=== PATIENT | female | born 1930 | race Caucasian/White ===

== ENCOUNTER 2016-09-06 10:03 | Emergency (ER) | payer OTHER ==
[~2016-09-06] VITALS: Ht 154.9 cm; Wt 74.5 kg
[~2016-09-06 10:03] MED LIST: CLC100 PO; CLR10 PO; CMD6 PO; CRG25 PO; DVN80 PO; FRRG PO; MULT-506 PO; OXYSR10 PO; SYN100 PO; ZNTT/150 PO
[2016-09-06 10:11] VITALS: TEMP 37.1; O2SAT 98; Ht 154.9 cm; Wt 74.5 kg
--- NOTE | 2016-09-06 10:27 | EMERGENCY ROOM VISIT NOTE ---
History Report prepared by Tong: Alessio Garcia Under the Supervision of: Dr. Sebas Lagos M.D. First contact with patient: 10:05 Chief Complaint: DIZZY Stated Complaint: DIZZY Nursing Triage Summary: Patient arrives via ALS from [facility] with complaints of dizziness, light headed. Peter has history of HTN, DM, she checked her BSG when she woke up and it was WNL, checked her BP and it was reading 200's/100's. She called her PCP and they told her to come to ED. History of Present Illness The patient is a 86 year old female who presents to the Emergency Room with complaints of constant dizziness starting around 0500 this morning. She states that she feels fuzzy. She additionally states that this morning her blood pressure was very high around 208/98, and her heart was racing. The patient states that she took her blood pressure medication this morning, and she states that she has not missed any dosages. She denies any abdominal pain. She states that she has not hit her head recently, and she has not had a lot of salt recently other than lightly salted cashews. Source of History: patient Onset: 0500 Position: other (global) Quality: other (dizziness) Timing: constant Associated Symptoms: No abdominal pain Note: Associated symptoms: High blood pressure and fast heart rate Review of Systems See HPI for pertinent positives & negatives. A total of 10 systems reviewed and were otherwise negative. Past Medical & Surgical Surgical Problems: (1) H/O: hysterectomy (2) History of appendectomy Hypertension Social History Smoking Status: Never Smoker Marital Status: single Occupation Status: retired Current/Historical Medications Scheduled Amlodipine (Norvasc), 5 MG PO DAILY Calcium Carbonate-Vitamin D (Calcium 600 + D), 1 TAB PO DAILY Carvedilol (Coreg), 1 TAB PO BID Ibandronate Sodium (Boniva), 1 TAB PO MONTHLY Levothyroxine Sodium (Levothyroxine Sodium), 1 TAB PO DAILY Metformin Hcl (Glucophage), 500 MG PO BID Multiple Vitamins W/ Minerals (Centrum Silver 50+Women), 1 TAB PO DAILY Valsartan (Diovan), 320 MG PO DAILY Allergies Coded Allergies: Acetaminophen (Verified Adverse Reaction, Mild, NAUSEA; HEART RACES, ELEVATED TEMP, 09/06/16) Sulfa Drugs (Verified Adverse Reaction, Mild, NAUSEA, 09/06/16) Uncoded Allergies: UNCLAS THER/AG (Allergy, Unknown, ALLERGY TO CLOROX & COSMETIC PRODUCTS, 04/01/09) Physical Exam Vital Signs Date Time Temp Pulse Resp B/P (MAP) Pulse Ox O2 Delivery O2 Flow Rate FiO2 09/06/16 12:16 60 18 167/82 94 09/06/16 11:41 56 171/80 95 Room Air 09/06/16 11:00 09/06/16 10:55 63 178/84 97 191/94 74 193/88 09/06/16 10:30 68 18 192/151 96 Room Air 09/06/16 10:17 72 09/06/16 10:11 98 Room Air 09/06/16 10:11 37.1 69 18 224/83 99 Room Air Physical Exam GENERAL: Patient is a healthy-appearing well-nourished female HEAD: Normocephalic atraumatic EYES: Ocular movements intact pupils equal and react to light OROPHARYNX mucous membranes are moist no exudates present no erythema or edema present NECK: Supple no nuchal rigidity CHEST: Good equal expansion LUNGS: Clear and equal to auscultation CARDIAC: Normal S1 and S2 ABDOMEN: Soft nontender no guarding BACK: No CVA tenderness EXTREMITIES: No pain upon palpation normal muscle strength in all groups no clubbing cyanosis or edema NEURO: Patient is following commands and answering questions appropriately. Alert and oriented x3 Cranial Nerves 2-12 grossly intact Medical Decision & Procedures ER Provider Diagnostic Interpretation: Radiology results as stated below per my review and radiologist interpretation: CT HEAD WITHOUT CONTRAST (CT) CLINICAL HISTORY: Dizziness, left-sided facial numbness COMPARISON STUDY: No previous studies for comparison. TECHNIQUE: Axial CT of the brain is performed from the vertex to the skull base. IV contrast was not administered for this examination. CT DOSE: 638.56 mGycm FINDINGS: No intra or extra-axial mass lesions are visualized. There is no CT evidence of acute cortical infarction. There is no evidence of midline shift. There is no acute hemorrhage. No calvarial fractures are visualized. There are subtle white matter hypodensities likely on a small vessel basis. There is no evidence of pathologic ventricular dilatation. There is no evidence of acute sinusitis IMPRESSION: No acute intracranial findings Electronically signed by: Tang Ayala M.D. 09/06/2016 10:53 AM Dictated Date/Time: 09/06/2016 10:50 AM CHEST ONE VIEW PORTABLE CLINICAL HISTORY: Pt c/o SOB dyspnea COMPARISON STUDY: 09/29/2006 FINDINGS: Mild stable cardiomegaly. Slight interstitial prominence stable. Fixed hiatal hernia. Diaphragms smooth. No infiltrate IMPRESSION: Mild stable cardiomegaly. Mild chronic interstitial change. Fixed hiatal hernia. Electronically signed by: Rikki Saucedo M.D. 09/06/2016 10:48 AM Dictated Date/Time: 09/06/2016 10:47 AM Laboratory Results 09/06/16 10:27 Red Blood Count 4.79, Mean Corpuscular Volume 85.6, Mean Corpuscular Hemoglobin 29.9, Mean Corpuscular Hemoglobin Concent 34.9, Mean Platelet Volume 8.9, Neutrophils (%) (Auto) 66.9, Lymphocytes (%) (Auto) 23.2, Monocytes (%) (Auto) 7.2, Eosinophils (%) (Auto) 2.1, Basophils (%) (Auto) 0.4, Neutrophils # (Auto) 3.14, Lymphocytes # (Auto) 1.09, Monocytes # (Auto) 0.34, Eosinophils # (Auto) 0.10, Basophils # (Auto) 0.02 09/06/16 10:27 Test 09/06/16 10:21 09/06/16 10:27 09/06/16 10:54 Bedside Glucose 134 mg/dl (70-90) White Blood Count 4.70 K/uL (4.8-10.8) Red Blood Count 4.79 M/uL (4.2-5.4) Hemoglobin 14.3 g/dL (12.0-16.0) Hematocrit 41.0 % (37-47) Mean Corpuscular Volume 85.6 fL (80-100) Mean Corpuscular Hemoglobin 29.9 pg (25-34) Mean Corpuscular Hemoglobin Concent 34.9 g/dl (32-36) Platelet Count 225 K/uL (130-400) Mean Platelet Volume 8.9 fL (7.4-10.4) Neutrophils (%) (Auto) 66.9 % Lymphocytes (%) (Auto) 23.2 % Monocytes (%) (Auto) 7.2 % Eosinophils (%) (Auto) 2.1 % Basophils (%) (Auto) 0.4 % Neutrophils # (Auto) 3.14 K/uL (1.4-6.5) Lymphocytes # (Auto) 1.09 K/uL (1.2-3.4) Monocytes # (Auto) 0.34 K/uL (0.11-0.59) Eosinophils # (Auto) 0.10 K/uL (0-0.5) Basophils # (Auto) 0.02 K/uL (0-0.2) RDW Standard Deviation 43.0 fL (36.4-46.3) RDW Coefficient of Variation 13.8 % (11.5-14.5) Immature Granulocyte % (Auto) 0.2 % Immature Granulocyte # (Auto) 0.01 K/uL (0.00-0.02) Anion Gap 6.0 mmol/L (3-11) Est Creatinine Clear Calc Drug Dose 42.8 ml/min Estimated GFR () 69.9 Estimated GFR (Non- 60.3 BUN/Creatinine Ratio 19.5 (10-20) Calcium Level 9.6 mg/dl (8.5-10.1) Total Bilirubin 0.3 mg/dl (0.2-1) Direct Bilirubin < 0.1 mg/dl (0-0.2) Aspartate Amino Transf (AST/SGOT) 13 U/L (15-37) Alanine Aminotransferase (ALT/SGPT) 17 U/L (12-78) Alkaline Phosphatase 60 U/L (45-117) Total Creatine Kinase 70 U/L (26-192) Creatine Kinase MB 2.9 ng/ml (0.5-3.6) Creatine Kinase MB Ratio 4.1 (0-3.0) Troponin I < 0.015 ng/ml (0-0.045) Total Protein 7.8 gm/dl (6.4-8.2) Albumin 3.7 gm/dl (3.4-5.0) Thyroid Stimulating Hormone (TSH) 2.720 uIu/ml (0.300-4.500) Urine Color YELLOW Urine Appearance CLEAR (CLEAR) Urine pH 7.5 (4.5-7.5) Urine Specific [place] 1.010 (1.000-1.030) Urine Protein NEG (NEG) Urine Glucose (UA) NEG (NEG) Urine Ketones NEG (NEG) Urine Occult Blood NEG (NEG) Urine Nitrite NEG (NEG) Urine Bilirubin NEG (NEG) Urine Urobilinogen NEG (NEG) Urine Leukocyte Esterase NEG (NEG) Labs reviewed by ED physician. ECG Indication: other (dizziness) Rate (beats per minute): 69 Rhythm: sinus rhythm Findings: 1st degree AV block, no acute ischemic change, no ectopy, other (Old septal infarct) ED Course 1005: Past medical records reviewed. The patient was evaluated in room C4. A complete history and physical examination was performed. 1157: Upon reexamination the patient is feeling better. I discussed results and treatment plan with the patient. She verbalizes agreement and understanding. The patient is ready for discharge. Medical Decision Differential diagnosis: Etiologies such as benign hypertension, hypertensive emergency, cardiovascular pathology, pheochromocytoma, electrolyte abnormality, renal disease, endorgan damage, as well as others were entertained. Medication Reconciliation: I attest that I have personally reviewed the patient' s current medication list Blood Pressure Screening: Patient was found to have an elevated blood pressure and was referred to their primary care doctor for recheck and further treatment This is an 86-year-old female who presents emergency department complaining of hypertension. The patient really does not have any other complaints besides this. She did take her hypertensive blood medications this morning. She does admit to eating extra salty food yesterday. I advised the patient hold off on salts but advised follow-up with patient's primary care physician. The patient has a normal CT of the head as well as normal laboratory work. In addition the patient's blood pressure fell in the emergency department without me doing anything. Based on these findings I felt that the patient can be safely discharged home for follow-up with her primary care physician. Patient and family were in agreement with the treatment plan. Impression Primary Impression: Hypertension Scribe Attestation The scribe's documentation has been prepared under my direction and personally reviewed by me in its entirety. I confirm that the note above accurately reflects all work, treatment, procedures, and medical decision making performed by me. Departure Information Dispostion Home / Self-Care Referrals No Doctor, Assigned (PCP) Forms HOME CARE DOCUMENTATION FORM, IMPORTANT VISIT INFORMATION Patient Instructions Hypertension Jomar, My [facility] Additional Instructions You were found to have an elevated blood pressure today (>120 sytolic or >90 diastolic). Per medicare guidelines, you need to follow up with this blood pressure screening with your Primary Care Physician (PCP). For a new PCP call [phone]. You have been examined and treated today on an emergency basis only. This is not a substitute for, or an effort to provide, complete comprehensive medical care. It is impossible to recognize and treat all injuries or illnesses in a single emergency department visit. It is therefore important that you follow up closely with Dr Tracy. Call as soon as possible for an appointment. Thank you for your time and consideration. I look forward to speaking with you again soon. Please don't hesitate to call us if you have any questions. Problem Qualifiers Primary Impression: Hypertension Hypertension type: unspecified Qualified Codes: I10 - Essential (primary) hypertension
--- NOTE | 2016-09-06 10:49 | DIAGNOSTIC IMAGING REPORT ---
CHEST ONE VIEW PORTABLE CLINICAL HISTORY: Pt c/o SOB dyspnea COMPARISON STUDY: 09/29/2006 FINDINGS: Mild stable cardiomegaly. Slight interstitial prominence stable. Fixed hiatal hernia. Diaphragms smooth. No infiltrate IMPRESSION: Mild stable cardiomegaly. Mild chronic interstitial change. Fixed hiatal hernia. Electronically signed by: Rikki Saucedo M.D. 09/06/2016 10:48 AM Dictated Date/Time: 09/06/2016 10:47 AM
[2016-09-06 10:55] LABS: BASO % 0.4 %; BASO ABS # 0.02 K/uL (0-0.2); COMPLETE YES; EOS % 2.1 %; IG% 0.2 %; LYMPH % 23.2 %; LYMPH ABS # 1.09 K/uL (1.2-3.4); MEAN CELL VOLUME 85.6 fL (80-100); MEAN CORPUSCULAR HEMOGLOBIN 29.9 pg (25-34); MEAN CORPUSCULAR HGB CONC 34.9 g/dl (32-36); MEAN PLATELET VOLUME 8.9 fL (7.4-10.4); MONO % 7.2 %; NEUT % 66.9 %; PLATELET COUNT 225 K/uL (130-400); RED BLOOD COUNT 4.79 M/uL (4.2-5.4)
--- NOTE | 2016-09-06 10:55 | DIAGNOSTIC IMAGING REPORT ---
CT HEAD WITHOUT CONTRAST (CT) CLINICAL HISTORY: Dizziness, left-sided facial numbness COMPARISON STUDY: No previous studies for comparison. TECHNIQUE: Axial CT of the brain is performed from the vertex to the skull base. IV contrast was not administered for this examination. CT DOSE: 638.56 mGycm FINDINGS: No intra or extra-axial mass lesions are visualized. There is no CT evidence of acute cortical infarction. There is no evidence of midline shift. There is no acute hemorrhage. No calvarial fractures are visualized. There are subtle white matter hypodensities likely on a small vessel basis. There is no evidence of pathologic ventricular dilatation. There is no evidence of acute sinusitis IMPRESSION: No acute intracranial findings Electronically signed by: Tang Ayala M.D. 09/06/2016 10:53 AM Dictated Date/Time: 09/06/2016 10:50 AM
[2016-09-06 11:03] LABS: ALT/SGPT 17 U/L (12-78); BLOOD UREA NITROGEN 17 mg/dl (7-18); BUN/CREATININE RATIO 19.5 (10-20); CALCIUM 9.6 mg/dl (8.5-10.1); CARBON DIOXIDE 29 mmol/L (21-32); CHLORIDE 104 mmol/L (98-107); CREATININE 0.87 mg/dl (0.60-1.20); GLUCOSE 134 mg/dl (70-99); POTASSIUM 4.6 mmol/L (3.5-5.1); SODIUM 139 mmol/L (136-145)
[2016-09-06 11:13] LABS: ALKALINE PHOSPHATASE 60 U/L (45-117); AST/SGOT 13 U/L (15-37); CKMB/CK RATIO 4.1 (0-3.0)
[2016-09-06 11:14] LABS: URINE APPEARANCE CLEAR (CLEAR); URINE BILIRUBIN NEG (NEG); URINE COLOR YELLOW; URINE NITRITE NEG (NEG); URINE PH 7.5 (4.5-7.5); UROBILINOGEN NEG (NEG)
[2016-09-06 11:16] LABS: MANUAL MICROSCOPIC REQUIRED? NO; REVIEW REQ? NO
[2016-09-06] MEDS ORDERED: GLC/500 PO (11:25)
[2016-09-06] MEDS ORDERED: MULT-1092 PO (11:25)
[2016-09-06] MEDS ORDERED: VALS320T PO (11:25)
[2016-09-06] MEDS ORDERED: AMLO-110 PO (11:25)
[2016-09-06] MEDS ORDERED: IBAN150T PO (11:25)
[2016-09-06] MEDS ORDERED: CARV12.52 PO (11:25)
[2016-09-06] MEDS ORDERED: LEVO112T4 PO (11:25)
[2016-09-06] MEDS ORDERED: CALC-20 PO (11:25)
[2016-09-06 12:16] VITALS: BP 167/82; PULSE 60; O2SAT 94
[2016-11-09] MEDS ORDERED: LCTX PO (17:18)
[2016-11-09] MEDS ORDERED: AMOX500T PO (17:18)
[2016-12-05] MEDS ORDERED: DOXY-300 PO (15:12)
== END 2016-09-06 12:18 | disposition home or self-care (01) ==
LOC: EDBD 10:03 → C.EDC 10:04
DX: I10 Essential (primary) hypertension (principal); I44.0 Atrioventricular block, first degree; Z90.710 Acquired absence of both cervix and uterus; Z98.890 Other specified postprocedural states; Z79.84 Long term (current) use of oral hypoglycemic drugs; Z79.899 Other long term (current) drug therapy; Z88.2 Allergy status to sulfonamides; Z88.6 Allergy status to analgesic agent

== ENCOUNTER 2016-11-02 21:01 | Inpatient (IN) | payer OTHER ==
[~2016-11-02] VITALS: Ht 154.9 cm; Wt 68.5 kg
[~2016-11-02 21:01] MED LIST changes: +AMLO-110 PO; +CALC-20 PO; +CARV12.52 PO; -CLC100 PO; -CLR10 PO; -CMD6 PO; -CRG25 PO; -DVN80 PO; -FRRG PO; +GLC/500 PO; +IBAN150T PO; +LEVO112T4 PO; +MULT-1092 PO; -MULT-506 PO; -OXYSR10 PO; -SYN100 PO; +VALS320T PO; -ZNTT/150 PO
[2016-11-02] MEDS ORDERED: SODIUM CHLORIDE 0.9% 1000ML 1,000 ML IV STA (21:43)
--- NOTE | 2016-11-02 21:52 | EMERGENCY ROOM VISIT NOTE ---
History Report prepared by Tong: Mikey Lyn Under the Supervision of: Guanakito JimenezO. First contact with patient: 21:42 Chief Complaint: DIARRHEA Stated Complaint: DIARRHEA,NAUSEA,DRY HEAVES Nursing Triage Summary: Diarrhea since yesterday History of Present Illness The patient is a 86 year old female who presents to the Emergency Room with complaints of diarrhea that began yesterday. She notes that she has not felt well over the past week. She denies any sick contacts. She has had multiple episodes yesterday and about 15 today as well. She is also experiencing nausea, dry heaving, generalized weakness, and gas build up. She denies any vomiting or hematochezia. She denies any recent travel or antibiotic use. Source of History: patient Onset: yesterday Position: other (GI) Symptom Intensity: Multiple episodes Quality: other (Diarrhea) Timing: intermittent Associated Symptoms: + nausea, + weakness, No vomiting, No hematochezia Note: She is dry heaving as well. Review of Systems See HPI for pertinent positives and negatives. A total of ten systems were reviewed and were otherwise negative. Past Medical & Surgical Surgical Problems: (1) H/O: hysterectomy (2) History of appendectomy Family History Omitted secondary to the patient's age. Social History Smoking Status: Never Smoker Smokeless Tobacco Use: No Drug Use: none Marital Status: single Occupation Status: retired Current/Historical Medications Scheduled Amlodipine (Norvasc), 5 MG PO DAILY Calcium Carbonate-Vitamin D (Calcium 600 + D), 1 TAB PO DAILY Carvedilol (Coreg), 1 TAB PO BID Ibandronate Sodium (Boniva), 1 TAB PO MONTHLY Levothyroxine Sodium (Levothyroxine Sodium), 1 TAB PO DAILY Metformin Hcl (Glucophage), 500 MG PO BID Multiple Vitamins W/ Minerals (Centrum Silver 50+Women), 1 TAB PO DAILY Valsartan (Diovan), 320 MG PO DAILY Allergies Coded Allergies: Acetaminophen (Verified Adverse Reaction, Mild, NAUSEA; HEART RACES, ELEVATED TEMP, 09/06/16) Sulfa Drugs (Verified Adverse Reaction, Mild, NAUSEA, 09/06/16) Uncoded Allergies: UNCLAS THER/AG (Allergy, Unknown, ALLERGY TO CLOROX & COSMETIC PRODUCTS, 04/01/09) Physical Exam Vital Signs Date Time Temp Pulse Resp B/P (MAP) Pulse Ox O2 Delivery O2 Flow Rate FiO2 11/02/16 22:37 62 15 105/59 96 Room Air 11/02/16 22:15 64 11/02/16 21:23 37.0 67 19 145/75 95 Room Air Physical Exam GENERAL: Awake, alert, well-appearing, in no distress HENT: Normocephalic, atraumatic. Oropharynx unremarkable. EYES: Normal conjunctiva. Sclera non-icteric. NECK: Supple. No nuchal rigidity. FROM. No JVD. RESPIRATORY: Clear to auscultation. CARDIAC: Regular rate, normal rhythm. Extremities warm and well perfused. Pulses equal. ABDOMEN: Soft, non-distended. No tenderness to palpation. No rebound or guarding. No masses. RECTAL: Deferred. MUSCULOSKELETAL: Chest examination reveals no tenderness. The back is symmetrical on inspection without obvious abnormality. There is no CVA tenderness to palpation. No joint edema. LOWER EXTREMITIES: Calves are equal size bilaterally and non-tender. No edema. No discoloration. NEURO: Normal sensorium. No sensory or motor deficits noted. SKIN: No rash or jaundice noted. Medical Decision & Procedures Laboratory Results 11/02/16 21:53 Red Blood Count 4.37, Mean Corpuscular Volume 85.4, Mean Corpuscular Hemoglobin 29.5, Mean Corpuscular Hemoglobin Concent 34.6, Mean Platelet Volume 9.2, Neutrophils (%) (Auto) 78.1, Lymphocytes (%) (Auto) 14.3, Monocytes (%) (Auto) 4.4, Eosinophils (%) (Auto) 2.7, Basophils (%) (Auto) 0.2, Neutrophils # (Auto) 6.73, Lymphocytes # (Auto) 1.23, Monocytes # (Auto) 0.38, Eosinophils # (Auto) 0.23, Basophils # (Auto) 0.02 11/02/16 21:53 Test 11/02/16 21:43 11/02/16 21:53 White Blood Count 8.62 K/uL (4.8-10.8) Red Blood Count 4.37 M/uL (4.2-5.4) Hemoglobin 12.9 g/dL (12.0-16.0) Hematocrit 37.3 % (37-47) Mean Corpuscular Volume 85.4 fL (80-100) Mean Corpuscular Hemoglobin 29.5 pg (25-34) Mean Corpuscular Hemoglobin Concent 34.6 g/dl (32-36) Platelet Count 240 K/uL (130-400) Mean Platelet Volume 9.2 fL (7.4-10.4) Neutrophils (%) (Auto) 78.1 % Lymphocytes (%) (Auto) 14.3 % Monocytes (%) (Auto) 4.4 % Eosinophils (%) (Auto) 2.7 % Basophils (%) (Auto) 0.2 % Neutrophils # (Auto) 6.73 K/uL (1.4-6.5) Lymphocytes # (Auto) 1.23 K/uL (1.2-3.4) Monocytes # (Auto) 0.38 K/uL (0.11-0.59) Eosinophils # (Auto) 0.23 K/uL (0-0.5) Basophils # (Auto) 0.02 K/uL (0-0.2) RDW Standard Deviation 43.5 fL (36.4-46.3) RDW Coefficient of Variation 13.9 % (11.5-14.5) Immature Granulocyte % (Auto) 0.3 % Immature Granulocyte # (Auto) 0.03 K/uL (0.00-0.02) Anion Gap 9.0 mmol/L (3-11) Est Creatinine Clear Calc Drug Dose 23.8 ml/min Estimated GFR () 36.2 Estimated GFR (Non- 31.2 BUN/Creatinine Ratio 20.9 (10-20) Calcium Level 7.6 mg/dl (8.5-10.1) Total Bilirubin 0.5 mg/dl (0.2-1) Direct Bilirubin 0.2 mg/dl (0-0.2) Aspartate Amino Transf (AST/SGOT) 34 U/L (15-37) Alanine Aminotransferase (ALT/SGPT) 63 U/L (12-78) Alkaline Phosphatase 145 U/L (45-117) Total Protein 7.1 gm/dl (6.4-8.2) Albumin 3.3 gm/dl (3.4-5.0) Lipase 472 U/L (73-393) Laboratory results reviewed by me Medications Administered Medications (Trade) Dose Ordered Sig/Radha Route Start Time Stop Time Status Last Admin Dose Admin Sodium Chloride 1,000 ml @ 150 mls/hr [id number] STAT IV 11/02/16 21:43 11/03/16 04:22 11/02/16 21:43 150 MLS/HR ED Course 2141: The patient was evaluated in room C12B. A complete history and physical exam was performed. 2142: Ordered Sodium Chloride 1000 ml @ 150 mls/hr IV 2245: Upon reexamination, the patient was resting. I discussed the test results and treatment plan with her. I discussed the patient's case with Dr. Jody Wiley Hospitalist. The patient will be evaluated for further management. Medical Decision Differential diagnoses include dehydration, gastritis, gastroenteritis, and viral syndrome. Patient started on IV fluids, IV Zofran. Patient found to have an elevated BUN/ creatinine as well as a mildly elevated lipase. Do not suspect significant pancreatitis she has mild dehydration continues to complain of weakness. [facility] Medication Reconcilliation Current Medication List: was personally reviewed by me Blood Pressure Screening Patient's blood pressure: Elevated blood pressure Blood pressure disposition: Elevated BP felt to be situational Consults Time Called: [phone] Consulting Physician: Dr. Jody Wiley Hospitalist Returned Call: [phone] Discussed the patient's case. The patient will be evaluated for further treatment and disposition. Impression Primary Impression: Dehydration Additional Impression: Diarrhea Scribe Attestation The scribe's documentation has been prepared under my direction and personally reviewed by me in its entirety. I confirm that the note above accurately reflects all work, treatment, procedures, and medical decision making performed by me. Departure Information Dispostion Being Evaluated By Hospitalist Referrals Tony Tracy M.D. (PCP) Patient Instructions My [facility] Problem Qualifiers
[2016-11-02 22:08] LABS: BASO % 0.2 %; BASO ABS # 0.02 K/uL (0-0.2); COMPLETE YES; EOS % 2.7 %; HEMATOCRIT 37.3 % (37-47); IG% 0.3 %; LYMPH % 14.3 %; LYMPH ABS # 1.23 K/uL (1.2-3.4); MEAN CELL VOLUME 85.4 fL (80-100); MEAN CORPUSCULAR HEMOGLOBIN 29.5 pg (25-34); MEAN CORPUSCULAR HGB CONC 34.6 g/dl (32-36); MEAN PLATELET VOLUME 9.2 fL (7.4-10.4); MONO % 4.4 %; NEUT % 78.1 %; PLATELET COUNT 240 K/uL (130-400); RED BLOOD COUNT 4.37 M/uL (4.2-5.4); WHITE BLOOD COUNT 8.62 K/uL (4.8-10.8)
[2016-11-02 22:28] LABS: BUN/CREATININE RATIO 20.9 (10-20); CALCIUM 7.6 mg/dl (8.5-10.1); CREATININE 1.5 mg/dl (0.60-1.20); POTASSIUM 3.4 mmol/L (3.5-5.1)
[2016-11-02 22:58] LABS: URINE APPEARANCE CLEAR (CLEAR); URINE BILIRUBIN NEG (NEG); URINE COLOR YELLOW; URINE NITRITE NEG (NEG); URINE SPECIFIC GRAVITY 1.018 (1.000-1.030); UROBILINOGEN NEG (NEG); ZZUR CULT IF INDIC CLEAN CATCH NO
[2016-11-02 23:00] LABS: MANUAL MICROSCOPIC REQUIRED? NO; REVIEW REQ? NO
[2016-11-02] MEDS ORDERED: METO50TA16 PO (23:04)
--- NOTE | 2016-11-03 00:08 | History and Physical ---
History & Physical Date & Time of Service: Nov 02, 2016 at 23:53 Chief Complaint: Diarrhea,Nausea,Dry Heaves Primary Care Physician: Tony Tracy M.D. History of Present Illness Source: patient, clinic records 86 year old female with history of DM on oral medications, HTN, Hypothyroidism, CKD 3, presenting with persistent diarrhea since 1 day prior to admission. Follows with Dr. Tracy for PCP. Lives in a Senior Apartment Complex. Patient was at her usual state of health, independent with activities of daily living, until yesterday when she started to have multiple episodes(10-15) of diarrhea, loose, watery, with occasional tinge of blood (attributed to hemorrhoids) associated with vague mild abdominal discomfort and weakness, poor appetite. Denies fever/chills. Today, the diarrhea persisted and patient also reports nausea. She was then brought to the ED. Upon arrival, patient was afebrile, stable BP. Crea elevated at 1.5 and K low at 3.4. She was given IV NSS. On exam, patient seen sitting up in bed, alert, appears comfortable, pleasant. Has mild vague generalized abdominal discomfort and mild nausea, otherwise denies other symptoms. Family History HTN parents Social History Smoking Status: Never Smoker Smokeless Tobacco Use: No Drug Use: none Marital Status: single Housing status: other ([facility] Occupational Status: retired Immunizations History of Influenza Vaccine: No History of Tetanus Vaccine?: Yes History of Pneumococcal: Yes History of Hepatitis B Vaccine: No Allergies Coded Allergies: Acetaminophen (Verified Adverse Reaction, Mild, NAUSEA; HEART RACES, ELEVATED TEMP, 11/02/16) Sulfa Drugs (Verified Adverse Reaction, Mild, NAUSEA, 11/02/16) Uncoded Allergies: UNCLAS THER/AG (Allergy, Unknown, ALLERGY TO [employer]OX & [employer]METIC PRODUCTS, 04/01/09) Home Medications Scheduled Amlodipine (Norvasc), 5 MG PO DAILY Calcium Carbonate-Vitamin D (Calcium 600 + D), 1 TAB PO DAILY Carvedilol (Coreg), 1 TAB PO BID Ibandronate Sodium (Boniva), 1 TAB PO MONTHLY Levothyroxine Sodium (Levothyroxine Sodium), 1 TAB PO DAILY Metformin Hcl (Glucophage), 500 MG PO BID Metoprolol Tartrate (Lopressor) (Lopressor), 50 MG PO BID Multiple Vitamins W/ Minerals (Centrum Silver 50+Women), 1 TAB PO DAILY Valsartan (Diovan), 320 MG PO DAILY Review of Systems Constitutional- no fever; no weight loss Eyes- no acute visual changes ENT- no sinus drainage; no pharyngitis Pulmonary- no cough, no wheezing, no shortness of breath Cardiac- no chest pain, no palpitations, no orthopnea, no dependent edema GI- (+) as noted above - no dysuria, no hematuria Musculoskeletal- no arthralgias, no myalgias Derm- no rashes, no new skin lesions, no changing skin lesions Hematologic- no unusual bruising, no unusual bleeding Lymphatics- no adenopathy Endocrine- no polyuria or polydipsia; no heat or cold intolerance Neuro- no headaches, no focal neurologic symptoms Psych- no anxiety, no depression Physical Exam Vital Signs Date Time Temp Pulse Resp B/P (MAP) Pulse Ox O2 Delivery O2 Flow Rate FiO2 11/02/16 22:37 62 15 105/59 96 Room Air 11/02/16 22:15 64 11/02/16 21:23 37.0 67 19 145/75 95 Room Air General Appearance: WD/WN, no apparent distress Head: normocephalic, atraumatic Eyes: normal inspection, EOMI, sclerae normal ENT: hearing grossly normal, pharynx normal, + pertinent finding (dry oral mucosa) Neck: supple, no adenopathy, thyroid normal, no JVD, trachea midline Respiratory/Chest: chest non-tender, lungs clear, normal breath sounds, no respiratory distress, no accessory muscle use Cardiovascular: regular rate, rhythm, no edema, no JVD, no murmur Abdomen/GI: non tender, soft, + abnormal bowel sounds (hyperactive), + pertinent finding (non distended) Back: normal inspection, no CVA tenderness Extremities/Musculoskelatal: normal inspection, no calf tenderness, no pedal edema, normal range of motion, non-tender 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, no motor/sensory deficits, alert, normal mood/affect, oriented x 3 Skin: normal color, warm/dry, no rash Lymphatic: no adenopathy Diagnostics Laboratory Results Results Past 24 Hours Test 11/02/16 21:53 11/02/16 22:35 11/02/16 23:42 Range/Units White Blood Count 8.62 4.8-10.8 K/uL Red Blood Count 4.37 4.2-5.4 M/uL Hemoglobin 12.9 12.0-16.0 g/dL Hematocrit 37.3 37-47 % Mean Corpuscular Volume 85.4 80-100 fL Mean Corpuscular Hemoglobin 29.5 25-34 pg Mean Corpuscular Hemoglobin Concent 34.6 32-36 g/dl Platelet Count 240 130-400 K/uL Mean Platelet Volume 9.2 7.4-10.4 fL Neutrophils (%) (Auto) 78.1 % Lymphocytes (%) (Auto) 14.3 % Monocytes (%) (Auto) 4.4 % Eosinophils (%) (Auto) 2.7 % Basophils (%) (Auto) 0.2 % Neutrophils # (Auto) 6.73 1.4-6.5 K/uL Lymphocytes # (Auto) 1.23 1.2-3.4 K/uL Monocytes # (Auto) 0.38 0.11-0.59 K/uL Eosinophils # (Auto) 0.23 0-0.5 K/uL Basophils # (Auto) 0.02 0-0.2 K/uL RDW Standard Deviation 43.5 36.4-46.3 fL RDW Coefficient of Variation 13.9 11.5-14.5 % Immature Granulocyte % (Auto) 0.3 % Immature Granulocyte # (Auto) 0.03 0.00-0.02 K/uL Sodium Level 134 136-145 mmol/L Potassium Level 3.4 3.5-5.1 mmol/L Chloride Level 103 98-107 mmol/L Carbon Dioxide Level 22 21-32 mmol/L Anion Gap 9.0 3-11 mmol/L Blood Urea Nitrogen 31 7-18 mg/dl Creatinine 1.50 0.60-1.20 mg/dl Est Creatinine Clear Calc Drug Dose 23.8 ml/min Estimated GFR () 36.2 Estimated GFR (Non- 31.2 BUN/Creatinine Ratio 20.9 10-20 Random Glucose 185 70-99 mg/dl Calcium Level 7.6 8.5-10.1 mg/dl Total Bilirubin 0.5 0.2-1 mg/dl Direct Bilirubin 0.2 0-0.2 mg/dl Aspartate Amino Transf (AST/SGOT) 34 15-37 U/L Alanine Aminotransferase (ALT/SGPT) 63 12-78 U/L Alkaline Phosphatase 145 45-117 U/L Total Protein 7.1 6.4-8.2 gm/dl Albumin 3.3 3.4-5.0 gm/dl Lipase 472 73-393 U/L Urine Color YELLOW Urine Appearance CLEAR CLEAR Urine pH 5.0 4.5-7.5 Urine Specific [place] 1.018 1.000-1.030 Urine Protein NEG NEG Urine Glucose (UA) NEG NEG Urine Ketones NEG NEG Urine Occult Blood NEG NEG Urine Nitrite NEG NEG Urine Bilirubin NEG NEG Urine Urobilinogen NEG NEG Urine Leukocyte Esterase NEG NEG EKG pending Impression Assessment and Plan 86 year old female with history of DM on oral medications, HTN, Hypothyroidism, CKD 3, presenting with persistent diarrhea since 1 day prior to admission. ACUTE GASTROENTERITIS - with dehydration, acute renal failure - BM > 10/day - ff up stool culture and C diff - empiric Cipro and Flagyl hold Imodium until C diff ruled out - IV NSS at 125 cc/hr, monitor volume status and decrease rate accordingly - monitor electrolytes - reports occasional tinge of blood in the stools, attributed to hemorrhoids monitor HYPOKALEMIA - from GI losses - PO K ordered check Mg ACUTE RENAL FAILURE ON CKD 3 likely pre renal from Diarrhea IV NSS hold SERENITY I and Metformin MILD LIPASE ELEVATION denies epigastric abdominal pain repeat Lipase in AM DM 2 on Metformin and Starlix-- HOLD for now ISS ordered HTN BP marginal continue Coreg, hold Losartan and Amlodipine HYPOTHYROIDISM continue Lthyroxine SCDs for DVT prophylaxis FULL CODE per patient Disposition anticipate d/c to her apartment when medically stable ff up with Dr. Tracy for PCP VTE Prophylaxis VTE Risk Assessment Done? Y/N: Yes Risk Level: Moderate Given or contraindicated: SCD's
[2016-11-03 00:10] LABS: MAGNESIUM 1.5 mg/dl (1.8-2.4)
[2016-11-03] MEDS ORDERED: POTASSIUM CHLORIDE 10 MEQ TABCR PO STA (00:29)
[2016-11-03 01:00] VITALS: BP 129/72; PULSE 65; TEMP 36.7; O2SAT 95; Ht 154.9 cm; Wt 68.5 kg
[2016-11-03] MEDS: SODIUM CHLORIDE 0.9% 1000ML 1,000 ML IV SCH ×3 (01:18→20:20)
[2016-11-03] MEDS ORDERED: CIPROFLOXACIN CONSULT ACTIVE PRN ×2 (01:27)
[2016-11-03] MEDS ORDERED: CIPROFLOXACIN 500 MG TAB PO STA (01:31)
[2016-11-03] MEDS ORDERED: MAGNESIUM SULFATE 1GM / D5W 1 GM in PREMIXED IN D5W 100 ML IV STA (05:38)
[2016-11-03] MEDS: LEVOTHYROXINE 112 MCG TAB PO SCH (06:02)
[2016-11-03 07:24] VITALS: BP 108/63; PULSE 60; TEMP 36.9; O2SAT 96
[2016-11-03] MEDS: METRONIDAZOLE 500 MG TAB PO SCH ×3 (07:36→20:18)
[2016-11-03] MEDS: CARVEDILOL 12.5 MG TAB PO SCH ×2 (07:36→20:19)
[2016-11-03 08:29] LABS: BASO % 0.3 %; BASO ABS # 0.02 K/uL (0-0.2); COMPLETE YES; HEMATOCRIT 36.6 % (37-47); IG% 0.3 %; LYMPH % 16.1 %; LYMPH ABS # 1.02 K/uL (1.2-3.4); MEAN CELL VOLUME 85.3 fL (80-100); MEAN CORPUSCULAR HEMOGLOBIN 29.6 pg (25-34); MEAN CORPUSCULAR HGB CONC 34.7 g/dl (32-36); MEAN PLATELET VOLUME 9.4 fL (7.4-10.4); MONO % 9.6 %; NEUT % 68.7 %; PLATELET COUNT 219 K/uL (130-400); RED BLOOD COUNT 4.29 M/uL (4.2-5.4); WHITE BLOOD COUNT 6.34 K/uL (4.8-10.8)
[2016-11-03 09:14] LABS: BUN/CREATININE RATIO 23.2 (10-20); CALCIUM 7.8 mg/dl (8.5-10.1); CREATININE 1.1 mg/dl (0.60-1.20); MAGNESIUM 2.1 mg/dl (1.8-2.4); POTASSIUM 3.7 mmol/L (3.5-5.1)
[2016-11-03] MEDS: CIPROFLOXACIN 250 MG TAB PO SCH ×2 (10:33→20:19)
[2016-11-03 14:59] VITALS: BP 127/71; PULSE 64; TEMP 36.7; O2SAT 95
--- NOTE | 2016-11-03 17:10 | Progress Note ---
Internal Med Progress Note Date of Service: Nov 03, 2016. Provider Documentation: SUBJECTIVE: diarrhea is improving tolerating clears fine no abdominal pain or nausea afebrile no sob OBJECTIVE: Vital Signs-as noted below Exam: General-alert and oriented. Not in distress ENT-normal hearing Neck-no neck masses Lungs-cta b/l no wheezing no crackles Heart-s1 and s2 heard regular rhythm, no murmurs Abdomen-soft bowel sounds present non tender no distension Extremities no edema present no erythema Neuro-alert and oriented moves extremities Lab data as noted below. ASSESSMENT & PLAN: 86 year old female with history of DM on oral medications, HTN, Hypothyroidism, CKD 3, presenting with persistent diarrhea since 1 day prior to admission. ACUTE GASTROENTERITIS Presented with dehydration, acute renal failure BM > 10/day Will ff up stool culture and C diff on empiric Cipro and Flagyl on iv fluids improving tolerating clears- will advance to full liquid diet cut back on fluids HYPOKALEMIA replaced ACUTE RENAL FAILURE ON CKD 3 holding SERENITY I and Metformin iv fluids resolved MILD LIPASE ELEVATION denies epigastric abdominal pain repeat Lipase in AM improved DM 2 on Metformin and Starlix-- HELD for now ISS ordered will monitor HTN BP marginal continue Coreg, holding Losartan and Amlodipine will monitor. HYPOTHYROIDISM continue Levothyroxine SCDs for DVT prophylaxis FULL CODE per patient DISPOSITION to be determined Vital Signs: Date Time Temp Pulse Resp B/P (MAP) Pulse Ox O2 Delivery O2 Flow Rate FiO2 11/03/16 14:59 36.7 64 16 127/71 (89) 95 Room Air 11/03/16 07:30 Room Air 11/03/16 07:24 36.9 60 16 108/63 (78) 96 Room Air 11/03/16 01:00 36.7 65 18 129/72 95 Room Air 11/03/16 00:32 67 18 117/68 98 11/02/16 22:37 62 15 105/59 96 Room Air 11/02/16 22:15 64 11/02/16 21:23 37.0 67 19 145/75 95 Room Air Lab Results: Results Past 24 Hours Test 11/02/16 21:53 11/02/16 22:35 11/03/16 07:59 Range/Units White Blood Count 8.62 6.34 4.8-10.8 K/uL Red Blood Count 4.37 4.29 4.2-5.4 M/uL Hemoglobin 12.9 12.7 12.0-16.0 g/dL Hematocrit 37.3 36.6 37-47 % Mean Corpuscular Volume 85.4 85.3 80-100 fL Mean Corpuscular Hemoglobin 29.5 29.6 25-34 pg Mean Corpuscular Hemoglobin Concent 34.6 34.7 32-36 g/dl Platelet Count 240 219 130-400 K/uL Mean Platelet Volume 9.2 9.4 7.4-10.4 fL Neutrophils (%) (Auto) 78.1 68.7 % Lymphocytes (%) (Auto) 14.3 16.1 % Monocytes (%) (Auto) 4.4 9.6 % Eosinophils (%) (Auto) 2.7 5.0 % Basophils (%) (Auto) 0.2 0.3 % Neutrophils # (Auto) 6.73 4.35 1.4-6.5 K/uL Lymphocytes # (Auto) 1.23 1.02 1.2-3.4 K/uL Monocytes # (Auto) 0.38 0.61 0.11-0.59 K/uL Eosinophils # (Auto) 0.23 0.32 0-0.5 K/uL Basophils # (Auto) 0.02 0.02 0-0.2 K/uL RDW Standard Deviation 43.5 43.6 36.4-46.3 fL RDW Coefficient of Variation 13.9 14.1 11.5-14.5 % Immature Granulocyte % (Auto) 0.3 0.3 % Immature Granulocyte # (Auto) 0.03 0.02 0.00-0.02 K/uL Sodium Level 134 138 136-145 mmol/L Potassium Level 3.4 3.7 3.5-5.1 mmol/L Chloride Level 103 108 98-107 mmol/L Carbon Dioxide Level 22 23 21-32 mmol/L Anion Gap 9.0 7.0 3-11 mmol/L Blood Urea Nitrogen 31 26 7-18 mg/dl Creatinine 1.50 1.10 0.60-1.20 mg/dl Est Creatinine Clear Calc Drug Dose 23.8 32.5 ml/min Estimated GFR () 36.2 52.6 Estimated GFR (Non- 31.2 45.4 BUN/Creatinine Ratio 20.9 23.2 10-20 Random Glucose 185 142 70-99 mg/dl Calcium Level 7.6 7.8 8.5-10.1 mg/dl Magnesium Level 1.5 2.1 1.8-2.4 mg/dl Total Bilirubin 0.5 0.2-1 mg/dl Direct Bilirubin 0.2 0-0.2 mg/dl Aspartate Amino Transf (AST/SGOT) 34 15-37 U/L Alanine Aminotransferase (ALT/SGPT) 63 12-78 U/L Alkaline Phosphatase 145 45-117 U/L Total Protein 7.1 6.4-8.2 gm/dl Albumin 3.3 3.4-5.0 gm/dl Lipase 472 239 73-393 U/L Urine Color YELLOW Urine Appearance CLEAR CLEAR Urine pH 5.0 4.5-7.5 Urine Specific [place] 1.018 1.000-1.030 Urine Protein NEG NEG Urine Glucose (UA) NEG NEG Urine Ketones NEG NEG Urine Occult Blood NEG NEG Urine Nitrite NEG NEG Urine Bilirubin NEG NEG Urine Urobilinogen NEG NEG Urine Leukocyte Esterase NEG NEG
[2016-11-03 19:43] VITALS: BP 134/64; PULSE 63; TEMP 36.3; O2SAT 97
[2016-11-04 00:30] VITALS: BP 123/70; PULSE 55; TEMP 36.7; O2SAT 93
[2016-11-04] MEDS: LEVOTHYROXINE 112 MCG TAB PO SCH (06:12)
[2016-11-04 07:09] VITALS: BP 147/63; PULSE 57; TEMP 36.7; O2SAT 92
[2016-11-04 07:59] LABS: BASO % 0.4 %; BASO ABS # 0.02 K/uL (0-0.2); COMPLETE YES; HEMATOCRIT 38.3 % (37-47); IG% 0.2 %; LYMPH % 22.2 %; LYMPH ABS # 1.12 K/uL (1.2-3.4); MEAN CELL VOLUME 87.4 fL (80-100); MEAN CORPUSCULAR HEMOGLOBIN 28.1 pg (25-34); MEAN CORPUSCULAR HGB CONC 32.1 g/dl (32-36); MEAN PLATELET VOLUME 9.5 fL (7.4-10.4); MONO % 6.7 %; NEUT % 64.5 %; PLATELET COUNT 218 K/uL (130-400); RED BLOOD COUNT 4.38 M/uL (4.2-5.4); WHITE BLOOD COUNT 5.04 K/uL (4.8-10.8)
[2016-11-04] MEDS: METRONIDAZOLE 500 MG TAB PO SCH ×3 (08:29→20:12)
[2016-11-04] MEDS: CARVEDILOL 12.5 MG TAB PO SCH ×2 (08:30→20:12)
[2016-11-04] MEDS: SODIUM CHLORIDE 0.9% 1000ML 1,000 ML IV SCH (08:31)
[2016-11-04 08:32] VITALS: PULSE 64
[2016-11-04 08:50] LABS: BUN/CREATININE RATIO 17.5 (10-20); CALCIUM 8.3 mg/dl (8.5-10.1); CREATININE 0.76 mg/dl (0.60-1.20); MAGNESIUM 1.9 mg/dl (1.8-2.4); POTASSIUM 4.1 mmol/L (3.5-5.1)
[2016-11-04] MEDS: CIPROFLOXACIN 250 MG TAB PO SCH ×2 (10:10→22:04)
--- NOTE | 2016-11-04 15:15 | Progress Note ---
Internal Med Progress Note Date of Service: Nov 04, 2016. Provider Documentation: SUBJECTIVE: feeling much better today had only one bowel movement today which was loose afebrile no sob no abdominal pain tolerating full liquid diet fine. OBJECTIVE: Vital Signs-as noted below Exam: General-alert and oriented. Not in distress ENT-normal hearing Neck-no neck masses Lungs-cta b/l no wheezing no crackles Heart-s1 and s2 heard regular rhythm, no murmurs Abdomen-soft bowel sounds present non tender no distension Extremities no edema present no erythema Neuro-alert and oriented moves extremities Lab data as noted below. ASSESSMENT & PLAN: 86 year old female with history of DM on oral medications, HTN, Hypothyroidism, CKD 3, presenting with persistent diarrhea since 1 day prior to admission. ACUTE GASTROENTERITIS Presented with dehydration, acute renal failure BM > 10/day Will ff up stool culture and C diff on empiric Cipro and Flagyl on iv fluids improving tolerating full liquid diet advancing diet to soft diet will monitor HYPOKALEMIA replaced ACUTE RENAL FAILURE ON CKD 3 holding SERENITY I and Metformin iv fluids resolved MILD LIPASE ELEVATION denies epigastric abdominal pain repeat Lipase in AM improved DM 2 on Metformin and Starlix-- HELD for now ISS ordered will monitor HTN BP marginal continue Coreg, holding Losartan and Amlodipine which will be restarted will monitor. HYPOTHYROIDISM continue Levothyroxine SCDs for DVT prophylaxis FULL CODE per patient DISPOSITION pt/ot to be determined possible d/c in 1-2 days Vital Signs: Date Time Temp Pulse Resp B/P (MAP) Pulse Ox O2 Delivery O2 Flow Rate FiO2 11/04/16 08:32 64 11/04/16 08:00 Room Air 11/04/16 07:09 36.7 57 18 147/63 (91) 92 Room Air 11/04/16 00:30 36.7 55 18 123/70 (87) 93 Room Air 11/04/16 00:00 Room Air 11/03/16 19:43 36.3 63 18 134/64 (87) 97 Room Air 11/03/16 16:00 Room Air Lab Results: Results Past 24 Hours Test 11/04/16 07:22 Range/Units White Blood Count 5.04 4.8-10.8 K/uL Red Blood Count 4.38 4.2-5.4 M/uL Hemoglobin 12.3 12.0-16.0 g/dL Hematocrit 38.3 37-47 % Mean Corpuscular Volume 87.4 80-100 fL Mean Corpuscular Hemoglobin 28.1 25-34 pg Mean Corpuscular Hemoglobin Concent 32.1 32-36 g/dl Platelet Count 218 130-400 K/uL Mean Platelet Volume 9.5 7.4-10.4 fL Neutrophils (%) (Auto) 64.5 % Lymphocytes (%) (Auto) 22.2 % Monocytes (%) (Auto) 6.7 % Eosinophils (%) (Auto) 6.0 % Basophils (%) (Auto) 0.4 % Neutrophils # (Auto) 3.25 1.4-6.5 K/uL Lymphocytes # (Auto) 1.12 1.2-3.4 K/uL Monocytes # (Auto) 0.34 0.11-0.59 K/uL Eosinophils # (Auto) 0.30 0-0.5 K/uL Basophils # (Auto) 0.02 0-0.2 K/uL RDW Standard Deviation 45.4 36.4-46.3 fL RDW Coefficient of Variation 14.3 11.5-14.5 % Immature Granulocyte % (Auto) 0.2 % Immature Granulocyte # (Auto) 0.01 0.00-0.02 K/uL Sodium Level 143 136-145 mmol/L Potassium Level 4.1 3.5-5.1 mmol/L Chloride Level 113 98-107 mmol/L Carbon Dioxide Level 21 21-32 mmol/L Anion Gap 9.0 3-11 mmol/L Blood Urea Nitrogen 13 7-18 mg/dl Creatinine 0.76 0.60-1.20 mg/dl Est Creatinine Clear Calc Drug Dose 47.0 ml/min Estimated GFR () 82.3 Estimated GFR (Non- 71.0 BUN/Creatinine Ratio 17.5 10-20 Random Glucose 126 70-99 mg/dl Calcium Level 8.3 8.5-10.1 mg/dl Magnesium Level 1.9 1.8-2.4 mg/dl Microbiology Results 11/04/16 C.difficile Toxin B Gene (PCR) - Final, Complete No C. difficile toxin B gene detected 11/04/16 Shiga Toxin Test, Received Pending 11/04/16 Stool Culture, Received Pending
[2016-11-04 15:18] VITALS: BP 121/60; PULSE 58; TEMP 36.8; O2SAT 94
[2016-11-04 20:11] VITALS: BP 148/90; PULSE 83
[2016-11-04 23:40] VITALS: BP 172/71; PULSE 56; TEMP 36.8; O2SAT 95
[2016-11-05 02:53] VITALS: BP 159/60; PULSE 60
[2016-11-05] MEDS: LEVOTHYROXINE 112 MCG TAB PO SCH (06:33)
[2016-11-05 07:21] VITALS: BP 165/65; PULSE 54; TEMP 36.7; O2SAT 94
[2016-11-05 07:34] LABS: BASO % 0.8 %; BASO ABS # 0.04 K/uL (0-0.2); COMPLETE YES; EOS % 6.9 %; HEMATOCRIT 36.1 % (37-47); IG% 0.4 %; LYMPH % 25.7 %; LYMPH ABS # 1.26 K/uL (1.2-3.4); MEAN CELL VOLUME 86.2 fL (80-100); MEAN CORPUSCULAR HEMOGLOBIN 28.4 pg (25-34); MEAN PLATELET VOLUME 9.7 fL (7.4-10.4); MONO % 11.2 %; PLATELET COUNT 199 K/uL (130-400); RED BLOOD COUNT 4.19 M/uL (4.2-5.4); WHITE BLOOD COUNT 4.91 K/uL (4.8-10.8)
[2016-11-05 07:39] VITALS: PULSE 62
[2016-11-05] MEDS: CARVEDILOL 12.5 MG TAB PO SCH (07:40)
[2016-11-05] MEDS: METRONIDAZOLE 500 MG TAB PO SCH (07:40)
[2016-11-05] MEDS ORDERED: AMLODIPINE BESYLATE 5 MG TAB PO SCH (08:00)
[2016-11-05] MEDS ORDERED: VALSARTAN 80 MG TAB PO SCH (08:00)
[2016-11-05] MEDS ORDERED: METOPROLOL TARTRATE 50 MG TAB PO SCH (08:00)
[2016-11-05 08:02] LABS: BUN/CREATININE RATIO 12.2 (10-20); CALCIUM 8.8 mg/dl (8.5-10.1); CREATININE 0.81 mg/dl (0.60-1.20); MAGNESIUM 1.6 mg/dl (1.8-2.4); POTASSIUM 3.8 mmol/L (3.5-5.1)
[2016-11-05] MEDS ORDERED: MAGNESIUM SULFATE 1GM / D5W 1 GM in PREMIXED IN D5W 100 ML IV SCH (08:30)
[2016-11-05] MEDS: CIPROFLOXACIN 250 MG TAB PO SCH (08:48)
[2016-11-05] MEDS ORDERED: MAGNESIUM OXIDE 400 MG TAB PO ONE (09:00)
[2016-11-05 09:20] VITALS: BP 152/67; PULSE 55; O2SAT 97
--- NOTE | 2016-11-05 14:47 | Discharge Instructions ---
Discharge Instructions Date of Service Nov 05, 2016. Admission Reason for Admission: Diarrhea Discharge Discharge Diagnosis / Problem: Diarrhea, gastroeneteritis,arf Discharge Goals Goal(s): Decrease discomfort, Improve function Activity Recommendations Activity Limitations: resume your previous activity . Instructions / Follow-Up Instructions / Follow-Up FOLLOWUP WITH FAMILY DOCTOR IN ONE WEEK Current Hospital Diet Patient's current hospital diet: Diabetes Type 2 Diet, Low Fiber Diet Discharge Diet Recommended Diet: AHA Diet (Heart Healthy), Diabetes Type 2 Diet Pending Studies Studies pending at discharge: no Medical Emergencies . Who to Call and When: Medical Emergencies: If at any time you feel your situation is an emergency, please call 911 immediately. . Non-Emergent Contact Non-Emergency issues call your: Primary Care Provider . . "Provider Documentation" section prepared by Patrick Duran. . VTE Core Measure Inpt VTE Proph given/why not?: SCD's
[2016-11-05 15:02] VITALS: BP 152/67; PULSE 55; TEMP 36.7; O2SAT 97
--- NOTE | 2016-11-05 17:52 | Progress Note ---
Internal Med Progress Note Date of Service: Nov 05, 2016. Provider Documentation: SUBJECTIVE: feeling much better diarrhea improved tolerating soft diet afebrile ambulated fine 'want to go home OBJECTIVE: Vital Signs-as noted below Exam: General-alert and oriented. Not in distress ENT-normal hearing Neck-no neck masses Lungs-cta b/l no wheezing no crackles Heart-s1 and s2 heard regular rhythm, no murmurs Abdomen-soft bowel sounds present non tender no distension Extremities no edema present no erythema Neuro-alert and oriented moves extremities Lab data as noted below. ASSESSMENT & PLAN: 86 year old female with history of DM on oral medications, HTN, Hypothyroidism, CKD 3, presenting with persistent diarrhea since 1 day prior to admission. ACUTE GASTROENTERITIS Presented with dehydration, acute renal failure BM > 10/day Will ff up stool culture and C diff on empiric Cipro and Flagyl on iv fluids improved tolerated soft diet c diff and stool cx negative discharged home today HYPOKALEMIA replaced ACUTE RENAL FAILURE ON CKD 3 holding SERENITY I and Metformin iv fluids resolved MILD LIPASE ELEVATION denies epigastric abdominal pain repeat Lipase in AM improved DM 2 on Metformin and Starlix-- HELD for now ISS ordered d/c on home meds HTN BP marginal continue Coreg, holding Losartan and Amlodipine which will be restarted BP elevated. restarted all home meds f/u with pcp HYPOTHYROIDISM continue Levothyroxine discharged home Vital Signs: Date Time Temp Pulse Resp B/P (MAP) Pulse Ox O2 Delivery O2 Flow Rate FiO2 11/05/16 15:02 36.7 55 18 97 Room Air 11/05/16 09:20 55 97 11/05/16 08:00 Room Air 11/05/16 07:39 62 11/05/16 07:21 36.7 54 18 165/65 (98) 94 Room Air 11/05/16 02:53 60 159/60 (93) 11/05/16 00:00 Room Air 11/04/16 23:40 36.8 56 19 172/71 (104) 95 Room Air 11/04/16 20:11 83 148/90 (109) 11/04/16 20:00 Room Air Lab Results: Results Past 24 Hours Test 11/05/16 06:48 Range/Units White Blood Count 4.91 4.8-10.8 K/uL Red Blood Count 4.19 4.2-5.4 M/uL Hemoglobin 11.9 12.0-16.0 g/dL Hematocrit 36.1 37-47 % Mean Corpuscular Volume 86.2 80-100 fL Mean Corpuscular Hemoglobin 28.4 25-34 pg Mean Corpuscular Hemoglobin Concent 33.0 32-36 g/dl Platelet Count 199 130-400 K/uL Mean Platelet Volume 9.7 7.4-10.4 fL Neutrophils (%) (Auto) 55.0 % Lymphocytes (%) (Auto) 25.7 % Monocytes (%) (Auto) 11.2 % Eosinophils (%) (Auto) 6.9 % Basophils (%) (Auto) 0.8 % Neutrophils # (Auto) 2.70 1.4-6.5 K/uL Lymphocytes # (Auto) 1.26 1.2-3.4 K/uL Monocytes # (Auto) 0.55 0.11-0.59 K/uL Eosinophils # (Auto) 0.34 0-0.5 K/uL Basophils # (Auto) 0.04 0-0.2 K/uL RDW Standard Deviation 45.1 36.4-46.3 fL RDW Coefficient of Variation 14.4 11.5-14.5 % Immature Granulocyte % (Auto) 0.4 % Immature Granulocyte # (Auto) 0.02 0.00-0.02 K/uL Sodium Level 141 136-145 mmol/L Potassium Level 3.8 3.5-5.1 mmol/L Chloride Level 111 98-107 mmol/L Carbon Dioxide Level 25 21-32 mmol/L Anion Gap 5.0 3-11 mmol/L Blood Urea Nitrogen 10 7-18 mg/dl Creatinine 0.81 0.60-1.20 mg/dl Est Creatinine Clear Calc Drug Dose 44.1 ml/min Estimated GFR () 76.2 Estimated GFR (Non- 65.8 BUN/Creatinine Ratio 12.2 10-20 Random Glucose 130 70-99 mg/dl Calcium Level 8.8 8.5-10.1 mg/dl Magnesium Level 1.6 1.8-2.4 mg/dl
--- NOTE | 2016-11-05 19:11 | Discharge Summary ---
Discharge Summary Date of Service Nov 05, 2016. Discharge Summary Admission Date: Nov 02, 2016 at 23:42 Discharge Date: Nov 05, 2016 Discharge Disposition: Home Principal Diagnosis: DIARRHEA ARF ACUTE GASTROENTERITIS Secondary Diagnoses/Problems: f DM on oral medications, HTN, Hypothyroidism, CKD 3, Medication Reconciliation Continued Medications: Amlodipine (Norvasc) 5 Mg Tab 5 MG PO DAILY, TAB Calcium Carbonate-Vitamin D (Calcium 600 + D) 1 Tab Tab 1 TAB PO DAILY Carvedilol (Coreg) 12.5 Mg Tab 1 TAB PO BID, TAB Ibandronate Sodium (Boniva) 150 Mg Tab 1 TAB PO MONTHLY, TAB Levothyroxine Sodium (Levothyroxine Sodium) 112 Mcg Tab 1 TAB PO DAILY, TAB Metformin Hcl (Glucophage) 500 Mg Tab 500 MG PO BID, TAB Metoprolol Tartrate (Lopressor) (Lopressor) 50 Mg Tab 50 MG PO BID, TAB Multiple Vitamins W/ Minerals (Centrum Silver 50+Women) 1 Tab Tab 1 TAB PO DAILY Valsartan (Diovan) 320 Mg Tab 320 MG PO DAILY, TAB Admission Information HPI (per Admitting provider): 86 year old female with history of DM on oral medications, HTN, Hypothyroidism, CKD 3, presenting with persistent diarrhea since 1 day prior to admission. Follows with Dr. Tracy for PCP. Lives in a Senior Apartment Complex. Patient was at her usual state of health, independent with activities of daily living, until yesterday when she started to have multiple episodes(10-15) of diarrhea, loose, watery, with occasional tinge of blood (attributed to hemorrhoids) associated with vague mild abdominal discomfort and weakness, poor appetite. Denies fever/chills. Today, the diarrhea persisted and patient also reports nausea. She was then brought to the ED. Upon arrival, patient was afebrile, stable BP. Crea elevated at 1.5 and K low at 3.4. She was given IV NSS. On exam, patient seen sitting up in bed, alert, appears comfortable, pleasant. Has mild vague generalized abdominal discomfort and mild nausea, otherwise denies other symptoms. Physical Exam (per Admitting): General Appearance: WD/WN, no apparent distress Head: normocephalic, atraumatic Eyes: normal inspection, EOMI, sclerae normal ENT: hearing grossly normal, pharynx normal, + pertinent finding (dry oral mucosa) Neck: supple, no adenopathy, thyroid normal, no JVD, trachea midline Respiratory/Chest: chest non-tender, lungs clear, normal breath sounds, no respiratory distress, no accessory muscle use Cardiovascular: regular rate, rhythm, no edema, no JVD, no murmur Abdomen/GI: non tender, soft, + abnormal bowel sounds (hyperactive), + pertinent finding (non distended) Back: normal inspection, no CVA tenderness Extremities/Musculoskelatal: normal inspection, no calf tenderness, no pedal edema, normal range of motion, non-tender 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 ACUTE GASTROENTERITIS Presented with dehydration, acute renal failure BM > 10/day Will ff up stool culture and C diff on empiric Cipro and Flagyl on iv fluids improved tolerated soft diet c diff and stool cx negative discharged home today HYPOKALEMIA replaced ACUTE RENAL FAILURE ON CKD 3 holding SERENITY I and Metformin iv fluids resolved MILD LIPASE ELEVATION denies epigastric abdominal pain repeat Lipase in AM improved DM 2 on Metformin and Starlix-- HELD for now ISS ordered d/c on home meds HTN BP marginal continue Coreg, holding Losartan and Amlodipine which will be restarted BP elevated. restarted all home meds f/u with pcp HYPOTHYROIDISM continue Levothyroxine discharged home Total time spent on discharge = 35MINUTES This includes examination of the patient, discharge planning, medication reconciliation, and communication with other providers. Discharge Instructions Discharge Instructions Date of Service Nov 05, 2016. Admission Reason for Admission: Diarrhea Discharge Discharge Diagnosis / Problem: Diarrhea, gastroeneteritis,arf Discharge Goals Goal(s): Decrease discomfort, Improve function Activity Recommendations Activity Limitations: resume your previous activity . Instructions / Follow-Up Instructions / Follow-Up FOLLOWUP WITH FAMILY DOCTOR IN ONE WEEK Current Hospital Diet Patient's current hospital diet: Diabetes Type 2 Diet, Low Fiber Diet Discharge Diet Recommended Diet: AHA Diet (Heart Healthy), Diabetes Type 2 Diet Pending Studies Studies pending at discharge: no Medical Emergencies . Who to Call and When: Medical Emergencies: If at any time you feel your situation is an emergency, please call 911 immediately. . Non-Emergent Contact Non-Emergency issues call your: Primary Care Provider . . "Provider Documentation" section prepared by Patrick Duran. . VTE Core Measure Inpt VTE Proph given/why not?: SCD's
[2016-11-05] MEDS ORDERED: MAGNESIUM OXIDE 400 MG TAB PO SCH (20:00)
[2016-12-05] MEDS ORDERED: DOXY-300 PO (15:12)
== END 2016-11-05 16:45 | disposition home or self-care (01) | DRG 392 ==
LOC: C.EDB 21:02 → C.MS4W 23:42 → ENRESERV 11-03 00:24
PROVIDERS: ADMIT Internal Medicine; ATTEND Internal Medicine
DX: K52.9 Noninfective gastroenteritis and colitis, unspecified (principal); N17.9 Acute kidney failure, unspecified; E86.0 Dehydration; N18.3 Chronic kidney disease, stage 3 (moderate); I12.9 Hypertensive chronic kidney disease with stage 1 through stage 4 chronic kidney disease, or unspecified chronic kidney disease; E03.9 Hypothyroidism, unspecified; E87.6 Hypokalemia; R74.8 Abnormal levels of other serum enzymes; Z79.899 Other long term (current) drug therapy; Z79.83 Long term (current) use of bisphosphonates; Z79.84 Long term (current) use of oral hypoglycemic drugs

== ENCOUNTER 2016-11-07 00:59 | Inpatient (IN) | payer OTHER ==
[~2016-11-07] VITALS: Ht 154.9 cm; Wt 69.0 kg
[~2016-11-07 00:59] MED LIST changes: +METO50TA16 PO
[2016-11-07] MEDS ORDERED: SODIUM CHLORIDE 0.9% 1000ML 1,000 ML IV STA (01:23)
[2016-11-07] MEDS ORDERED: ONDANSETRON INJ 2 MG/ML 2 ML VIAL IV STA ×2 (01:23→02:52)
[2016-11-07 02:17] LABS: BASO % 0.2 %; BASO ABS # 0.02 K/uL (0-0.2); COMPLETE YES; EOS % 1.9 %; HEMATOCRIT 38.1 % (37-47); IG% 0.2 %; LYMPH ABS # 0.94 K/uL (1.2-3.4); MEAN CELL VOLUME 86.4 fL (80-100); MEAN CORPUSCULAR HEMOGLOBIN 30.2 pg (25-34); MEAN CORPUSCULAR HGB CONC 34.9 g/dl (32-36); MEAN PLATELET VOLUME 9.7 fL (7.4-10.4); MONO % 4.4 %; NEUT % 82.3 %; PLATELET COUNT 239 K/uL (130-400); RED BLOOD COUNT 4.41 M/uL (4.2-5.4); WHITE BLOOD COUNT 8.55 K/uL (4.8-10.8)
[2016-11-07 02:40] LABS: BUN/CREATININE RATIO 7.5 (10-20); C-REACTIVE PROTEIN 1.03 mg/dl (0-0.29); CALCIUM 8.5 mg/dl (8.5-10.1); CREATININE 1.2 mg/dl (0.60-1.20); POTASSIUM 3.7 mmol/L (3.5-5.1)
--- NOTE | 2016-11-07 03:50 | EMERGENCY ROOM VISIT NOTE ---
History Report prepared by Tong: Maynor Michael Under the Supervision of: Dr. Neil Ortega M.D. First contact with patient: 01:10 Chief Complaint: DIARRHEA Stated Complaint: VOMITING,DIARRHEA History of Present Illness The patient is a 86 year old female who presents to the Emergency Room with complaints of persistent diarrhea beginning this morning. She took Imodium earlier today which improved her symptoms. She also complains of vomiting. The patient has vomited three times today. She denies any LOC, lightheadedness, or abdominal pain. She was seen in the ED recently with similar complaints. The patient has a history of diabetes and states that her blood sugars have been stable. She notes that her son and neighbor currently have similar symptoms. She has not had a colonoscopy before in the past. Source of History: patient Onset: This morning Quality: other (diarrhea) Timing: other (persistent) Associated Symptoms: + vomiting, No LOC, No abdominal pain Note: The patient denies any lightheadedness. Review of Systems See HPI for pertinent positives & negatives. A total of 10 systems reviewed and were otherwise negative. Past Medical & Surgical Medical Problems: (1) Diarrhea Surgical Problems: (1) H/O: hysterectomy (2) History of appendectomy Family History No pertinent family history stated. Social History Smoking Status: Never Smoker Drug Use: none Marital Status: single Occupation Status: retired Current/Historical Medications Scheduled Amlodipine (Norvasc), 5 MG PO DAILY Calcium Carbonate-Vitamin D (Calcium 600 + D), 1 TAB PO DAILY Carvedilol (Coreg), 1 TAB PO BID Ibandronate Sodium (Boniva), 1 TAB PO MONTHLY Levothyroxine Sodium (Levothyroxine Sodium), 1 TAB PO DAILY Metformin Hcl (Glucophage), 500 MG PO BID Metoprolol Tartrate (Lopressor) (Lopressor), 50 MG PO BID Multiple Vitamins W/ Minerals (Centrum Silver 50+Women), 1 TAB PO DAILY Valsartan (Diovan), 320 MG PO DAILY Allergies Coded Allergies: Sodium Hypochlorite (Verified Allergy, Unknown, Clorox, 11/07/16) Acetaminophen (Verified Adverse Reaction, Mild, NAUSEA; HEART RACES, ELEVATED TEMP, 11/07/16) Sulfa Antibiotics (Verified Adverse Reaction, Mild, Nausea, 11/07/16) Uncoded Allergies: UNCLAS THER/AG (Allergy, Unknown, ALLERGY COSMETIC PRODUCTS, 11/05/16) Physical Exam Vital Signs Date Time Temp Pulse Resp B/P (MAP) Pulse Ox O2 Delivery O2 Flow Rate FiO2 11/07/16 03:03 81 18 114/60 98 Room Air 11/07/16 01:07 36.8 87 16 105/65 95 Room Air Physical Exam GENERAL: Patient is mildly dehydrated appearing and in no acute distress. HEENT: No acute trauma, normocephalic atraumatic, mucous membranes dry, no nasal congestion, no scleral icterus. NECK: No stridor, no adenopathy, no meningismus, trachea is midline. LUNGS: No dyspnea. Clear to auscultation and equal bilaterally. No wheeze, no rhonchi. HEART: Regular rate and rhythm. No murmurs, rubs, gallops appreciated. ABDOMEN: Soft, nontender, bowel sounds positive, no masses appreciated, no peritonitis. BACK: No midline tenderness, no CVA tenderness EXTREMITIES: Normal motion all extremities, no cyanosis, no edema. NEUROLOGIC: Alert and oriented, no acute motor or sensory deficits, no focal weakness, cranial nerves grossly intact. SKIN: No rash, no jaundice, no diaphoresis. Medical Decision & Procedures Laboratory Results 11/07/16 02:09 Red Blood Count 4.41, Mean Corpuscular Volume 86.4, Mean Corpuscular Hemoglobin 30.2, Mean Corpuscular Hemoglobin Concent 34.9, Mean Platelet Volume 9.7, Neutrophils (%) (Auto) 82.3, Lymphocytes (%) (Auto) 11.0, Monocytes (%) (Auto) 4.4, Eosinophils (%) (Auto) 1.9, Basophils (%) (Auto) 0.2, Neutrophils # (Auto) 7.03, Lymphocytes # (Auto) 0.94, Monocytes # (Auto) 0.38, Eosinophils # (Auto) 0.16, Basophils # (Auto) 0.02 11/07/16 02:09 Test 11/07/16 02:09 White Blood Count 8.55 K/uL (4.8-10.8) Red Blood Count 4.41 M/uL (4.2-5.4) Hemoglobin 13.3 g/dL (12.0-16.0) Hematocrit 38.1 % (37-47) Mean Corpuscular Volume 86.4 fL (80-100) Mean Corpuscular Hemoglobin 30.2 pg (25-34) Mean Corpuscular Hemoglobin Concent 34.9 g/dl (32-36) Platelet Count 239 K/uL (130-400) Mean Platelet Volume 9.7 fL (7.4-10.4) Neutrophils (%) (Auto) 82.3 % Lymphocytes (%) (Auto) 11.0 % Monocytes (%) (Auto) 4.4 % Eosinophils (%) (Auto) 1.9 % Basophils (%) (Auto) 0.2 % Neutrophils # (Auto) 7.03 K/uL (1.4-6.5) Lymphocytes # (Auto) 0.94 K/uL (1.2-3.4) Monocytes # (Auto) 0.38 K/uL (0.11-0.59) Eosinophils # (Auto) 0.16 K/uL (0-0.5) Basophils # (Auto) 0.02 K/uL (0-0.2) RDW Standard Deviation 45.1 fL (36.4-46.3) RDW Coefficient of Variation 14.3 % (11.5-14.5) Immature Granulocyte % (Auto) 0.2 % Immature Granulocyte # (Auto) 0.02 K/uL (0.00-0.02) Anion Gap 9.0 mmol/L (3-11) Est Creatinine Clear Calc Drug Dose 29.9 ml/min Estimated GFR () 47.4 Estimated GFR (Non- 40.9 BUN/Creatinine Ratio 7.5 (10-20) Estimated Average Glucose 166 mg/dl Hemoglobin A1c 7.4 % (4.5-5.6) Calcium Level 8.5 mg/dl (8.5-10.1) Magnesium Level 1.3 mg/dl (1.8-2.4) Total Bilirubin 0.4 mg/dl (0.2-1) Direct Bilirubin 0.1 mg/dl (0-0.2) Aspartate Amino Transf (AST/SGOT) 35 U/L (15-37) Alanine Aminotransferase (ALT/SGPT) 56 U/L (12-78) Alkaline Phosphatase 119 U/L (45-117) C-Reactive Protein 1.03 mg/dl (0-0.29) Total Protein 6.7 gm/dl (6.4-8.2) Albumin 3.1 gm/dl (3.4-5.0) Lipase 868 U/L (73-393) Date/Time Source Procedure Growth Status 11/07/16 01:14 Stool C.difficile Toxin B Gene (PCR) - Final No C. difficile toxin B gene detected Complete Laboratory results as reviewed by me. Medications Administered Medications (Trade) Dose Ordered Sig/Radha Route Start Time Stop Time Status Last Admin Dose Admin Sodium Chloride 1,000 ml @ 999 mls/hr Q1H1M STAT IV 11/07/16 01:23 11/07/16 02:23 DC 11/07/16 01:23 999 MLS/HR Ondansetron HCl (Zofran Inj) 4 mg NOW STAT IV 11/07/16 01:23 11/07/16 01:24 DC 11/07/16 01:23 4 MG ED Course 0119: The patient was evaluated in room B3B. A complete history and physical exam was performed. 0123: Ordered Zofran Inj 4 mg IV, Sodium Chloride 1000 ml @ 999 mls/hr IV. 0230: The patient had an episode of uncontrollable diarrhea. 0252: Ordered Zofran Inj 4 mg IV. 0342: Upon reevaluation, the patient is resting. She has had two further episodes of uncontrolled diarrhea. Discussed results and treatment plan with the patient. She verbalized understanding and agreement with the treatment plan. The patient will be evaluated for further management. Medical Decision Differential: Viral, Bacterial, Parasitic, Iatrogenic, C-Diff, Malabsorption, Irritable Bowel Disease, IBS, Ischemic Bowel, amongst other pathologies entertained. 86 yr old female with severe diarrhea now associated with periodic vomiting. Abdominal exam benign and other than dehydrated she looks well. Unfortunately continuous diarrhea to point where unable to even control/hold her bowels. Cdiff negative. This is second time in last few days with diarrhea like this though this time now with vomiting. She is clearly unable to do this at home as she is frequently stooling on herself. Hospitalist consulted as continued diarrhea and decreasing CO2. Cr so far looking OK. With completely benign abdomen I do not feel that imaging indicated at this time. Medication Reconcilliation Current Medication List: was personally reviewed by me Blood Pressure Screening Patient's blood pressure: Normal blood pressure Blood pressure disposition: Did not require urgent referral Consults Time Called: [phone] Consulting Physician: Dr. Tiffanie Noriega Returned Call: [phone] Discussed the patient's case. The patient will be evaluated for further treatment and disposition. Impression Primary Impression: Intractable diarrhea Additional Impression: Intractable vomiting Scribe Attestation The scribe's documentation has been prepared under my direction and personally reviewed by me in its entirety. I confirm that the note above accurately reflects all work, treatment, procedures, and medical decision making performed by me. Departure Information Dispostion Being Evaluated By Hospitalist Referrals Tony Tracy M.D. (PCP) Patient Instructions My [facility] Problem Qualifiers
[2016-11-07] MEDS ORDERED: PROMETHAZINE HCL INJ 12.5 MG in SODIUM CHLORIDE 0.9% 50ML 50 ML IV PRN (04:30)
[2016-11-07] MEDS ORDERED: HYDROmorphone INJ 0.5 MG/0.5 ML SYR IV PRN (04:30)
[2016-11-07] MEDS ORDERED: TRAMADOL HCL 50 MG TAB PO PRN (04:30)
[2016-11-07] MEDS ORDERED: GLUCOSE 10 TABS/TUBE PO PRN (04:30)
[2016-11-07] MEDS ORDERED: GLUCOSE 40% GEL 15 GM TUBE PO PRN (04:30)
[2016-11-07] MEDS ORDERED: DEXTROSE 50% 50 ML SYR IV PRN (04:30)
[2016-11-07] MEDS ORDERED: GLUCAGON FOR INJ 1 MG VIAL SQ PRN (04:30)
[2016-11-07] MEDS ORDERED: ONDANSETRON INJ 2 MG/ML 2 ML VIAL IV PRN (04:30)
[2016-11-07] MEDS ORDERED: IBUPROFEN 200 MG TAB PO PRN (04:30)
[2016-11-07] MEDS ORDERED: KETOROLAC TROMETHAMINE 15 MG/ML VIAL IV. PRN (04:30)
[2016-11-07 05:11] LABS: MAGNESIUM 1.3 mg/dl (1.8-2.4)
[2016-11-07 05:30] VITALS: BP 143/62; PULSE 62; TEMP 36.8; O2SAT 94; Ht 154.9 cm; Wt 69.0 kg
[2016-11-07] MEDS ORDERED: INSULIN ASPART 100 UNITS/ML 3 ML PEN SC ONE (05:30)
[2016-11-07] MEDS ORDERED: SODIUM CHLOR 0.45% + 20MEQ KCL 1,000 ML IV ONE (05:30)
[2016-11-07] MEDS ORDERED: INSULIN GLARGINE SOLOSTAR 100 UNITS/ML 3 ML PEN SC ONE (05:30)
[2016-11-07] MEDS ORDERED: NURSING VERBAL MED ORDER ONE (06:00)
--- NOTE | 2016-11-07 06:13 | HISTORY & PHYSICAL EXAMINATION ---
DATE OF ADMISSION: 11/07/2016 PRIMARY CARE PHYSICIAN: Dr. Tracy. CHIEF COMPLAINT: Nausea, vomiting, diarrhea. HISTORY OF PRESENT ILLNESS: History obtained from the patient, family, and records. Medical history is significant for hypertension, diabetes type 2 on oral meds, hypothyroidism. Recent confinement last week for acute gastroenteritis, C. diff negative. Patient was discharged, improved yesterday. Upon returning home, px had recurrence of watery stools, nausea vomiting. No excruciating abdominal pain. Admits to sick contacts. No chestpain, no shortness of breath. As been on metformin for years without diarrhea sx. Brought to the Emergency Room. MEDICAL HISTORY: As above. SURGERIES: She has had knee surgeries, hysterectomy, oophorectomy, appendectomy. HOME MEDICATIONS: Include, levothyroxine, metformin, amlodipine, carvedilol. ALLERGIES: TO ACETAMINOPHEN, AND SULFA. FAMILY HISTORY: Hypertension. PERSONAL AND SOCIAL HISTORY: Nonsmoker, no alcohol. Retired [employer] employee. REVIEW OF SYSTEMS: As per HPI, all other ROS negative. PHYSICAL EXAMINATION: VITAL SIGNS: Blood pressure was noted to be 106/65, pulse rate 87, RR 16, temperature 36.8, sats 98 on room air. GENERAL: Noted to be pleasant, no respiratory distress, looks younger for stated age. SKIN: Normal color. HEENT: [place] palpebral conjunctivae. Dry mucosa. NECK: No JVD. Supple. CHEST: Clear to auscultation. HEART: Regular rate and rhythm. ABDOMEN: Some distention, nontender. EXTREMITIES: Minimal LE edema. No tenderness NEUROLOGIC: No gross focality. LABORATORY DATA: Hemoglobin was noted to be 13.3, white cells 9, platelets 239. Sodium 140, potassium 3.7, chloride 114, CO2 of 20, BUN 9, creatinine 1.2, glucose 225, hemoglobin A1c noted on June 2015 was 6.8. ASSESSMENT: 1. Recurrent nausea/vomiting/diarrhea rule out C. difficile No signs of systemic toxicity 2. clinical dehydration 2 to above. 3. Hypertension, stable. 4. DM2, on oral meds, well-controlled as of recent HgA1c. PLAN: Observation GMF Supportive measures for gastroenteritis. Follow repeat C. diff PT, OT eval. IV fluids. ISS, BG goal 140-180. patient due for hemoglobin A1c check. DVT prophylaxis with Lovenox subQ. Full code. Patient's daughter requesting for updates from providers. Ms. Linda Cabrera at [phone]. ADDENDUM : abn alkphos, lipase noted ? biliary disease as etio of nausea/vomiting sx check GB US MTDD
[2016-11-07 06:20] LABS: ESTIMATED AVERAGE GLUCOSE 166 mg/dl; HA1C FLAG Normal (Normal)
[2016-11-07] MEDS ORDERED: IV FLUIDS COMPLETED PRN (06:30)
[2016-11-07] MEDS: INSULIN ASPART 100 UNITS/ML 3 ML PEN SC SCH ×4 (06:30→23:27)
[2016-11-07] MEDS: LEVOTHYROXINE 112 MCG TAB PO SCH (06:34)
[2016-11-07] MEDS: LACTATED RINGER'S 1000ML 1,000 ML IV SCH ×2 (06:35→19:18)
[2016-11-07] MEDS: MAGNESIUM SULFATE 1GM / D5W 1 GM in PREMIXED IN D5W 100 ML IV SCH ×3 (06:36→09:52)
--- NOTE | 2016-11-07 06:37 | DIAGNOSTIC IMAGING REPORT ---
BILIARY ULTRASOUND CLINICAL HISTORY: nausea vomiting COMPARISON STUDY: No previous studies for comparison. FINDINGS: The pancreas appears normal as visualized. There are no focal hepatic masses. The liver is of slightly increased echogenicity. This could indicate hepatic steatosis. There is no right-sided hydronephrosis. There is mild gallbladder distention. There is a 14 mm stone within the gallbladder neck. There is a ringdown artifact consistent with adenomyomatosis. There is a positive sonographic Guerra sign. The common bile duct is mildly dilated measuring 8 mm. IMPRESSION: 1. Cholelithiasis. Mildly distended gallbladder. Positive sonographic Guerra sign. A nuclear medicine hepatobiliary study could be obtained in follow-up to assess cystic duct patency. 2. Mildly dilated common bile duct measuring 8 mm 3. Slight increase in hepatic echogenicity. This is a nonspecific finding which could indicate hepatic steatosis Electronically signed by: Tang Ayala M.D. 11/07/2016 6:36 AM Dictated Date/Time: 11/07/2016 6:33 AM
[2016-11-07] MEDS ORDERED: INSULIN ASPART 100 UNITS/ML 3 ML PEN SC SCH (07:00)
[2016-11-07 07:51] LABS: INR 1.1 (0.9-1.1); PARTIAL THROMBOPLASTIN RATIO 0.9; PROTHROMBIN TIME (PATIENT) 11.6 SECONDS (9.0-12.0)
[2016-11-07] MEDS ORDERED: AMPICILLIN/SULBACTAM CONSULT ACTIVE PRN ×2 (08:00)
[2016-11-07] MEDS ORDERED: AMPICILLIN/SULBACTAM SOD INJ 3,000 MG in SODIUM CHLORIDE 0.9% 100ML 100 ML IV ONE (08:15)
[2016-11-07] MEDS: CEROVITE ADV FORMULA TAB PO SCH (09:17)
[2016-11-07] MEDS: CARVEDILOL 12.5 MG TAB PO SCH ×2 (09:17→21:00)
[2016-11-07] MEDS: METOPROLOL TARTRATE 50 MG TAB PO SCH ×2 (09:18→21:00)
[2016-11-07] MEDS: AMLODIPINE BESYLATE 5 MG TAB PO SCH (09:18)
[2016-11-07] MEDS: ENOXAPARIN 30 MG/0.3 ML SYR SQ SCH (09:20)
[2016-11-07] MEDS: VALSARTAN 80 MG TAB PO SCH (12:15)
--- NOTE | 2016-11-07 13:11 | Surgery Consultation ---
Consultation Date of Consultation: Nov 07, 2016. Attending Physician: Patrick Duran MD Reason for Consultation: abnormal gallbladder US (Madison Hummel PA-C) History of Present Illness Yessy is a very pleasant 86 year-old female who was just recently discharged from [facility] on Saturday for nausea, vomiting, and diarrhea. She was presumed to have gastroenteritis, c.diff was negative, and was feeling better so was discharged. However she states the nausea, vomiting, and diarrhea resumed and was unable to keep anything down so she came back to emergency department. She states the pain was an aching pain in the right abdomen. Nothing seemed to make the pain worse or better. No radiation of pain. Had some associated bloating. States she was in her normal state of health prior to Saturday. Denies of any similar episodes in the past. Denies of any fever, chills, night sweats, weight loss, vomiting blood, heartburn/reflux, constipation, blood in stools, black/tarry stools, or nate colored stools. Labs during her last admission did show an elevated Lipase at 472. However no leukocytosis. Lipase normalized prior to discharge Labs on this admission showed no leukocytosis however Lipase again elevated at 868 with slightly elevated alk phos at 119. Total bilirubin, direct bilirubin, AST, and ALT wnl. Biliary ultrasound showed distended gallbladder with gallstones, gallbladder neck stone measuring 14 mm and ring effect consistent with adenomyomatosis. CBD slightly dilated at 8mm. (Madison Hummel PA-C) Past Medical/Surgical History Medical Problems: 1. Hypertension 2. DM type 2 3. Hypothyroidism Past Surgical History: 1. Appendectomy and Oophorectomy 2. Vaginal Hysterectomy 3. Cystocele and Rectocele repair 4. Bilateral knee replacement (Madison Hummel PA-C) Social History Smoking Status: Never Smoker Drug Use: none Marital Status: single Occupation Status: retired (Madison Hummel PA-C) Allergies Coded Allergies: Sodium Hypochlorite (Verified Allergy, Unknown, Clorox, 11/07/16) Acetaminophen (Verified Adverse Reaction, Mild, NAUSEA; HEART RACES, ELEVATED TEMP, 11/07/16) Sulfa Antibiotics (Verified Adverse Reaction, Mild, Nausea, 11/07/16) Uncoded Allergies: UNCLAS THER/AG (Allergy, Unknown, ALLERGY COSMETIC PRODUCTS, 11/05/16) Home Medications Scheduled Amlodipine (Norvasc), 5 MG PO DAILY Calcium Carbonate-Vitamin D (Calcium 600 + D), 1 TAB PO DAILY Carvedilol (Coreg), 1 TAB PO BID Ibandronate Sodium (Boniva), 1 TAB PO MONTHLY Levothyroxine Sodium (Levothyroxine Sodium), 1 TAB PO DAILY Metformin Hcl (Glucophage), 500 MG PO BID Metoprolol Tartrate (Lopressor) (Lopressor), 50 MG PO BID Multiple Vitamins W/ Minerals (Centrum Silver 50+Women), 1 TAB PO DAILY Valsartan (Diovan), 320 MG PO DAILY Current Inpatient Medications Current Inpatient Medications Medications (Trade) Dose Ordered Sig/Radha Route Start Time Stop Time Status Last Admin Dose Admin Enoxaparin Sodium (Lovenox Inj) 30 mg Q24H SQ 11/07/16 09:00 12/07/16 08:59 11/07/16 09:20 30 MG Glucose (Glucose 40% Gel) 15-30 GRAMS 15 GRAMS... UD PRN PO 11/07/16 04:30 12/07/16 04:29 Glucose (Glucose Chew Tab) 4-8 Tablets 4 Tabl... UD PRN PO 11/07/16 04:30 12/07/16 04:29 Dextrose (Dextrose 50% 50ML Syringe) 25-50ML OF 50% DW IV FOR... UD PRN IV 11/07/16 04:30 12/07/16 04:29 Glucagon (Glucagon Inj) 1 mg UD PRN SQ 11/07/16 04:30 12/07/16 04:29 Ondansetron HCl (Zofran Inj) 4 mg Q6H PRN IV 11/07/16 04:30 12/07/16 04:29 Promethazine HCl 12.5 mg/Sodium Chloride 50.5 ml @ 204 mls/hr Q6H PRN IV 11/07/16 04:30 12/07/16 04:29 Tramadol HCl (Ultram Tab) FOR PAIN, 25-50 MG 25 MG ... Q6H PRN PO 11/07/16 04:30 12/07/16 04:29 Hydromorphone HCl (Dilaudid Inj) 0.5 mg Q3H PRN IV 11/07/16 04:30 11/21/16 04:29 Ibuprofen (Advil Tab) 200 mg Q6H PRN PO 11/07/16 04:30 12/07/16 04:29 Amlodipine Besylate (Norvasc Tab) 5 mg DAILY PO 11/07/16 09:00 12/07/16 08:59 11/07/16 09:18 5 MG Carvedilol (Coreg Tab) 12.5 mg BID PO 11/07/16 09:00 12/07/16 08:59 11/07/16 09:17 12.5 MG Levothyroxine Sodium (Synthroid Tab) 112 mcg DAILYBB PO 11/07/16 06:00 12/07/16 05:59 11/07/16 06:34 112 MCG Metoprolol Tartrate (Lopressor Tab) 50 mg BID PO 11/07/16 09:00 12/07/16 08:59 11/07/16 09:18 50 MG Multivitamins/ Minerals (Multivitamin W/ Minerals Tab) 1 tab DAILY PO 11/07/16 09:00 12/07/16 08:59 11/07/16 09:17 1 TAB Valsartan (Diovan Tab) 320 mg DAILY PO 11/07/16 12:00 12/07/16 11:59 11/07/16 12:15 320 MG Ketorolac Tromethamine (Toradol Inj) 15 mg Q6H PRN IV. 11/07/16 04:30 11/12/16 04:29 Lactated Ringer's 1,000 ml @ 75 mls/hr [id number] IV 11/07/16 05:45 12/07/16 05:44 11/07/16 06:35 75 MLS/HR Insulin Aspart (novoLOG ASPART) SLIDING SCALE If C... Q6 SC 11/07/16 06:30 12/07/16 06:29 Miscellaneous (Iv Fluids Completed) 1 ea PRN PRN N/A 11/07/16 06:30 11/07/17 06:29 Ampicillin Sodium/ Sulbactam Sodium (Consult) 1 ea UD PRN N/A 11/07/16 08:00 12/07/16 07:59 Insulin Glargine (Lantus Solostar Pen) 5 units DAILY SC 11/08/16 09:00 12/08/16 08:59 Ampicillin Sodium/ Sulbactam Sodium 1500 mg/Sodium Chloride 104 ml @ 208 mls/hr Q6H IV 11/07/16 14:00 11/17/16 13:59 (Madison Hummel PA-C) Review of Systems Constitutional: No fever, No chills, No sweats, No weight loss Respiratory: No shortness of breath Cardiovascular: No chest pain Abdomen: + pain, + nausea, + vomiting, + diarrhea, No constipation, No GI bleeding Genitourinary - Female: No dysuria Integumentary: No rash, No itch (Madison Hummel PA-C) Physical Exam Date Time Temp Pulse Resp B/P (MAP) Pulse Ox O2 Delivery O2 Flow Rate FiO2 11/07/16 05:30 36.8 62 18 143/62 94 Room Air 11/07/16 04:46 57 18 118/56 93 Room Air 11/07/16 03:03 81 18 114/60 98 Room Air 11/07/16 01:07 36.8 87 16 105/65 95 Room Air General Appearance: WD/WN, no apparent distress Head: normocephalic, atraumatic Eyes: sclerae normal ENT: hearing grossly normal Neck: trachea midline Respiratory/Chest: lungs clear, normal breath sounds, no respiratory distress, no accessory muscle use Cardiovascular: regular rate, rhythm, no murmur Abdomen/GI: normal bowel sounds, soft, no organomegaly, no pulsatile mass, + tenderness (RUQ, positive Guerra's sign, no distention, no rigidity, or peritonitis) Back: normal inspection Extremities/Musculoskelatal: normal inspection Neurologic/Psych: alert, normal mood/affect, oriented x 3 Skin: normal color, warm/dry, no rash (Madison Hummel PA-C) Laboratory Results Last 24 Hours Test 11/07/16 02:09 11/07/16 06:24 11/07/16 07:10 White Blood Count 8.55 K/uL Red Blood Count 4.41 M/uL Hemoglobin 13.3 g/dL Hematocrit 38.1 % Mean Corpuscular Volume 86.4 fL Mean Corpuscular Hemoglobin 30.2 pg Mean Corpuscular Hemoglobin Concent 34.9 g/dl Platelet Count 239 K/uL Mean Platelet Volume 9.7 fL Neutrophils (%) (Auto) 82.3 % Lymphocytes (%) (Auto) 11.0 % Monocytes (%) (Auto) 4.4 % Eosinophils (%) (Auto) 1.9 % Basophils (%) (Auto) 0.2 % Neutrophils # (Auto) 7.03 K/uL Lymphocytes # (Auto) 0.94 K/uL Monocytes # (Auto) 0.38 K/uL Eosinophils # (Auto) 0.16 K/uL Basophils # (Auto) 0.02 K/uL RDW Standard Deviation 45.1 fL RDW Coefficient of Variation 14.3 % Immature Granulocyte % (Auto) 0.2 % Immature Granulocyte # (Auto) 0.02 K/uL Sodium Level 143 mmol/L Potassium Level 3.7 mmol/L Chloride Level 114 mmol/L Carbon Dioxide Level 20 mmol/L Anion Gap 9.0 mmol/L Blood Urea Nitrogen 9 mg/dl Creatinine 1.20 mg/dl Est Creatinine Clear Calc Drug Dose 29.9 ml/min Estimated GFR () 47.4 Estimated GFR (Non- 40.9 BUN/Creatinine Ratio 7.5 Random Glucose 225 mg/dl Estimated Average Glucose 166 mg/dl Hemoglobin A1c 7.4 % Calcium Level 8.5 mg/dl Magnesium Level 1.3 mg/dl Total Bilirubin 0.4 mg/dl Direct Bilirubin 0.1 mg/dl Aspartate Amino Transf (AST/SGOT) 35 U/L Alanine Aminotransferase (ALT/SGPT) 56 U/L Alkaline Phosphatase 119 U/L C-Reactive Protein 1.03 mg/dl Total Protein 6.7 gm/dl Albumin 3.1 gm/dl Lipase 868 U/L Bedside Glucose 112 mg/dl Prothrombin Time 11.6 SECONDS Prothromb Time International Ratio 1.1 Activated Partial Thromboplast Time 23.6 SECONDS Partial Thromboplastin Ratio 0.9 BILIARY ULTRASOUND CLINICAL HISTORY: nausea vomiting COMPARISON STUDY: No previous studies for comparison. FINDINGS: The pancreas appears normal as visualized. There are no focal hepatic masses. The liver is of slightly increased echogenicity. This could indicate hepatic steatosis. There is no right-sided hydronephrosis. There is mild gallbladder distention. There is a 14 mm stone within the gallbladder neck. There is a ringdown artifact consistent with adenomyomatosis. There is a positive sonographic Guerra sign. The common bile duct is mildly dilated measuring 8 mm. IMPRESSION: 1. Cholelithiasis. Mildly distended gallbladder. Positive sonographic Guerra sign. A nuclear medicine hepatobiliary study could be obtained in follow-up to assess cystic duct patency. 2. Mildly dilated common bile duct measuring 8 mm 3. Slight increase in hepatic echogenicity. This is a nonspecific finding which could indicate hepatic steatosis (Madison Hummel ., PA-C) Assessment & Plan 86 year-old female with persistent nausea, vomiting, diarrhea with RUQ abdominal pain. Originally felt to have gastroenteritis however presented with worsening symptoms and elevated lipase. Biliary ultrasound showing distended gallbladder with gallstones, gallbladder neck stone measuring 14 mm, and dilated CBD at 8 mm. Lipase elevated at 868 on admission. No leukocytosis and afebrile. Plan: Plan to obtain HIDA scan to rule out biliary obstruction, acute cholecystits, or any obstruction of biliary ductal system Continue NPO except meds Continue IV fluids, IV pain management as needed, IV Zofran as needed Continue current medical management Will determine further treatment once HIDA scan results are back. (Madison Hummel ., PA-C) I interviewed and examined this patient and reviewed the labs and radiology studies and I agree with the above note. Patient admitted with diarrhea but noted to have increased lipase again. Has tenderness in the upper abdomen. HIDA showed delayed filling of the gallbladder. Will follow clinical coarse. (Rikki Cross M.D.)
[2016-11-07] MEDS ORDERED: MoRPHine SULFATE 2 MG/ML CARP ONE (15:57)
--- NOTE | 2016-11-07 17:19 | DIAGNOSTIC IMAGING REPORT ---
NUCLEAR MEDICINE HEPATOBILIARY SCAN CLINICAL HISTORY: Cholelithiasis. COMPARISON: Right upper quadrant ultrasound October. TECHNIQUE: 5.1 mCi of technetium 99m Choletec IV was injected at 2:20 PM on November 07, 2016. Immediately following injection, imaging of the abdomen was carried out for 60 minutes in the anterior projection. Gallbladder activity was not identified at 60 minutes and therefore 2 mg of morphine was administered IV. FINDINGS: Hepatic uptake of radiotracer is prompt and homogeneous. Radiotracer was not identified within the gallbladder at 60 minutes. Morphine was administered. Gallbladder radiotracer was identified 120 minutes following radiotracer administration. IMPRESSION: Delayed visualization of gallbladder radiotracer with gallbladder radiotracer identified following morphine administration. This suggests chronic cholecystitis. Electronically signed by: Morales Fried M.D. 11/07/2016 5:18 PM Dictated Date/Time: 11/07/2016 5:09 PM
[2016-11-07] MEDS: AMPICILLIN/SULBACTAM SOD INJ 1,500 MG in SODIUM CHLORIDE 0.9% 100ML 100 ML IV SCH ×2 (17:35→23:24)
--- NOTE | 2016-11-07 17:42 | Progress Note ---
Internal Med Progress Note Date of Service: Nov 07, 2016. Provider Documentation: SUBJECTIVE: resting comfortably now. feeling better now. afebrile. has some RUQ abdominal pain. Diarrhea is better.Gall stones and distended bladder on ultrasound. HIDA scan chronic cholecystitis. on iv Unasyn, fluids. Surgery on board. Possible cholecystectomy . ASSESSMENT & PLAN: [] DVT PROPHYLAXIS [] DISPOSITION [] Vital Signs: Date Time Temp Pulse Resp B/P (MAP) Pulse Ox O2 Delivery O2 Flow Rate FiO2 11/07/16 07:25 Room Air 11/07/16 05:30 36.8 62 18 143/62 94 Room Air 11/07/16 04:46 57 18 118/56 93 Room Air 11/07/16 03:03 81 18 114/60 98 Room Air 11/07/16 01:07 36.8 87 16 105/65 95 Room Air Lab Results: Results Past 24 Hours Test 11/07/16 02:09 11/07/16 06:24 11/07/16 07:10 11/07/16 12:31 Range/Units White Blood Count 8.55 4.8-10.8 K/uL Red Blood Count 4.41 4.2-5.4 M/uL Hemoglobin 13.3 12.0-16.0 g/dL Hematocrit 38.1 37-47 % Mean Corpuscular Volume 86.4 80-100 fL Mean Corpuscular Hemoglobin 30.2 25-34 pg Mean Corpuscular Hemoglobin Concent 34.9 32-36 g/dl Platelet Count 239 130-400 K/uL Mean Platelet Volume 9.7 7.4-10.4 fL Neutrophils (%) (Auto) 82.3 % Lymphocytes (%) (Auto) 11.0 % Monocytes (%) (Auto) 4.4 % Eosinophils (%) (Auto) 1.9 % Basophils (%) (Auto) 0.2 % Neutrophils # (Auto) 7.03 1.4-6.5 K/uL Lymphocytes # (Auto) 0.94 1.2-3.4 K/uL Monocytes # (Auto) 0.38 0.11-0.59 K/uL Eosinophils # (Auto) 0.16 0-0.5 K/uL Basophils # (Auto) 0.02 0-0.2 K/uL RDW Standard Deviation 45.1 36.4-46.3 fL RDW Coefficient of Variation 14.3 11.5-14.5 % Immature Granulocyte % (Auto) 0.2 % Immature Granulocyte # (Auto) 0.02 0.00-0.02 K/uL Sodium Level 143 136-145 mmol/L Potassium Level 3.7 3.5-5.1 mmol/L Chloride Level 114 98-107 mmol/L Carbon Dioxide Level 20 21-32 mmol/L Anion Gap 9.0 3-11 mmol/L Blood Urea Nitrogen 9 7-18 mg/dl Creatinine 1.20 0.60-1.20 mg/dl Est Creatinine Clear Calc Drug Dose 29.9 ml/min Estimated GFR () 47.4 Estimated GFR (Non- 40.9 BUN/Creatinine Ratio 7.5 10-20 Random Glucose 225 70-99 mg/dl Estimated Average Glucose 166 mg/dl Hemoglobin A1c 7.4 4.5-5.6 % Calcium Level 8.5 8.5-10.1 mg/dl Magnesium Level 1.3 1.8-2.4 mg/dl Total Bilirubin 0.4 0.2-1 mg/dl Direct Bilirubin 0.1 0-0.2 mg/dl Aspartate Amino Transf (AST/SGOT) 35 15-37 U/L Alanine Aminotransferase (ALT/SGPT) 56 12-78 U/L Alkaline Phosphatase 119 45-117 U/L C-Reactive Protein 1.03 0-0.29 mg/dl Total Protein 6.7 6.4-8.2 gm/dl Albumin 3.1 3.4-5.0 gm/dl Lipase 868 73-393 U/L Bedside Glucose 112 132 70-90 mg/dl Prothrombin Time 11.6 9.0-12.0 SECONDS Prothromb Time International Ratio 1.1 0.9-1.1 Activated Partial Thromboplast Time 23.6 21.0-31.0 SECONDS Partial Thromboplastin Ratio 0.9 Microbiology Results 11/07/16 C.difficile Toxin B Gene (PCR) - Final, Complete No C. difficile toxin B gene detected
[2016-11-07 21:10] VITALS: BP 129/65; PULSE 56
[2016-11-07 23:13] VITALS: BP 150/71; PULSE 57; TEMP 36.6; O2SAT 94
[2016-11-08] MEDS: LEVOTHYROXINE 112 MCG TAB PO SCH (05:33)
[2016-11-08] MEDS: AMPICILLIN/SULBACTAM SOD INJ 1,500 MG in SODIUM CHLORIDE 0.9% 100ML 100 ML IV SCH ×4 (05:34→23:15)
[2016-11-08] MEDS: INSULIN ASPART 100 UNITS/ML 3 ML PEN SC SCH ×3 (05:59→18:00)
[2016-11-08 07:03] LABS: BASO % 0.5 %; BASO ABS # 0.03 K/uL (0-0.2); COMPLETE YES; EOS % 10.5 %; HEMATOCRIT 35.4 % (37-47); IG% 0.2 %; LYMPH % 23.2 %; LYMPH ABS # 1.28 K/uL (1.2-3.4); MEAN CELL VOLUME 88.1 fL (80-100); MEAN CORPUSCULAR HEMOGLOBIN 29.1 pg (25-34); MEAN CORPUSCULAR HGB CONC 33.1 g/dl (32-36); MEAN PLATELET VOLUME 9.5 fL (7.4-10.4); MONO % 8.2 %; NEUT % 57.4 %; PLATELET COUNT 207 K/uL (130-400); RED BLOOD COUNT 4.02 M/uL (4.2-5.4); WHITE BLOOD COUNT 5.51 K/uL (4.8-10.8)
[2016-11-08 07:36] VITALS: BP 150/72; PULSE 60; TEMP 36.6; O2SAT 92
[2016-11-08 07:50] LABS: CALCIUM 8.6 mg/dl (8.5-10.1); CREATININE 0.72 mg/dl (0.60-1.20)
[2016-11-08 07:51] LABS: BUN/CREATININE RATIO 7.1 (10-20); POTASSIUM 3.6 mmol/L (3.5-5.1)
[2016-11-08] MEDS ORDERED: INSULIN GLARGINE SOLOSTAR 100 UNITS/ML 3 ML PEN SC SCH (09:00)
--- NOTE | 2016-11-08 09:33 | Surgery Progress Note ---
Surgery Progress Note Date of Service Nov 08, 2016. Subjective Post OP Day: HD # 1 + feeling well, + bowel movement, No nausea, No vomiting Feeling better today Still having right upper abdominal tenderness when pressed on but no pain Objective Vital Signs: Date Time Temp Pulse Resp B/P (MAP) Pulse Ox O2 Delivery O2 Flow Rate FiO2 11/08/16 07:36 36.6 60 17 150/72 (98) 92 Room Air 11/07/16 23:13 36.6 57 18 150/71 (97) 94 Room Air 11/07/16 21:10 56 129/65 (86) 11/07/16 19:15 Room Air 11/07/16 17:30 Room Air General Appearance: WD/WN, no apparent distress Head: normocephalic, atraumatic Neck: trachea midline Respiratory/Chest: no respiratory distress, no accessory muscle use Abdomen: non distended, soft, + tenderness (RUQ tenderness on light and deep palpation, improved compared to last evening) Laboratory Results: Results Past 24 Hours Test 11/07/16 12:31 11/07/16 17:07 11/07/16 23:27 11/08/16 05:58 Range/Units Bedside Glucose 132 110 142 119 70-90 mg/dl Test 11/08/16 06:30 Range/Units White Blood Count 5.51 4.8-10.8 K/uL Red Blood Count 4.02 4.2-5.4 M/uL Hemoglobin 11.7 12.0-16.0 g/dL Hematocrit 35.4 37-47 % Mean Corpuscular Volume 88.1 80-100 fL Mean Corpuscular Hemoglobin 29.1 25-34 pg Mean Corpuscular Hemoglobin Concent 33.1 32-36 g/dl Platelet Count 207 130-400 K/uL Mean Platelet Volume 9.5 7.4-10.4 fL Neutrophils (%) (Auto) 57.4 % Lymphocytes (%) (Auto) 23.2 % Monocytes (%) (Auto) 8.2 % Eosinophils (%) (Auto) 10.5 % Basophils (%) (Auto) 0.5 % Neutrophils # (Auto) 3.16 1.4-6.5 K/uL Lymphocytes # (Auto) 1.28 1.2-3.4 K/uL Monocytes # (Auto) 0.45 0.11-0.59 K/uL Eosinophils # (Auto) 0.58 0-0.5 K/uL Basophils # (Auto) 0.03 0-0.2 K/uL RDW Standard Deviation 46.9 36.4-46.3 fL RDW Coefficient of Variation 14.6 11.5-14.5 % Immature Granulocyte % (Auto) 0.2 % Immature Granulocyte # (Auto) 0.01 0.00-0.02 K/uL Sodium Level 143 136-145 mmol/L Potassium Level 3.6 3.5-5.1 mmol/L Chloride Level 114 98-107 mmol/L Carbon Dioxide Level 24 21-32 mmol/L Anion Gap 5.0 3-11 mmol/L Blood Urea Nitrogen 5 7-18 mg/dl Creatinine 0.72 0.60-1.20 mg/dl Est Creatinine Clear Calc Drug Dose 49.8 ml/min Estimated GFR () 87.9 Estimated GFR (Non- 75.8 BUN/Creatinine Ratio 7.1 10-20 Random Glucose 111 70-99 mg/dl Calcium Level 8.6 8.5-10.1 mg/dl Magnesium Level 1.8 1.8-2.4 mg/dl Lipase 95 73-393 U/L Assessment & Plan 86 year-old female with RUQ abdominal pain, Cholelithiasis, and findings on HIDA scan of chronic cholecystitis. Pain improving and only tender on palpation. Afebrile and no leukocytosis. Nausea and vomiting has resolved. HIDA scan showing no obstruction. Lipase has return to normal limits today at 95 (868 on admission) Plan: May have clear liquids today and then NPO after midnight Continue IV fluids and IV antibiotics Continue pain management as needed Continue current medical management Will continue to follow Dr. Cross has seen and examined patient, agrees with above.
[2016-11-08] MEDS: LACTATED RINGER'S 1000ML 1,000 ML IV SCH ×2 (09:53→20:49)
[2016-11-08] MEDS: CARVEDILOL 12.5 MG TAB PO SCH ×2 (09:53→20:48)
[2016-11-08] MEDS: CEROVITE ADV FORMULA TAB PO SCH (09:53)
[2016-11-08] MEDS: METOPROLOL TARTRATE 50 MG TAB PO SCH ×2 (09:54→20:48)
[2016-11-08] MEDS: VALSARTAN 80 MG TAB PO SCH (09:54)
[2016-11-08] MEDS: AMLODIPINE BESYLATE 5 MG TAB PO SCH (09:54)
[2016-11-08] MEDS: ENOXAPARIN 30 MG/0.3 ML SYR SQ SCH (09:55)
[2016-11-08] MEDS: INSULIN GLARGINE SOLOSTAR 100 UNITS/ML 3 ML PEN SC SCH ×2 (09:58→10:05)
--- NOTE | 2016-11-08 13:23 | Clinical Documentation Query ---
CLINICAL DOCUMENTATION QUERY Dr. DE LA CRUZ, In your clinical opinion is this patient being managed for: ( ) mild Acute kidney injury on CKD stage III ( ) Not Agree ( ) Other explanation of clinical findings (Please Explain) ( ) Unable to determine (Please Define) ( ) Need to Discuss The medical record reflects the following clinical findings, treatment, and risk factors. Clinical Indicators: 86 yo female presenting with persistent diarrhea and vomiting.ER describes pt as appearing mildly dehydrated. Had recently just been discharge from brief hospital stay with acute gastroenteritis. Initial Cr 1.2 which has trended down to Cr 0.72, GFR was 40.9. Review of Cr showed baseline Cr range of 0.72-0.87 and a GFR of 60.3-75.8. Treatment: 1L NSS bolus then continuous fluids, serial PRP's, treat/manage comorbid diseases Risk Factors: age, vomiting/diarrhea, dehydration, HTN, DM II. Please clarify and document your clinical opinion in the progress notes and discharge summary. Terms such as "probable", "suspected", "likely", "questionable", "possible", or "still to be ruled out" are acceptable. IF IN AGREEMENT, YOU MUST DOCUMENT ABOVE DIAGNOSTIC STATEMENT IN DAILY PROGRESS NOTES AND DISCHARGE SUMMARY. This document is not part of the patient's record. Thank You, Lucía Johnson RN [phone]
[2016-11-08 15:05] VITALS: BP 139/62; PULSE 73; TEMP 36.8; O2SAT 95
--- NOTE | 2016-11-08 16:05 | Progress Note ---
Internal Med Progress Note Date of Service: Nov 08, 2016. Provider Documentation: SUBJECTIVE: tolerating clears abdominal pain and nausea resolved still has loose stools afebrile no sob awaiting surgery tomorrow. Exam: General-alert and oriented. Not in distress ENT-normal hearing Neck-no neck masses Lungs-cta b/l no wheezing no crackles present Heart-s1 and s2 heard regular rhythm, no murmurs Abdomen-soft bowel sounds present non tender no distension Extremities no edema present no erythema Neuro-alert and oriented moves extremities ASSESSMENT & PLAN: 1. Recurrent nausea/vomiting/diarrhea c diff negative elevated lipase which is normalized Gall bladder US shows distended gall bladder and gall stones HIDA scan consistent with chronic cholecystitis on iv fluis and iv abx surgery on board-possible surgery in am 2. clinical dehydration 2 to above.on fluids. 3. Hypertension, stable on home Meds 4. DM2, oral meds on hold 'on iss will monitor. DVT PROPHYLAXIS Lovenox DISPOSITION to be determined expect to d/c home and f/u with pcp Vital Signs: Date Time Temp Pulse Resp B/P (MAP) Pulse Ox O2 Delivery O2 Flow Rate FiO2 11/08/16 15:05 36.8 73 18 139/62 (87) 95 Room Air 11/08/16 10:28 Room Air 11/08/16 07:36 36.6 60 17 150/72 (98) 92 Room Air 11/07/16 23:13 36.6 57 18 150/71 (97) 94 Room Air 11/07/16 21:10 56 129/65 (86) 11/07/16 19:15 Room Air 11/07/16 17:30 Room Air Lab Results: Results Past 24 Hours Test 11/07/16 17:07 11/07/16 23:27 11/08/16 05:58 11/08/16 06:30 Range/Units Bedside Glucose 110 142 119 70-90 mg/dl White Blood Count 5.51 4.8-10.8 K/uL Red Blood Count 4.02 4.2-5.4 M/uL Hemoglobin 11.7 12.0-16.0 g/dL Hematocrit 35.4 37-47 % Mean Corpuscular Volume 88.1 80-100 fL Mean Corpuscular Hemoglobin 29.1 25-34 pg Mean Corpuscular Hemoglobin Concent 33.1 32-36 g/dl Platelet Count 207 130-400 K/uL Mean Platelet Volume 9.5 7.4-10.4 fL Neutrophils (%) (Auto) 57.4 % Lymphocytes (%) (Auto) 23.2 % Monocytes (%) (Auto) 8.2 % Eosinophils (%) (Auto) 10.5 % Basophils (%) (Auto) 0.5 % Neutrophils # (Auto) 3.16 1.4-6.5 K/uL Lymphocytes # (Auto) 1.28 1.2-3.4 K/uL Monocytes # (Auto) 0.45 0.11-0.59 K/uL Eosinophils # (Auto) 0.58 0-0.5 K/uL Basophils # (Auto) 0.03 0-0.2 K/uL RDW Standard Deviation 46.9 36.4-46.3 fL RDW Coefficient of Variation 14.6 11.5-14.5 % Immature Granulocyte % (Auto) 0.2 % Immature Granulocyte # (Auto) 0.01 0.00-0.02 K/uL Sodium Level 143 136-145 mmol/L Potassium Level 3.6 3.5-5.1 mmol/L Chloride Level 114 98-107 mmol/L Carbon Dioxide Level 24 21-32 mmol/L Anion Gap 5.0 3-11 mmol/L Blood Urea Nitrogen 5 7-18 mg/dl Creatinine 0.72 0.60-1.20 mg/dl Est Creatinine Clear Calc Drug Dose 49.8 ml/min Estimated GFR () 87.9 Estimated GFR (Non- 75.8 BUN/Creatinine Ratio 7.1 10-20 Random Glucose 111 70-99 mg/dl Calcium Level 8.6 8.5-10.1 mg/dl Magnesium Level 1.8 1.8-2.4 mg/dl Lipase 95 73-393 U/L Test 11/08/16 11:54 Range/Units Bedside Glucose 131 70-90 mg/dl
[2016-11-08 20:46] VITALS: BP 170/80; PULSE 70
[2016-11-08 22:54] VITALS: BP 163/78; PULSE 60; TEMP 37.3; O2SAT 93
[2016-11-09] MEDS: AMPICILLIN/SULBACTAM SOD INJ 1,500 MG in SODIUM CHLORIDE 0.9% 100ML 100 ML IV SCH ×3 (05:33→16:49)
[2016-11-09] MEDS: LEVOTHYROXINE 112 MCG TAB PO SCH (05:36)
[2016-11-09] MEDS: INSULIN ASPART 100 UNITS/ML 3 ML PEN SC SCH ×4 (05:38→15:58)
[2016-11-09 07:08] VITALS: BP 166/72; PULSE 59; TEMP 37; O2SAT 91
[2016-11-09] MEDS ORDERED: NURSING VERBAL MED ORDER ONE ×2 (08:45→09:45)
[2016-11-09] MEDS: ENOXAPARIN 30 MG/0.3 ML SYR SQ SCH (09:00)
[2016-11-09] MEDS: VALSARTAN 80 MG TAB PO SCH (09:01)
[2016-11-09] MEDS: INSULIN GLARGINE SOLOSTAR 100 UNITS/ML 3 ML PEN SC SCH (09:03)
[2016-11-09] MEDS: METOPROLOL TARTRATE 50 MG TAB PO SCH (09:04)
[2016-11-09] MEDS: CARVEDILOL 12.5 MG TAB PO SCH (09:04)
[2016-11-09] MEDS: CEROVITE ADV FORMULA TAB PO SCH (09:04)
[2016-11-09] MEDS: AMLODIPINE BESYLATE 5 MG TAB PO SCH (09:05)
--- NOTE | 2016-11-09 12:18 | Surgery Progress Note ---
Surgery Progress Note Date of Service Nov 09, 2016. Subjective Post OP Day: HD # 2 + feeling well, + pain controlled, No complaints, No nausea, No vomiting Having no abdominal pain "Feeling really well" No nausea or vomiting Objective Vital Signs: Date Time Temp Pulse Resp B/P (MAP) Pulse Ox O2 Delivery O2 Flow Rate FiO2 11/09/16 08:00 Room Air 11/09/16 07:08 37.0 59 17 166/72 (103) 91 Room Air 11/08/16 23:15 Room Air 11/08/16 22:54 37.3 60 17 163/78 (106) 93 Room Air 11/08/16 20:46 70 170/80 (110) 11/08/16 16:00 Room Air 11/08/16 15:05 36.8 73 18 139/62 (87) 95 Room Air General Appearance: WD/WN, no apparent distress Head: normocephalic, atraumatic Neck: trachea midline Respiratory/Chest: no respiratory distress, no accessory muscle use Abdomen: non tender, non distended, soft, no organomegaly Laboratory Results: Results Past 24 Hours Test 11/08/16 17:06 11/08/16 20:09 11/09/16 01:33 11/09/16 05:37 Range/Units Bedside Glucose 129 220 128 131 70-90 mg/dl Assessment & Plan 86 year-old female with RUQ abdominal pain, Cholelithiasis, and findings on HIDA scan of chronic cholecystitis. Pain resolved and abdomen examination benign without any RUQ tenderness. Afebrile and no leukocytosis. Nausea and vomiting has resolved. HIDA scan showing no obstruction. Lipase has return to normal limits. Plan: May have clear liquids and then advance diet as tolerated No acute surgical intervention required, recommend patient to follow-up with Dr. Cross in a few weeks to discuss outpatient Cholecystectomy Recommend to avoid fatty/greasy foods in the meantime Continue current medical management Okay to discharge from surgical standpoint, our services signing off Dr. Cross has seen and examined patient, agrees with above.
[2016-11-09 14:59] VITALS: BP 168/80; PULSE 67; TEMP 36.9; O2SAT 97
[2016-11-09 16:00] VITALS: BP 168/80; PULSE 67; TEMP 36.9; O2SAT 97
--- NOTE | 2016-11-09 16:21 | Progress Note ---
Internal Med Progress Note Date of Service: Nov 09, 2016. Provider Documentation: SUBJECTIVE: tolerating clears sitting on the chair comforgtably afebrile no surgery today plan for d/c today Exam: General-alert and oriented. Not in distress ENT-normal hearing Neck-no neck masses Lungs-cta b/l no wheezing no crackles present Heart-s1 and s2 heard regular rhythm, no murmurs Abdomen-soft bowel sounds present non tender no distension Extremities no edema present no erythema Neuro-alert and oriented moves extremities ASSESSMENT & PLAN: 1. Recurrent nausea/vomiting/diarrhea c diff negative elevated lipase which is normalized Gall bladder US shows distended gall bladder and gall stones HIDA scan consistent with chronic cholecystitis on iv fluis and iv abx surgery on board- to /u as out patient to discuss about surgery advancing to low fiber diet and if tolerates will d/c home today 2. clinical dehydration 2 to above.on fluids. 3.URSULA on ckd stage 3 resolved now 4. Hypertension, stable on home Meds 5. DM2, oral meds on hold 'on iss will monitor. DVT PROPHYLAXIS Lovenox DISPOSITION possible d/c home today Vital Signs: Date Time Temp Pulse Resp B/P (MAP) Pulse Ox O2 Delivery O2 Flow Rate FiO2 11/09/16 16:00 36.9 67 18 97 Room Air 11/09/16 14:59 36.9 67 18 168/80 (109) 97 Room Air 11/09/16 08:00 Room Air 11/09/16 07:08 37.0 59 17 166/72 (103) 91 Room Air 11/08/16 23:15 Room Air 11/08/16 22:54 37.3 60 17 163/78 (106) 93 Room Air 11/08/16 20:46 70 170/80 (110) Lab Results: Results Past 24 Hours Test 11/08/16 17:06 11/08/16 20:09 11/09/16 01:33 11/09/16 05:37 Range/Units Bedside Glucose 129 220 128 131 70-90 mg/dl Test 11/09/16 11:53 Range/Units Bedside Glucose 149 70-90 mg/dl
[2016-11-09] MEDS ORDERED: LCTX PO (17:18)
[2016-11-09] MEDS ORDERED: AMOX500T PO (17:18)
--- NOTE | 2016-11-09 17:20 | Discharge Instructions ---
Discharge Instructions Date of Service Nov 09, 2016. Admission Reason for Admission: Diarrhea Discharge Discharge Diagnosis / Problem: diarrhea. chronic cholecystitis Discharge Goals Goal(s): Decrease discomfort Activity Recommendations Activity Limitations: resume your previous activity . Instructions / Follow-Up Instructions / Follow-Up FOLLOWUP WITH FAMILY DOCTOR IN ONE WEEK FOLLOWUP WITH SURGERY DR.MARK SOLOMON ON ONE WEEK TO DISCUSS ABOUT SURGERY. ( [address], [place] [id number] ) Current Hospital Diet Patient's current hospital diet: Regular Diet, Low Fiber Diet Discharge Diet Recommended Diet: AHA Diet (Heart Healthy) Pending Studies Studies pending at discharge: no Laboratory Results Hemoglobin A1c Test 11/07/16 02:09 Range/Units Estimated Average Glucose 166 mg/dl Hemoglobin A1c 7.4 H 4.5-5.6 % Medical Emergencies . Who to Call and When: Medical Emergencies: If at any time you feel your situation is an emergency, please call 911 immediately. . Non-Emergent Contact Non-Emergency issues call your: Primary Care Provider . . "Provider Documentation" section prepared by Patrick Duran. . VTE Core Measure Inpt VTE Proph given/why not?: Enoxaparin (Lovenox)SQ
--- NOTE | 2016-11-09 18:40 | Discharge Summary ---
Discharge Summary Date of Service Nov 09, 2016. Discharge Summary Admission Date: Nov 07, 2016 at 10:41 Discharge Date: Nov 09, 2016 Discharge Disposition: Home Principal Diagnosis: DIARRHEA CHRONIC CHOLECYSTITIS Secondary Diagnoses/Problems: hypertension, diabetes type 2 on oral meds, hypothyroidism. Procedures: GALL BLADDER US: 1. Cholelithiasis. Mildly distended gallbladder. Positive sonographic Guerra sign. A nuclear medicine hepatobiliary study could be obtained in follow-up to assess cystic duct patency. 2. Mildly dilated common bile duct measuring 8 mm 3. Slight increase in hepatic echogenicity. This is a nonspecific finding which could indicate hepatic steatosis HIDA SCAN: Delayed visualization of gallbladder radiotracer with gallbladder radiotracer identified following morphine administration. This suggests chronic cholecystitis. Consultations: SURGERY Medication Reconciliation New Medications: Amoxicillin & Pot Clavulanate (Augmentin 500MG) 1 Tab Tab 500 MG PO BID for 5 Days, TAB Lactobacillus Acidophilus (Lactinex) Tab 2 TAB PO BID for 7 Days, TAB Continued Medications: Amlodipine (Norvasc) 5 Mg Tab 5 MG PO DAILY, TAB Calcium Carbonate-Vitamin D (Calcium 600 + D) 1 Tab Tab 1 TAB PO DAILY Carvedilol (Coreg) 12.5 Mg Tab 1 TAB PO BID, TAB Ibandronate Sodium (Boniva) 150 Mg Tab 1 TAB PO MONTHLY, TAB Levothyroxine Sodium (Levothyroxine Sodium) 112 Mcg Tab 1 TAB PO DAILY, TAB Metformin Hcl (Glucophage) 500 Mg Tab 500 MG PO BID, TAB Metoprolol Tartrate (Lopressor) (Lopressor) 50 Mg Tab 50 MG PO BID, TAB Multiple Vitamins W/ Minerals (Centrum Silver 50+Women) 1 Tab Tab 1 TAB PO DAILY Valsartan (Diovan) 320 Mg Tab 320 MG PO DAILY, TAB Admission Information HPI (per Admitting provider): History obtained from the patient, family, and records. Medical history is significant for hypertension, diabetes type 2 on oral meds, hypothyroidism. Recent confinement last week for acute gastroenteritis, C. diff negative. Patient was discharged, improved yesterday. Upon returning home, px had recurrence of watery stools, nausea vomiting. No excruciating abdominal pain. Admits to sick contacts. No chestpain, no shortness of breath. As been on metformin for years without diarrhea sx. Brought to the Emergency Room. Physical Exam (per Admitting): VITAL SIGNS: Blood pressure was noted to be 106/65, pulse rate 87, RR 16, temperature 36.8, sats 98 on room air. GENERAL: Noted to be pleasant, no respiratory distress, looks younger for stated age. SKIN: Normal color. HEENT: [place] palpebral conjunctivae. Dry mucosa. NECK: No JVD. Supple. CHEST: Clear to auscultation. HEART: Regular rate and rhythm. ABDOMEN: Some distention, nontender. EXTREMITIES: Minimal LE edema. No tenderness NEUROLOGIC: No gross focality. Hospital Course 1. Recurrent nausea/vomiting/diarrhea c diff negative elevated lipase which is normalized Gall bladder US shows distended gall bladder and gall stones HIDA scan consistent with chronic cholecystitis on iv fluis and iv abx surgery on board- to /u as out patient to discuss about surgery advancing to low fiber diet and if tolerates will d/c home today 2. clinical dehydration 2 to above.on fluids. 3.URSULA on ckd stage 3 resolved now 4. Hypertension, stable on home Meds 5. DM2, oral meds on hold 'on iss will monitor. DVT PROPHYLAXIS Lovenox DISPOSITION possible d/c home today Total time spent on discharge = 35MINUTES This includes examination of the patient, discharge planning, medication reconciliation, and communication with other providers. Discharge Instructions Discharge Instructions Date of Service Nov 09, 2016. Admission Reason for Admission: Diarrhea Discharge Discharge Diagnosis / Problem: diarrhea. chronic cholecystitis Discharge Goals Goal(s): Decrease discomfort Activity Recommendations Activity Limitations: resume your previous activity . Instructions / Follow-Up Instructions / Follow-Up FOLLOWUP WITH FAMILY DOCTOR IN ONE WEEK FOLLOWUP WITH SURGERY DR.MARK SOLOMON ON ONE WEEK TO DISCUSS ABOUT SURGERY. ( [address] [place] [address] ) Current Hospital Diet Patient's current hospital diet: Regular Diet, Low Fiber Diet Discharge Diet Recommended Diet: AHA Diet (Heart Healthy) Pending Studies Studies pending at discharge: no Laboratory Results Hemoglobin A1c Test 11/07/16 02:09 Range/Units Estimated Average Glucose 166 mg/dl Hemoglobin A1c 7.4 H 4.5-5.6 % Medical Emergencies . Who to Call and When: Medical Emergencies: If at any time you feel your situation is an emergency, please call 911 immediately. . Non-Emergent Contact Non-Emergency issues call your: Primary Care Provider . . "Provider Documentation" section prepared by Patrick Duran. . VTE Core Measure Inpt VTE Proph given/why not?: Enoxaparin (Lovenox)SQ
[2016-12-05] MEDS ORDERED: DOXY-300 PO (15:12)
== END 2016-11-09 18:00 | disposition home or self-care (01) | DRG 445 ==
LOC: C.EDB 01:00 → C.MSN 04:12 → ENRESERV 04:21 → OBSVTOIN 10:41 → C.MSN 11-08 18:22
PROVIDERS: ADMIT Internal Medicine; ATTEND Internal Medicine
DX: K80.10 Calculus of gallbladder with chronic cholecystitis without obstruction (principal); N17.9 Acute kidney failure, unspecified; E86.0 Dehydration; R19.7 Diarrhea, unspecified; K83.8 Other specified diseases of biliary tract; N18.3 Chronic kidney disease, stage 3 (moderate); I12.9 Hypertensive chronic kidney disease with stage 1 through stage 4 chronic kidney disease, or unspecified chronic kidney disease; E11.9 Type 2 diabetes mellitus without complications; E03.9 Hypothyroidism, unspecified; Z51.81 Encounter for therapeutic drug level monitoring; Z79.899 Other long term (current) drug therapy; Z79.84 Long term (current) use of oral hypoglycemic drugs; Z82.49 Family history of ischemic heart disease and other diseases of the circulatory system

== ENCOUNTER 2016-12-02 20:08 | Observation (INO) | payer OTHER ==
[~2016-12-02] VITALS: Ht 154.9 cm; Wt 68.0 kg
[2016-12-02] MEDS ORDERED: ONDANSETRON 8 MG/54 ML D5W IV STA (20:43)
[2016-12-02] MEDS ORDERED: SODIUM CHLORIDE 0.9% 1000ML 1,000 ML IV STA ×2 (20:43)
[2016-12-02 21:52] LABS: BASO % 0.3 %; BASO ABS # 0.02 K/uL (0-0.2); COMPLETE YES; HEMATOCRIT 40.2 % (37-47); IG% 0.7 %; LYMPH % 16.4 %; LYMPH ABS # 1.26 K/uL (1.2-3.4); MEAN CELL VOLUME 86.6 fL (80-100); MEAN CORPUSCULAR HEMOGLOBIN 28.2 pg (25-34); MEAN CORPUSCULAR HGB CONC 32.6 g/dl (32-36); MEAN PLATELET VOLUME 9.2 fL (7.4-10.4); MONO % 5.9 %; NEUT % 74.7 %; PLATELET COUNT 226 K/uL (130-400); RED BLOOD COUNT 4.64 M/uL (4.2-5.4); WHITE BLOOD COUNT 7.67 K/uL (4.8-10.8)
[2016-12-02 22:04] LABS: ALKALINE PHOSPHATASE 82 U/L (45-117); ALT/SGPT 13 U/L (12-78); BLOOD UREA NITROGEN 10 mg/dl (7-18); BUN/CREATININE RATIO 11.3 (10-20); CALCIUM 8.7 mg/dl (8.5-10.1); CARBON DIOXIDE 26 mmol/L (21-32); CHLORIDE 106 mmol/L (98-107); CREATININE 0.92 mg/dl (0.60-1.20); GLUCOSE 157 mg/dl (70-99); SODIUM 139 mmol/L (136-145)
[2016-12-02 22:52] LABS: URINE APPEARANCE CLOUDY (CLEAR); URINE COLOR DK YELLOW; URINE EPITHELIAL CELL AUTO >30 /lpf (0-5); URINE NITRITE NEG (NEG); URINE SPECIFIC GRAVITY 1.031 (1.000-1.030); UROBILINOGEN NEG (NEG); ZZURINE CULT IF INDIC CATH NO
--- NOTE | 2016-12-02 22:53 | DIAGNOSTIC IMAGING REPORT ---
ABD/PELVIS NO IV OR ORAL CONT CLINICAL HISTORY: 86 years-old Female presenting with acute abdominal pain. TECHNIQUE: Multidetector CT of the abdomen and pelvis was performed without the use of intravenous contrast. IV contrast: None. A dose lowering technique was used consistent with the principles of ALARA (as low as reasonably achievable). COMPARISON: HIDA scan from 11/07/2016 and ultrasound from 11/07/2016. CT DOSE (mGy.cm): The estimated cumulative dose is 433.94 mGy.cm. FINDINGS: Wildlife [employer] topogram: Cholecystectomy clips noted. Lung bases: Extensive dependent right basilar consolidation with right lower lobe volume loss, likely extensive passive atelectasis. Mild multichamber enlargement of the heart. Coronary artery and aortic valve calcification. Small right pleural effusion. Liver: Normal morphology. Normal density. Biliary: Mild intrahepatic and extrahepatic biliary ductal prominence, likely a reservoir effect in the post cholecystectomy state. Gallbladder surgically absent. Pancreas: Severe parenchymal atrophy. Spleen: Normal. Adrenal glands: Nodular thickening of the left adrenal gland, nonspecific. Right adrenal gland normal. Kidneys and ureters: Normal noncontrast appearance. No hydronephrosis. Bladder: Incompletely evaluated secondary to underdistention. Pelvic organs: Uterus surgically absent. No adnexal masses. Bowel: Diverticulosis of the sigmoid colon with chronic diverticular disease. Artifact noted across the left hemipelvis. Few diverticula in the descending colon. No bowel obstruction. Large hiatal hernia with the majority of the stomach above the diaphragm. No obstruction or volvulus. Peritoneal cavity: No free fluid or intraperitoneal gas. Lymph nodes: No gross lymphadenopathy allowing for noncontrast technique. Vasculature: Atherosclerosis of the normal caliber abdominal aorta. Abdominal wall: Infiltration over the subcutaneous tissue of the lower ventral right abdominal wall. Musculoskeletal: Degenerative changes of the spine. IMPRESSION: 1. No acute intra-abdominal pathology. 2. Postsurgical changes of cholecystectomy. No postsurgical complication. 3. Chronic diverticular disease of the sigmoid colon. No diverticulitis. 4. Extensive right basilar atelectasis with small right pleural effusion. 5. Large hiatal hernia. 6. Infiltration of the superficial right ventral abdominal wall, possibly postsurgical or related to medication administration. Correlate clinically to exclude cellulitis. Electronically signed by: Andrew Ho M.D. 12/02/2016 10:52 PM Dictated Date/Time: 12/02/2016 10:43 PM
[2016-12-02 22:58] LABS: MANUAL MICROSCOPIC REQUIRED? NO; REVIEW REQ? YES
[2016-12-02 22:59] LABS: URINE BILIRUBIN NEG (NEG)
[2016-12-02] MEDS ORDERED: ETHA1TAB3 PO (23:01)
[2016-12-02 23:06] LABS: URINE PATH CASTS 0-3 GRANULAR CASTS /lpf (0)
[2016-12-02 23:07] LABS: URINE MUCUS PRESENT (NONE PRSENT)
[2016-12-03] VITALS (7 sets, daily range): BP systolic 110–162; BP diastolic 61–77; PULSE 65–77; TEMP 36.8–37; O2SAT 92–93; Ht 154.9 cm; Wt 68.0 kg
[2016-12-03] MEDS ORDERED: GLUCOSE 40% GEL 15 GM TUBE PO PRN (03:00)
[2016-12-03] MEDS ORDERED: GLUCOSE 10 TABS/TUBE PO PRN (03:00)
[2016-12-03] MEDS ORDERED: DEXTROSE 50% 50 ML SYR IV PRN (03:00)
[2016-12-03] MEDS ORDERED: ONDANSETRON INJ 2 MG/ML 2 ML VIAL IV PRN (03:00)
[2016-12-03] MEDS ORDERED: GLUCAGON FOR INJ 1 MG VIAL SQ PRN (03:00)
--- NOTE | 2016-12-03 03:30 | History and Physical ---
History & Physical Date & Time of Service: Dec 03, 2016 at 03:10 Chief Complaint: Diarrhea Primary Care Physician: Tony Tracy M.D. History of Present Illness Source: patient, family, clinic records, hospital records 86 yo F with recent cholecystectomy 2 weeks ago presents with excessive nonbloody diarrhea that began 24 hours ago and had a few episodes of nausea w vomiting, also, today. She was recently admitted to this hospital and treated for cholecystitis. She went home, became worse within a day or so and went to [facility] where she had her gallbladder removed. In that time, however, she was on multiple antibiotics. She denies any fevers but does report some chills which she says is common for her after any surgery involving anesthesia, and the chills will last up to 6 weeks. She reports an uneventful post-operative course and was feeling well, tolerating PO up until last night when this began. She only reports some abdominal cramping just prior to any diarrhea, but there is no severe abdominal pain. She denies any chest pain or shortness of breath. She is wearing oxygen for comfort right now, and does report some slight coughing that just began today. Otherwise she is feeling well without symptoms. Up until today she reports tolerating food well and drinking lots of gingerale and water at home. Also she denies eating any strange foods from buffets or potlucks, and denies any handling of raw chicken. Past Medical/Surgical History Medical Problems: (1) CKD (chronic kidney disease), stage III Status: Chronic (2) DM type 2 (diabetes mellitus, type 2) Status: Chronic (3) Hyperlipidemia Status: Chronic (4) Hypothyroidism Status: Chronic (5) Osteoporosis Status: Chronic (6) Pulmonary embolism Status: Chronic (7) Statin intolerance Status: Chronic Surgical Problems: (1) H/O total hysterectomy Status: Chronic (2) History of cataract surgery Status: Chronic (3) S/P appendectomy Status: Chronic (4) S/p repair of rectocele Status: Chronic (5) S/p repair of vagina Status: Chronic (6) S/P total knee arthroplasty Permanent Comment: bilateral Status: Chronic Family History Diabetes mellitus SON Hypertension FATHER MOTHER BROTHER Social History Smoking Status: Never Smoker Alcohol Use: none Drug Use: none Marital Status: single Housing status: lives alone Occupational Status: retired Immunizations History of Influenza Vaccine: Yes Influenza Vaccine Date: Nov 23, 2015 History of Tetanus Vaccine?: Yes Tetanus Immunization Date: Sep 24, 2012 History of Pneumococcal: Yes Pneumococcal Date: Nov 23, 2015 History of Hepatitis B Vaccine: No Multi-Drug Resistant Organisms History of MDRO: No Allergies Coded Allergies: Sodium Hypochlorite (Verified Allergy, Unknown, Clorox, 12/02/16) Acetaminophen (Verified Adverse Reaction, Mild, NAUSEA; HEART RACES, ELEVATED TEMP, 12/02/16) Sulfa Antibiotics (Verified Adverse Reaction, Mild, Nausea, 12/02/16) Uncoded Allergies: UNCLAS THER/AG (Allergy, Unknown, ALLERGY COSMETIC PRODUCTS, 11/05/16) Home Medications Scheduled Amlodipine (Norvasc), 5 MG PO DAILY Calcium Carbonate-Vitamin D (Calcium 600 + D), 1 TAB PO DAILY Carvedilol (Coreg), 1 TAB PO BID Ethacrynic Acid (Edecrin), 25 MG PO BID AFTER MEALS Ibandronate Sodium (Boniva), 1 TAB PO MONTHLY Levothyroxine Sodium (Levothyroxine Sodium), 1 TAB PO DAILY Metformin Hcl (Glucophage), 500 MG PO BID Multiple Vitamins W/ Minerals (Centrum Silver 50+Women), 1 TAB PO DAILY Valsartan (Diovan), 320 MG PO DAILY Review of Systems At least ten systems reviewed and negative except as indicated in HPI. Physical Exam Vital Signs Date Time Temp Pulse Resp B/P (MAP) Pulse Ox O2 Delivery O2 Flow Rate FiO2 12/03/16 01:27 64 18 147/67 94 Room Air 12/03/16 00:14 66 12/02/16 23:42 69 18 141/92 95 12/02/16 22:01 67 16 152/66 94 Nasal Cannula 3.0 12/02/16 20:29 67 12/02/16 20:14 36.8 70 18 127/120 93 Room Air General Appearance: WD/WN, no apparent distress Head: normocephalic, atraumatic Eyes: normal inspection, sclerae normal ENT: hearing grossly normal, + pertinent finding (mucous membranes are dry) Neck: trachea midline Respiratory/Chest: lungs clear, normal breath sounds, no respiratory distress, no accessory muscle use Cardiovascular: regular rate, rhythm, no edema, no gallop, no JVD, no murmur, normal peripheral pulses Abdomen/GI: normal bowel sounds, soft, + tenderness (slight TTP generally with some guarding.) Back: normal inspection Extremities/Musculoskelatal: normal inspection, no calf tenderness, no pedal edema Neurologic/Psych: property clerk II-XII nml as tested, no motor/sensory deficits, alert, normal mood/affect, oriented x 3 Skin: normal color, warm/dry, no rash Diagnostics Laboratory Results 12/02/16 21:18 Red Blood Count 4.64, Mean Corpuscular Volume 86.6, Mean Corpuscular Hemoglobin 28.2, Mean Corpuscular Hemoglobin Concent 32.6, Mean Platelet Volume 9.2, Neutrophils (%) (Auto) 74.7, Lymphocytes (%) (Auto) 16.4, Monocytes (%) (Auto) 5.9, Eosinophils (%) (Auto) 2.0, Basophils (%) (Auto) 0.3, Neutrophils # (Auto) 5.74, Lymphocytes # (Auto) 1.26, Monocytes # (Auto) 0.45, Eosinophils # (Auto) 0.15, Basophils # (Auto) 0.02 12/02/16 21:18 12/02/16 23:02 Test 12/02/16 20:20 12/02/16 21:18 12/02/16 23:02 12/03/16 03:08 Urine Color DK YELLOW Urine Appearance CLOUDY (CLEAR) Urine pH 5.0 (4.5-7.5) Urine Specific [place] 1.031 (1.000-1.030) Urine Protein 2+ (NEG) Urine Glucose (UA) NEG (NEG) Urine Ketones TRACE (NEG) Urine Occult Blood TRACE (NEG) Urine Nitrite NEG (NEG) Urine Bilirubin NEG (NEG) Urine Urobilinogen NEG (NEG) Urine Leukocyte Esterase NEG (NEG) Urine WBC (Auto) 1-5 /hpf (0-5) Urine RBC (Auto) 0-4 /hpf (0-4) Urine Hyaline Casts (Auto) 10-30 /lpf (0-5) Urine Epithelial Cells (Auto) >30 /lpf (0-5) Urine Bacteria (Auto) NEG (NEG) Urine Renal Epithelial Cells 0-5 /lpf (0-5) Urine Pathogenic Casts 0-3 GRANULAR CASTS /lpf (0) Urine Mucus PRESENT (NONE PRSENT) White Blood Count 7.67 K/uL (4.8-10.8) Red Blood Count 4.64 M/uL (4.2-5.4) Hemoglobin 13.1 g/dL (12.0-16.0) Hematocrit 40.2 % (37-47) Mean Corpuscular Volume 86.6 fL (80-100) Mean Corpuscular Hemoglobin 28.2 pg (25-34) Mean Corpuscular Hemoglobin Concent 32.6 g/dl (32-36) Platelet Count 226 K/uL (130-400) Mean Platelet Volume 9.2 fL (7.4-10.4) Neutrophils (%) (Auto) 74.7 % Lymphocytes (%) (Auto) 16.4 % Monocytes (%) (Auto) 5.9 % Eosinophils (%) (Auto) 2.0 % Basophils (%) (Auto) 0.3 % Neutrophils # (Auto) 5.74 K/uL (1.4-6.5) Lymphocytes # (Auto) 1.26 K/uL (1.2-3.4) Monocytes # (Auto) 0.45 K/uL (0.11-0.59) Eosinophils # (Auto) 0.15 K/uL (0-0.5) Basophils # (Auto) 0.02 K/uL (0-0.2) RDW Standard Deviation 45.9 fL (36.4-46.3) RDW Coefficient of Variation 14.9 % (11.5-14.5) Immature Granulocyte % (Auto) 0.7 % Immature Granulocyte # (Auto) 0.05 K/uL (0.00-0.02) Anion Gap 7.0 mmol/L (3-11) Est Creatinine Clear Calc Drug Dose 38.7 ml/min Estimated GFR () 65.3 Estimated GFR (Non- 56.4 BUN/Creatinine Ratio 11.3 (10-20) Calcium Level 8.7 mg/dl (8.5-10.1) Total Bilirubin 0.6 mg/dl (0.2-1) Alanine Aminotransferase (ALT/SGPT) 13 U/L (12-78) Alkaline Phosphatase 82 U/L (45-117) Total Protein 7.5 gm/dl (6.4-8.2) Albumin 2.9 gm/dl (3.4-5.0) Lipase 100 U/L (73-393) Direct Bilirubin 0.1 mg/dl (0-0.2) Aspartate Amino Transf (AST/SGOT) 11 U/L (15-37) Results Past 24 Hours Test 12/02/16 20:20 12/02/16 21:18 12/02/16 23:02 12/03/16 03:08 Range/Units Urine Color DK YELLOW Urine Appearance CLOUDY CLEAR Urine pH 5.0 4.5-7.5 Urine Specific [place] 1.031 1.000-1.030 Urine Protein 2+ NEG Urine Glucose (UA) NEG NEG Urine Ketones TRACE NEG Urine Occult Blood TRACE NEG Urine Nitrite NEG NEG Urine Bilirubin NEG NEG Urine Urobilinogen NEG NEG Urine Leukocyte Esterase NEG NEG Urine WBC (Auto) 1-5 0-5 /hpf Urine RBC (Auto) 0-4 0-4 /hpf Urine Hyaline Casts (Auto) 10-30 0-5 /lpf Urine Epithelial Cells (Auto) >30 0-5 /lpf Urine Bacteria (Auto) NEG NEG Urine Renal Epithelial Cells 0-5 0-5 /lpf Urine Pathogenic Casts 0-3 GRANULAR CASTS 0 /lpf Urine Mucus PRESENT NONE PRSENT White Blood Count 7.67 4.8-10.8 K/uL Red Blood Count 4.64 4.2-5.4 M/uL Hemoglobin 13.1 12.0-16.0 g/dL Hematocrit 40.2 37-47 % Mean Corpuscular Volume 86.6 80-100 fL Mean Corpuscular Hemoglobin 28.2 25-34 pg Mean Corpuscular Hemoglobin Concent 32.6 32-36 g/dl Platelet Count 226 130-400 K/uL Mean Platelet Volume 9.2 7.4-10.4 fL Neutrophils (%) (Auto) 74.7 % Lymphocytes (%) (Auto) 16.4 % Monocytes (%) (Auto) 5.9 % Eosinophils (%) (Auto) 2.0 % Basophils (%) (Auto) 0.3 % Neutrophils # (Auto) 5.74 1.4-6.5 K/uL Lymphocytes # (Auto) 1.26 1.2-3.4 K/uL Monocytes # (Auto) 0.45 0.11-0.59 K/uL Eosinophils # (Auto) 0.15 0-0.5 K/uL Basophils # (Auto) 0.02 0-0.2 K/uL RDW Standard Deviation 45.9 36.4-46.3 fL RDW Coefficient of Variation 14.9 11.5-14.5 % Immature Granulocyte % (Auto) 0.7 % Immature Granulocyte # (Auto) 0.05 0.00-0.02 K/uL Sodium Level 139 136-145 mmol/L Potassium Level 3.0 3.5-5.1 mmol/L Chloride Level 106 98-107 mmol/L Carbon Dioxide Level 26 21-32 mmol/L Anion Gap 7.0 3-11 mmol/L Blood Urea Nitrogen 10 7-18 mg/dl Creatinine 0.92 0.60-1.20 mg/dl Est Creatinine Clear Calc Drug Dose 38.7 ml/min Estimated GFR () 65.3 Estimated GFR (Non- 56.4 BUN/Creatinine Ratio 11.3 10-20 Random Glucose 157 70-99 mg/dl Calcium Level 8.7 8.5-10.1 mg/dl Total Bilirubin 0.6 0.2-1 mg/dl Direct Bilirubin 0.1 0-0.2 mg/dl Aspartate Amino Transf (AST/SGOT) 11 15-37 U/L Alanine Aminotransferase (ALT/SGPT) 13 12-78 U/L Alkaline Phosphatase 82 45-117 U/L Total Protein 7.5 6.4-8.2 gm/dl Albumin 2.9 3.4-5.0 gm/dl Lipase 100 73-393 U/L Diagnostic Radiology ABD/PELVIS NO IV OR ORAL CONT CLINICAL HISTORY: 86 years-old Female presenting with acute abdominal pain. TECHNIQUE: Multidetector CT of the abdomen and pelvis was performed without the use of intravenous contrast. IV contrast: None. A dose lowering technique was used consistent with the principles of ALARA (as low as reasonably achievable). COMPARISON: HIDA scan from 11/07/2016 and ultrasound from 11/07/2016. CT DOSE (mGy.cm): The estimated cumulative dose is 433.94 mGy.cm. FINDINGS: A/C Tech topogram: Cholecystectomy clips noted. Lung bases: Extensive dependent right basilar consolidation with right lower lobe volume loss, likely extensive passive atelectasis. Mild multichamber enlargement of the heart. Coronary artery and aortic valve calcification. Small right pleural effusion. Liver: Normal morphology. Normal density. Biliary: Mild intrahepatic and extrahepatic biliary ductal prominence, likely a reservoir effect in the post cholecystectomy state. Gallbladder surgically absent. Pancreas: Severe parenchymal atrophy. Spleen: Normal. Adrenal glands: Nodular thickening of the left adrenal gland, nonspecific. Right adrenal gland normal. Kidneys and ureters: Normal noncontrast appearance. No hydronephrosis. Bladder: Incompletely evaluated secondary to underdistention. Pelvic organs: Uterus surgically absent. No adnexal masses. Bowel: Diverticulosis of the sigmoid colon with chronic diverticular disease. Artifact noted across the left hemipelvis. Few diverticula in the descending colon. No bowel obstruction. Large hiatal hernia with the majority of the stomach above the diaphragm. No obstruction or volvulus. Peritoneal cavity: No free fluid or intraperitoneal gas. Lymph nodes: No gross lymphadenopathy allowing for noncontrast technique. Vasculature: Atherosclerosis of the normal caliber abdominal aorta. Abdominal wall: Infiltration over the subcutaneous tissue of the lower ventral right abdominal wall. Musculoskeletal: Degenerative changes of the spine. IMPRESSION: 1. No acute intra-abdominal pathology. 2. Postsurgical changes of cholecystectomy. No postsurgical complication. 3. Chronic diverticular disease of the sigmoid colon. No diverticulitis. 4. Extensive right basilar atelectasis with small right pleural effusion. 5. Large hiatal hernia. 6. Infiltration of the superficial right ventral abdominal wall, possibly postsurgical or related to medication administration. Correlate clinically to exclude cellulitis. SINGLE VIEW CHEST CLINICAL HISTORY: Hypoxia. Cough FINDINGS: An AP, portable, upright chest radiograph is compared to study dated 09/06/2016 and correlated with chest CT dated 09/30/2006. The examination is degraded by portable technique and patient rotation. The heart is enlarged and there is atherosclerotic calcification of the thoracic aorta. A large hiatal hernia is identified. Chronic interstitial thickening is similar to previous. Bibasilar airspace opacities are observed. No large pleural effusion or pneumothorax is seen. The skeletal structures are osteopenic. The bony thorax is grossly intact. IMPRESSION: 1. There are bibasilar airspace opacities. This could represent atelectasis versus pneumonia/aspiration pneumonitis. Clinical correlation will be required and radiographic follow-up to resolution is recommended. 2. Cardiomegaly and hiatal hernia. EKG SR 62 with TWI in V1 and V2 Impression Assessment and Plan 86 yo F with h/o cholecystitis and abx s/p cholecystectomy two weeks ago presents with excessive diarrhea and some vomiting earlier today with diarrhea persistent >24 hours. 1. Diarrhea- main concern is for c-diff with h/o abx use and multiple hospitalizations. May also be a viral gastroenteritis? Cont with supportive care including electrolyte replacement and IVF and antiemetics. Stool studies were ordered and will empirically treat her for c-diff with her history and presentation. Contact precautions empirically. CT a/p was unremarkable aside from post-surgical changes. 2. Cough/Hypoxia 2/2 poss aspiration pneumonia in setting of vomiting-Vanc/ Zosyn started (MRSA coverage with recent hospitalization). Blood and sputum cultures were ordered. 3. Hypokalemia-replete with IV/PO, recheck at 1000 4. Dehydration-received some IVF in the ER, will continue these now. 5. CKD Stage III 6. Hypothyroidism-cont home Synthroid 7. DMII-at goal, cont ISS/Lantus with carb coverage. 8. HTN-controlled, cont home meds DVT proph-Heparin Full Code per my conversation with she and her daughter/YUMIKO on admission Dispo-uncertain at this time, Med/Surg. Shruthi Rosen [facility] Med/Surg Resuscitation Status FULL RESUSCITATION VTE Prophylaxis VTE Risk Assessment Done? Y/N: Yes Risk Level: Moderate Given or contraindicated: Unfractionated heparin SQ
[2016-12-03] MEDS ORDERED: IV FLUIDS COMPLETED PRN (03:45)
--- NOTE | 2016-12-03 04:00 | EMERGENCY ROOM VISIT NOTE ---
History Report prepared by Tong: Alessio Garcia Under the Supervision of: Dr. Manjit Saenz M.D. First contact with patient: 20:36 Chief Complaint: GI ASSESSMENT Stated Complaint: VOMITING Nursing Triage Summary: Pt c/o nausea/vomiting/diarrhea starting this afternoon. Took immodium with no relief. Pt states she was vomiting all bile and the diarrhea was out of control. History of Present Illness The patient is an 86 year old female who presents to the Emergency Room with complaints of intermittent vomiting and diarrhea starting this morning after eating breakfast. The patient additionally has been having diarrhea since 1500, and she could not leave the bathroom for 4 hours. She states that she does not have abdominal currently, though she has abdominal pain before her bowel movements. She is generally weak. The patient's family states that she she vomits she is vomiting and having diarrhea that is just bile. The patient has had her gall bladder out three weeks ago, and she has recently been admitted twice for similar episodes of diarrhea. The patient has had similar episodes after the gall bladder surgery, though she did not vomit like she is today. Pt denies LOC, headache, fevers, chills, diaphoresis, visual changes, neck pain, chest pain, breathing difficulties, back pain, melena, hematochezia, urinary symptoms, numbness, lymphadenopathy, rash, or other complaints. Source of History: patient, family Onset: this morning Position: other (global) Quality: other (vomiting and diarrhea) Timing: intermittent Associated Symptoms: + abdominal pain Review of Systems See HPI for pertinent positives and negatives. A total of ten systems were reviewed and were otherwise negative. Past Medical & Surgical Medical Problems: (1) Cholecystitis (2) CKD (chronic kidney disease), stage III (3) DM type 2 (diabetes mellitus, type 2) (4) Hyperlipidemia (5) Hypothyroidism (6) Osteoporosis (7) Pulmonary embolism (8) Statin intolerance Surgical Problems: (1) H/O total hysterectomy (2) H/O: hysterectomy (3) History of appendectomy (4) History of cataract surgery (5) S/P appendectomy (6) S/p repair of rectocele (7) S/p repair of vagina (8) S/P total knee arthroplasty Family History Diabetes mellitus SON Hypertension FATHER MOTHER BROTHER Social History Smoking Status: Never Smoker Drug Use: none Marital Status: single Occupation Status: retired Current/Historical Medications Scheduled Amlodipine (Norvasc), 5 MG PO DAILY Calcium Carbonate-Vitamin D (Calcium 600 + D), 1 TAB PO DAILY Carvedilol (Coreg), 1 TAB PO BID Ethacrynic Acid (Edecrin), 25 MG PO BID AFTER MEALS Ibandronate Sodium (Boniva), 1 TAB PO MONTHLY Levothyroxine Sodium (Levothyroxine Sodium), 1 TAB PO DAILY Metformin Hcl (Glucophage), 500 MG PO BID Multiple Vitamins W/ Minerals (Centrum Silver 50+Women), 1 TAB PO DAILY Valsartan (Diovan), 320 MG PO DAILY Allergies Coded Allergies: Sodium Hypochlorite (Verified Allergy, Unknown, Clorox, 12/02/16) Acetaminophen (Verified Adverse Reaction, Mild, NAUSEA; HEART RACES, ELEVATED TEMP, 12/02/16) Sulfa Antibiotics (Verified Adverse Reaction, Mild, Nausea, 12/02/16) Uncoded Allergies: UNCLAS THER/AG (Allergy, Unknown, ALLERGY COSMETIC PRODUCTS, 11/05/16) Physical Exam Vital Signs Date Time Temp Pulse Resp B/P (MAP) Pulse Ox O2 Delivery O2 Flow Rate FiO2 12/03/16 00:14 66 12/02/16 23:42 69 18 141/92 95 12/02/16 22:01 67 16 152/66 94 Nasal Cannula 3.0 12/02/16 20:29 67 12/02/16 20:14 36.8 70 18 127/120 93 Room Air Physical Exam GENERAL: Awake, alert, well-appearing, in no distress HENT: Normocephalic, atraumatic. Oropharynx unremarkable. EYES: Normal conjunctiva. Sclera non-icteric. NECK: Supple. No nuchal rigidity. FROM. No JVD. RESPIRATORY: Clear to auscultation. CARDIAC: Regular rate, normal rhythm. Extremities warm and well perfused. Pulses equal. ABDOMEN: Right upper, right lower, and epigastric tenderness. Soft, non- distended. No rebound or guarding. No masses. RECTAL: Deferred. MUSCULOSKELETAL: Chest examination reveals no tenderness. The back is symmetrical on inspection without obvious abnormality. There is no CVA tenderness to palpation. No joint edema. LOWER EXTREMITIES: 2+ edema bilaterally. Calves are equal size bilaterally and non-tender. No discoloration. NEURO: Normal sensorium. No sensory or motor deficits noted. SKIN: No rash or jaundice noted. Medical Decision & Procedures ER Provider Diagnostic Interpretation: Radiology results as stated below per my review and radiologist interpretation: ABD/PELVIS NO IV OR ORAL CONT CLINICAL HISTORY: 86 years-old Female presenting with acute abdominal pain. TECHNIQUE: Multidetector CT of the abdomen and pelvis was performed without the use of intravenous contrast. IV contrast: None. A dose lowering technique was used consistent with the principles of ALARA (as low as reasonably achievable). COMPARISON: HIDA scan from 11/07/2016 and ultrasound from 11/07/2016. CT DOSE (mGy.cm): The estimated cumulative dose is 433.94 mGy.cm. FINDINGS: Electrical Contacts Adjuster topogram: Cholecystectomy clips noted. Lung bases: Extensive dependent right basilar consolidation with right lower lobe volume loss, likely extensive passive atelectasis. Mild multichamber enlargement of the heart. Coronary artery and aortic valve calcification. Small right pleural effusion. Liver: Normal morphology. Normal density. Biliary: Mild intrahepatic and extrahepatic biliary ductal prominence, likely a reservoir effect in the post cholecystectomy state. Gallbladder surgically absent. Pancreas: Severe parenchymal atrophy. Spleen: Normal. Adrenal glands: Nodular thickening of the left adrenal gland, nonspecific. Right adrenal gland normal. Kidneys and ureters: Normal noncontrast appearance. No hydronephrosis. Bladder: Incompletely evaluated secondary to underdistention. Pelvic organs: Uterus surgically absent. No adnexal masses. Bowel: Diverticulosis of the sigmoid colon with chronic diverticular disease. Artifact noted across the left hemipelvis. Few diverticula in the descending colon. No bowel obstruction. Large hiatal hernia with the majority of the stomach above the diaphragm. No obstruction or volvulus. Peritoneal cavity: No free fluid or intraperitoneal gas. Lymph nodes: No gross lymphadenopathy allowing for noncontrast technique. Vasculature: Atherosclerosis of the normal caliber abdominal aorta. Abdominal wall: Infiltration over the subcutaneous tissue of the lower ventral right abdominal wall. Musculoskeletal: Degenerative changes of the spine. IMPRESSION: 1. No acute intra-abdominal pathology. 2. Postsurgical changes of cholecystectomy. No postsurgical complication. 3. Chronic diverticular disease of the sigmoid colon. No diverticulitis. 4. Extensive right basilar atelectasis with small right pleural effusion. 5. Large hiatal hernia. 6. Infiltration of the superficial right ventral abdominal wall, possibly postsurgical or related to medication administration. Correlate clinically to exclude cellulitis. Electronically signed by: Andrew Ho M.D. 12/02/2016 10:52 PM Dictated Date/Time: 12/02/2016 10:43 PM Laboratory Results 12/02/16 21:18 Red Blood Count 4.64, Mean Corpuscular Volume 86.6, Mean Corpuscular Hemoglobin 28.2, Mean Corpuscular Hemoglobin Concent 32.6, Mean Platelet Volume 9.2, Neutrophils (%) (Auto) 74.7, Lymphocytes (%) (Auto) 16.4, Monocytes (%) (Auto) 5.9, Eosinophils (%) (Auto) 2.0, Basophils (%) (Auto) 0.3, Neutrophils # (Auto) 5.74, Lymphocytes # (Auto) 1.26, Monocytes # (Auto) 0.45, Eosinophils # (Auto) 0.15, Basophils # (Auto) 0.02 12/02/16 21:18 12/02/16 23:02 Test 12/02/16 20:20 12/02/16 21:18 12/02/16 23:02 Urine Color DK YELLOW Urine Appearance CLOUDY (CLEAR) Urine pH 5.0 (4.5-7.5) Urine Specific [place] 1.031 (1.000-1.030) Urine Protein 2+ (NEG) Urine Glucose (UA) NEG (NEG) Urine Ketones TRACE (NEG) Urine Occult Blood TRACE (NEG) Urine Nitrite NEG (NEG) Urine Bilirubin NEG (NEG) Urine Urobilinogen NEG (NEG) Urine Leukocyte Esterase NEG (NEG) Urine WBC (Auto) 1-5 /hpf (0-5) Urine RBC (Auto) 0-4 /hpf (0-4) Urine Hyaline Casts (Auto) 10-30 /lpf (0-5) Urine Epithelial Cells (Auto) >30 /lpf (0-5) Urine Bacteria (Auto) NEG (NEG) Urine Renal Epithelial Cells 0-5 /lpf (0-5) Urine Pathogenic Casts 0-3 GRANULAR CASTS /lpf (0) Urine Mucus PRESENT (NONE PRSENT) White Blood Count 7.67 K/uL (4.8-10.8) Red Blood Count 4.64 M/uL (4.2-5.4) Hemoglobin 13.1 g/dL (12.0-16.0) Hematocrit 40.2 % (37-47) Mean Corpuscular Volume 86.6 fL (80-100) Mean Corpuscular Hemoglobin 28.2 pg (25-34) Mean Corpuscular Hemoglobin Concent 32.6 g/dl (32-36) Platelet Count 226 K/uL (130-400) Mean Platelet Volume 9.2 fL (7.4-10.4) Neutrophils (%) (Auto) 74.7 % Lymphocytes (%) (Auto) 16.4 % Monocytes (%) (Auto) 5.9 % Eosinophils (%) (Auto) 2.0 % Basophils (%) (Auto) 0.3 % Neutrophils # (Auto) 5.74 K/uL (1.4-6.5) Lymphocytes # (Auto) 1.26 K/uL (1.2-3.4) Monocytes # (Auto) 0.45 K/uL (0.11-0.59) Eosinophils # (Auto) 0.15 K/uL (0-0.5) Basophils # (Auto) 0.02 K/uL (0-0.2) RDW Standard Deviation 45.9 fL (36.4-46.3) RDW Coefficient of Variation 14.9 % (11.5-14.5) Immature Granulocyte % (Auto) 0.7 % Immature Granulocyte # (Auto) 0.05 K/uL (0.00-0.02) Anion Gap 7.0 mmol/L (3-11) Est Creatinine Clear Calc Drug Dose 38.7 ml/min Estimated GFR () 65.3 Estimated GFR (Non- 56.4 BUN/Creatinine Ratio 11.3 (10-20) Calcium Level 8.7 mg/dl (8.5-10.1) Total Bilirubin 0.6 mg/dl (0.2-1) Alanine Aminotransferase (ALT/SGPT) 13 U/L (12-78) Alkaline Phosphatase 82 U/L (45-117) Total Protein 7.5 gm/dl (6.4-8.2) Albumin 2.9 gm/dl (3.4-5.0) Lipase 100 U/L (73-393) Direct Bilirubin 0.1 mg/dl (0-0.2) Aspartate Amino Transf (AST/SGOT) 11 U/L (15-37) Laboratory results reviewed by me Medications Administered Medications (Trade) Dose Ordered Sig/Radha Route Start Time Stop Time Status Last Admin Dose Admin Sodium Chloride 1,000 ml @ 125 mls/hr Q8H STAT IV 12/02/16 20:43 12/03/16 04:42 12/02/16 20:43 125 MLS/HR Sodium Chloride 1,000 ml @ 999 mls/hr Q1H1M STAT IV 12/02/16 20:43 12/02/16 21:43 DC 12/02/16 21:11 999 MLS/HR Ondansetron HCl (Zofran 8mg Iv) 8 mg NOW STAT IV 12/02/16 20:43 12/02/16 20:45 DC 12/02/16 21:12 8 MG ECG Indication: vomiting Rate (beats per minute): 62 Rhythm: sinus rhythm Findings: 1st degree AV block, Q waves (Anterior and septal), T-wave inversion (V2), left axis deviation Comparison ECG Date: 11/02/16 Change: T wave inversions are new ED Course 2035: The patient was evaluated in room C8. A complete history and physical exam was performed. 2042: Zofran 8mg IV, Sodium Chloride 1000 ml @ 999 mls/hr IV, Sodium Chloride 1000 ml @ 125 mls/hr IV 2331: I reevaluated the patient, and she was doing well. She is getting to have a PO challenge. She has not yet given a stool sample. 0121: Discussed the patient's case with Inez Torres. The patient will be evaluated for further treatment and disposition. Medical Decision Triage Nursing notes reviewed. The patient's presentation and history were concerning for vomiting, diarrhea, and weakness. Etiologies such as postoperative complication, C. difficile infection, gastroenteritis, food borne illness, infections, obstruction, pancreatitis, appendicitis, diverticulitis, inflammatory bowel disease, GI bleed, biliary pathology, toxicologic as well as others were entertained. The patient was evaluated. She was treated as above. She was hydrated and given Zofran. She was feeling better. She had a CT scan performed and this didn't reveal any evidence of an obstruction or acute intracranial process. The patient had no evidence of UTI. She was having difficulty giving a stool specimen for C. difficile testing. The patient was generally weak and still was having profuse diarrhea. Given the situation further evaluation and management in the hospital is felt to be appropriate. I did consult with Dr. Rosen. The patient was evaluated in the Emergency Room for further management. Medication Reconcilliation Current Medication List: was personally reviewed by me Blood Pressure Screening Patient's blood pressure: Elevated blood pressure Monitored by the hospitalist Consults Time Called: 011 Consulting Physician: Inez Torres Returned Call: [phone] Discussed the patient's case with Inez Torres. The patient will be evaluated for further treatment and disposition. Impression Primary Impression: Intractable diarrhea Additional Impression: Weakness Scribe Attestation The scribe's documentation has been prepared under my direction and personally reviewed by me in its entirety. I confirm that the note above accurately reflects all work, treatment, procedures, and medical decision making performed by me. Departure Information Dispostion Being Evaluated By Hospitalist Referrals Tony Tracy M.D. (PCP) Patient Instructions My [facility] Problem Qualifiers
[2016-12-03 05:51] LABS: INR 1.1 (0.9-1.1); PROTHROMBIN TIME (PATIENT) 11.6 SECONDS (9.0-12.0)
[2016-12-03] MEDS ORDERED: POTASSIUM CHLORIDE 20 MEQ TABCR PO ONE (06:00)
[2016-12-03] MEDS: SODIUM CHLORIDE 0.9% 1000ML 1,000 ML IV SCH ×2 (06:01→13:18)
[2016-12-03] MEDS: POTASSIUM CHLR 10 MEQ / WTR 10 MEQ in PREMIXED WATER 100 ML IV SCH ×2 (06:12→07:39)
[2016-12-03] MEDS: LEVOTHYROXINE 112 MCG TAB PO SCH (06:16)
[2016-12-03] MEDS: HEPARIN SOD 5000 UNIT/0.5 ML CARP SQ SCH ×3 (07:06→22:38)
--- NOTE | 2016-12-03 07:11 | DIAGNOSTIC IMAGING REPORT ---
SINGLE VIEW CHEST CLINICAL HISTORY: Hypoxia. Cough FINDINGS: An AP, portable, upright chest radiograph is compared to study dated 09/06/2016 and correlated with chest CT dated 09/30/2006. The examination is degraded by portable technique and patient rotation. The heart is enlarged and there is atherosclerotic calcification of the thoracic aorta. A large hiatal hernia is identified. Chronic interstitial thickening is similar to previous. Bibasilar airspace opacities are observed. No large pleural effusion or pneumothorax is seen. The skeletal structures are osteopenic. The bony thorax is grossly intact. IMPRESSION: 1. There are bibasilar airspace opacities. This could represent atelectasis versus pneumonia/aspiration pneumonitis. Clinical correlation will be required and radiographic follow-up to resolution is recommended. 2. Cardiomegaly and hiatal hernia. Electronically signed by: Armando Benavidez M.D. 12/03/2016 7:10 AM Dictated Date/Time: 12/03/2016 7:09 AM
[2016-12-03] MEDS ORDERED: PIPERACILL/TAZOBAC IV 3.375 GM in DEXTROSE 5% 100ML IV STA (08:18)
[2016-12-03] MEDS ORDERED: VANCOMYCIN INJ 1,500 MG in SODIUM CHLORIDE 0.9% 500ML 500 ML IV STA (08:20)
[2016-12-03] MEDS ORDERED: VANCOMYCIN CONSULT ACTIVE SCH (08:21)
[2016-12-03] MEDS ORDERED: PIPERACILL/TAZOBAC CONSULT ACTIVE SCH (08:30)
[2016-12-03] MEDS ORDERED: VANCOMYCIN HCL 125 MG/2.5ML SOLN PO SCH (09:00)
[2016-12-03] MEDS ORDERED: RASPBERRY SYRUP 5 ML UDP PO SCH (09:00)
--- NOTE | 2016-12-03 09:03 | Pharmacy Progress Note ---
Pharmacy Abx Initial Consult Date of Service Dec 03, 2016. Pharmacy Dosing Scope Date of Consult: 12/03/16 Consultation requested by: Dr. Rosen Pharmacy is consulted to initiate VANCOMYCIN and ZOSYN IV therapy, order appropriate labs and adjust drug dose/frequency. Subjective The patient is a 86 year old female admitted on Dec 03, 2016 at 01:11 for c/o nausea, vomiting, diarrhea and chills. She had recently been hospitalized 3 times in the last month. She was prescribed abx at least twice in the last month. In addition to these c/o there is noted hypoxia and cough and CXR showing bibasilar opacities: atelectasis vs aspiration pneumonitis vs pnx. Provider is concerned for aspiration pnx w/ risk factors for resistance. Empiric broad spectrum abx have been ordered. Objective Height (Feet): 5 Height (Inches): 1.00 Weight (Kilograms): 68.000 Vital Signs (Past 12Hrs) Vital Signs Past 12 Hours Date Time Temp Pulse Resp B/P (MAP) Pulse Ox O2 Delivery O2 Flow Rate FiO2 12/03/16 07:47 36.8 65 18 135/67 (89) 92 Nasal Cannula 2.0 12/03/16 02:47 36.9 67 18 162/71 (101) 93 Nasal Cannula 2.0 12/03/16 02:30 Nasal Cannula 2.0 12/03/16 02:30 Nasal Cannula 2.0 12/03/16 01:27 64 18 147/67 94 Room Air 12/03/16 00:14 66 12/02/16 23:42 69 18 141/92 95 12/02/16 22:01 67 16 152/66 94 Nasal Cannula 3.0 Lab Results (24Hrs) Laboratory Tests (24 Hours) Test 12/02/16 21:18 White Blood Count 7.67 K/uL (4.8-10.8) Red Blood Count 4.64 M/uL (4.2-5.4) Hemoglobin 13.1 g/dL (12.0-16.0) Hematocrit 40.2 % (37-47) Mean Corpuscular Volume 86.6 fL (80-100) Mean Corpuscular Hemoglobin 28.2 pg (25-34) Mean Corpuscular Hemoglobin Concent 32.6 g/dl (32-36) Platelet Count 226 K/uL (130-400) Mean Platelet Volume 9.2 fL (7.4-10.4) Neutrophils (%) (Auto) 74.7 % Lymphocytes (%) (Auto) 16.4 % Monocytes (%) (Auto) 5.9 % Eosinophils (%) (Auto) 2.0 % Basophils (%) (Auto) 0.3 % Neutrophils # (Auto) 5.74 K/uL (1.4-6.5) Lymphocytes # (Auto) 1.26 K/uL (1.2-3.4) Monocytes # (Auto) 0.45 K/uL (0.11-0.59) Eosinophils # (Auto) 0.15 K/uL (0-0.5) Basophils # (Auto) 0.02 K/uL (0-0.2) Micro Results Date/Time Source Procedure Growth Status 12/03/16 08:09 Blood Blood Culture Pending Ordered 12/03/16 08:09 Blood Blood Culture Pending Ordered Risk Factors for Resistance * Hospitalization for 48 hours or more within the past 90 days * Antimicrobial use within the last 90 days (ciprofloxacin and Unasyn 10/2016) Assessment & Plan Assessment * 86 year old female staring broad spectrum empiric abx therapy for aspiration pnx with risk factors for resistance * Patient reported to be dehydrated on admission secondary to NVD. Currently SCr 0.92, baseline appears to be 0.76-0.82. She is currently receiving IV hydration (NS @125cc/hr). No hypotension or tachycardia noted. * Will obtain a MRSA nasal swab to assist w/ future abx decisions * C diff toxin screen has been ordered, not yet collected Plan Vancomycin IV * Loading dose: 1500 mg (22 mg/kg) * Maintenance dose: 1250 mg IV (18.4 mg/kg) every 24 hours * Goal trough level for pulmonary infxn : 15 to 20 mcg/mL * Trough level ordered for 12/06/16 Piperacillin/tazobactam * 3.375 g bolus administered over 30 minutes, then 3.375 g IV extended infusion every 8 hours for CrCl greater than 20 mL/min Pharmacy will continue to follow and will adjust dose/frequency as necessary. Thank you.
[2016-12-03] MEDS: AMLODIPINE BESYLATE 5 MG TAB PO SCH (09:33)
[2016-12-03] MEDS: CARVEDILOL 12.5 MG TAB PO SCH ×2 (09:33→21:19)
[2016-12-03] MEDS: VALSARTAN 80 MG TAB PO SCH (09:34)
[2016-12-03] MEDS: INSULIN ASPART 100 UNITS/ML 3 ML PEN SC SCH ×4 (09:37→21:00)
[2016-12-03] MEDS: INSULIN GLARGINE SOLOSTAR 100 UNITS/ML 3 ML PEN SC SCH ×2 (09:38→21:18)
[2016-12-03 09:45] LABS: BUN/CREATININE RATIO 10.8 (10-20); CALCIUM 8.7 mg/dl (8.5-10.1); CREATININE 0.84 mg/dl (0.60-1.20); MAGNESIUM 1.8 mg/dl (1.8-2.4); POTASSIUM 4.1 mmol/L (3.5-5.1)
[2016-12-03] MEDS ORDERED: NURSING VERBAL MED ORDER ONE (14:15)
[2016-12-03 17:24] LABS: ESTIMATED AVERAGE GLUCOSE 166 mg/dl; HA1C FLAG Normal (Normal)
[2016-12-03] MEDS: PIPERACILL/TAZOBAC IV 3.375 GM in DEXTROSE 5% 100ML IV SCH (18:21)
--- NOTE | 2016-12-03 20:07 | Progress Note ---
Medicine Progress Note Date & Time of Visit: Dec 03, 2016 at 16:49. Subjective Pt was seen and examined Lying in bed with no distress Pt said that she feels a little better now she said that she does not have watery diarrhea anymore denies any chest pain, palpitation, N/V and dizziness Objective Last 8 Hrs Date Time Temp Pulse Resp B/P (MAP) Pulse Ox O2 Delivery O2 Flow Rate FiO2 12/03/16 15:32 36.8 67 16 136/77 (96) 92 Nasal Cannula 2.0 12/03/16 15:30 92 Room Air Physical Exam: General- No acute distress Head- atraumatic Eyes- PERRL, EOMI ENT- oropharynx clear Neck- supple, NO JVD Lungs- clear to auscultation Heart- regular rhythm; no murmur Abdomen- normal bowel sounds, soft Extremities-no calf tenderness Neuro- alert, oriented x 3; PERRL, EOMI Skin- warm & dry Laboratory Results: Last 24 Hours Test 12/02/16 20:20 12/02/16 21:18 12/02/16 23:02 12/03/16 05:25 Urine Color DK YELLOW Urine Appearance CLOUDY Urine pH 5.0 Urine Specific [place] 1.031 Urine Protein 2+ Urine Glucose (UA) NEG Urine Ketones TRACE Urine Occult Blood TRACE Urine Nitrite NEG Urine Bilirubin NEG Urine Urobilinogen NEG Urine Leukocyte Esterase NEG Urine WBC (Auto) 1-5 /hpf Urine RBC (Auto) 0-4 /hpf Urine Hyaline Casts (Auto) 10-30 /lpf Urine Epithelial Cells (Auto) >30 /lpf Urine Bacteria (Auto) NEG Urine Renal Epithelial Cells 0-5 /lpf Urine Pathogenic Casts 0-3 GRANULAR CASTS /lpf Urine Mucus PRESENT White Blood Count 7.67 K/uL Red Blood Count 4.64 M/uL Hemoglobin 13.1 g/dL Hematocrit 40.2 % Mean Corpuscular Volume 86.6 fL Mean Corpuscular Hemoglobin 28.2 pg Mean Corpuscular Hemoglobin Concent 32.6 g/dl Platelet Count 226 K/uL Mean Platelet Volume 9.2 fL Neutrophils (%) (Auto) 74.7 % Lymphocytes (%) (Auto) 16.4 % Monocytes (%) (Auto) 5.9 % Eosinophils (%) (Auto) 2.0 % Basophils (%) (Auto) 0.3 % Neutrophils # (Auto) 5.74 K/uL Lymphocytes # (Auto) 1.26 K/uL Monocytes # (Auto) 0.45 K/uL Eosinophils # (Auto) 0.15 K/uL Basophils # (Auto) 0.02 K/uL RDW Standard Deviation 45.9 fL RDW Coefficient of Variation 14.9 % Immature Granulocyte % (Auto) 0.7 % Immature Granulocyte # (Auto) 0.05 K/uL Sodium Level 139 mmol/L Potassium Level mmol/L 3.0 mmol/L Chloride Level 106 mmol/L Carbon Dioxide Level 26 mmol/L Anion Gap 7.0 mmol/L Blood Urea Nitrogen 10 mg/dl Creatinine 0.92 mg/dl Est Creatinine Clear Calc Drug Dose 38.7 ml/min Estimated GFR () 65.3 Estimated GFR (Non- 56.4 BUN/Creatinine Ratio 11.3 Random Glucose 157 mg/dl Calcium Level 8.7 mg/dl Total Bilirubin 0.6 mg/dl Direct Bilirubin mg/dl 0.1 mg/dl Aspartate Amino Transf (AST/SGOT) U/L 11 U/L Alanine Aminotransferase (ALT/SGPT) 13 U/L Alkaline Phosphatase 82 U/L Total Protein 7.5 gm/dl Albumin 2.9 gm/dl Lipase 100 U/L Prothrombin Time 11.6 SECONDS Prothromb Time International Ratio 1.1 Estimated Average Glucose 166 mg/dl Hemoglobin A1c 7.4 % Test 12/03/16 08:09 12/03/16 09:15 Sodium Level 140 mmol/L Potassium Level 4.1 mmol/L Chloride Level 108 mmol/L Carbon Dioxide Level 25 mmol/L Anion Gap 7.0 mmol/L Blood Urea Nitrogen 9 mg/dl Creatinine 0.84 mg/dl Est Creatinine Clear Calc Drug Dose 42.4 ml/min Estimated GFR () 72.9 Estimated GFR (Non- 62.9 BUN/Creatinine Ratio 10.8 Random Glucose 149 mg/dl Calcium Level 8.7 mg/dl Phosphorus Level 3.0 mg/dl Magnesium Level 1.8 mg/dl Date/Time Source Procedure Growth Status 12/03/16 08:50 Blood Blood Culture Pending Received 12/03/16 08:36 Blood Blood Culture Pending Received 12/03/16 09:22 Nasal MRSA DNA Surveillance Screen - Final Specimen Negative for MRSA by DNA Probe Complete 12/03/16 09:15 Stool C.difficile Toxin B Gene (PCR) - Final No C. difficile toxin B gene detected Complete 12/03/16 09:15 Stool Rotavirus Antigen - Final Negative for Rotavirus Antigen Complete 12/03/16 09:15 Stool WBC Smear Pending Received 12/03/16 09:15 Stool Shiga Toxin Test Pending Received 12/03/16 09:15 Stool Stool Culture Pending Received Assessment & Plan Diarrhea Possible related to viral gastroenteritis CT abd showed no acute intra-abdominal pathology. Postsurgical changes of cholecystectomy. No postsurgical complication. Stool for C-Diff negative Vanco PO d/c On IVF Monitor electrolytes tolerates diet Improved Cough/Hypoxia Possible due to aspiration pneumonia from vomiting CXR showed bibasilar airspace opacities CT showed Extensive dependent right basilar consolidation with right lower lobe volume loss Started on Vanc/Zosyn (MRSA coverage with recent hospitalization). Blood and sputum cultures pending Hypokalemia Stable Continue monitor BMP CKD Stage III Stable Hypothyroidism cont home Synthroid DMII HbA1c 7.4 cont ISS/Lantus with carb coverage. HTN BP Controlled cont home med DVT proph-Heparin CODE STATUS Full Code Disposition Will discharge tomorrow Current Inpatient Medications: Current Inpatient Medications Medications (Trade) Dose Ordered Sig/Radha Route Start Time Stop Time Status Last Admin Dose Admin Heparin Sodium (Porcine) (Heparin Sq 5000 Unit/0.5ml) 5,000 unit Q8H SQ 12/03/16 07:00 01/02/17 06:59 12/03/16 15:48 5,000 UNIT Ondansetron HCl (Zofran Inj) 4 mg Q6H PRN IV 12/03/16 03:00 01/02/17 02:59 Insulin Glargine (Lantus Solostar Pen) 5 units Q12 SC 12/03/16 09:00 01/02/17 08:59 12/03/16 09:38 5 UNITS Insulin Aspart (novoLOG ASPART) SLIDING SCALE If C... ACHS SC 12/03/16 08:00 01/02/17 07:59 12/03/16 18:31 2 UNITS Glucose (Glucose 40% Gel) 15-30 GRAMS 15 GRAMS... UD PRN PO 12/03/16 03:00 01/02/17 02:59 Glucose (Glucose Chew Tab) 4-8 Tablets 4 Tabl... UD PRN PO 12/03/16 03:00 01/02/17 02:59 Dextrose (Dextrose 50% 50ML Syringe) 25-50ML OF 50% DW IV FOR... UD PRN IV 12/03/16 03:00 01/02/17 02:59 Glucagon (Glucagon Inj) 1 mg UD PRN SQ 12/03/16 03:00 01/02/17 02:59 Sodium Chloride 1,000 ml @ 125 mls/hr Q8H IV 12/03/16 06:00 12/03/16 21:59 12/03/16 13:18 125 MLS/HR Amlodipine Besylate (Norvasc Tab) 5 mg DAILY PO 12/03/16 09:00 01/02/17 08:59 12/03/16 09:33 5 MG Carvedilol (Coreg Tab) 12.5 mg BID PO 12/03/16 09:00 01/02/17 08:59 12/03/16 09:33 12.5 MG Levothyroxine Sodium (Synthroid Tab) 112 mcg DAILYBB PO 12/03/16 06:00 01/02/17 05:59 12/03/16 06:16 112 MCG Valsartan (Diovan Tab) 320 mg DAILY PO 12/03/16 09:00 01/02/17 08:59 12/03/16 09:34 320 MG Miscellaneous (Iv Fluids Completed) 1 ea PRN PRN N/A 12/03/16 03:45 12/03/17 03:44 Vancomycin HCl (Consult) 1 ea UD N/A 12/03/16 08:21 01/02/17 08:20 Piperacillin Sod/ Tazobactam Sod 3.375 gm/Dextrose 115 ml @ 28.75 mls/ hr Q8H IV 12/03/16 14:00 12/13/16 13:59 12/03/16 18:21 28.75 MLS/HR Piperacillin Sod/ Tazobactam Sod (Consult) 1 ea UD N/A 12/03/16 08:30 01/02/17 08:29 Vancomycin HCl 1250 mg/Sodium Chloride 275 ml @ 125 mls/hr Q24H IV 12/04/16 08:00 12/11/16 07:59
[2016-12-04] VITALS (9 sets, daily range): BP systolic 114–169; BP diastolic 61–76; PULSE 55–61; TEMP 36.7–37.3; O2SAT 89–95
[2016-12-04] MEDS: PIPERACILL/TAZOBAC IV 3.375 GM in DEXTROSE 5% 100ML IV SCH ×3 (01:52→18:42)
[2016-12-04] MEDS: LEVOTHYROXINE 112 MCG TAB PO SCH (05:40)
[2016-12-04] MEDS: HEPARIN SOD 5000 UNIT/0.5 ML CARP SQ SCH ×3 (05:41→21:50)
[2016-12-04 07:38] LABS: CREATININE 0.92 mg/dl (0.60-1.20); POTASSIUM 3.8 mmol/L (3.5-5.1)
[2016-12-04] MEDS ORDERED: VANCOMYCIN INJ 1,250 MG in SODIUM CHLORIDE 0.9% 250ML 250 ML IV SCH (08:00)
[2016-12-04] MEDS: VALSARTAN 80 MG TAB PO SCH (08:57)
[2016-12-04] MEDS: AMLODIPINE BESYLATE 5 MG TAB PO SCH (08:57)
[2016-12-04] MEDS: INSULIN ASPART 100 UNITS/ML 3 ML PEN SC SCH ×4 (09:02→21:49)
[2016-12-04] MEDS: INSULIN GLARGINE SOLOSTAR 100 UNITS/ML 3 ML PEN SC SCH ×2 (09:03→21:50)
[2016-12-04] MEDS: CARVEDILOL 12.5 MG TAB PO SCH ×2 (09:06→21:45)
--- NOTE | 2016-12-04 13:51 | DIAGNOSTIC IMAGING REPORT ---
CHEST ONE VIEW PORTABLE CLINICAL HISTORY: 86 years-old Female presenting with f/u. TECHNIQUE: Portable upright AP view of the chest was obtained. COMPARISON: 12/03/2016. FINDINGS: Atherosclerosis of aortic arch. Cardiac silhouette remains enlarged. Bibasilar hazy opacities not significantly changed. Interval development of small bilateral pleural effusions. No pneumothorax. Degenerative changes of the thoracic spine. Moderate hiatal hernia and/or elevation of the left hemidiaphragm. IMPRESSION: 1. Cardiomegaly with persistent bibasilar opacities and new small pleural effusions. This is most consistent with mild pulmonary edema, although aspiration cannot be excluded. Electronically signed by: Andrew Ho M.D. 12/04/2016 1:50 PM Dictated Date/Time: 12/04/2016 1:48 PM
--- NOTE | 2016-12-04 17:22 | Progress Note ---
Medicine Progress Note Date & Time of Visit: Dec 04, 2016 at 17:13. Subjective Pt was seen and examined Lying in bed with no distress Pt said that she feels much better today She said that she started to have lose stool today denies any chest pain, palpitation, dizziness and SOB Objective Last 8 Hrs Date Time Temp Pulse Resp B/P (MAP) Pulse Ox O2 Delivery O2 Flow Rate FiO2 12/04/16 15:58 37.3 61 17 136/74 (94) 93 Room Air 12/04/16 11:22 36.9 57 17 114/61 (78) 91 Room Air Physical Exam: General- No acute distress Head- atraumatic Eyes- PERRL, EOMI ENT- oropharynx clear Neck- supple, NO JVD Lungs- clear to auscultation Heart- regular rhythm; no murmur Abdomen- normal bowel sounds, soft Extremities-no calf tenderness Neuro- alert, oriented x 3; PERRL, EOMI Skin- warm & dry Laboratory Results: Last 24 Hours Test 12/03/16 20:41 12/04/16 06:39 12/04/16 07:58 12/04/16 12:17 Bedside Glucose 164 mg/dl 123 mg/dl 175 mg/dl Sodium Level 142 mmol/L Potassium Level 3.8 mmol/L Chloride Level 111 mmol/L Carbon Dioxide Level 24 mmol/L Anion Gap 7.0 mmol/L Blood Urea Nitrogen 11 mg/dl Creatinine 0.92 mg/dl Est Creatinine Clear Calc Drug Dose 38.7 ml/min Estimated GFR () 65.3 Estimated GFR (Non- 56.4 BUN/Creatinine Ratio 12.0 Random Glucose 129 mg/dl Calcium Level 8.0 mg/dl Assessment & Plan Diarrhea Possible related to viral gastroenteritis CT abd showed no acute intra-abdominal pathology. Postsurgical changes of cholecystectomy. No postsurgical complication. Stool for C-Diff negative Vanco PO d/c D/C IVF Monitor electrolytes tolerates diet Stolol is loose now might be related to the abx will continue monitor Cough/Hypoxia Possible due to aspiration pneumonia from vomiting CXR showed bibasilar airspace opacities CT showed Extensive dependent right basilar consolidation with right lower lobe volume loss On Vanco/Zosyn (MRSA coverage with recent hospitalization). Blood cx pending Repeat CXR showed Cardiomegaly with persistent bibasilar opacities and new small pleural effusions D/C IV vanco Afebrile Hypokalemia Stable Continue monitor BMP CKD Stage III Stable Hypothyroidism cont home Synthroid DMII HbA1c 7.4 cont ISS/Lantus with carb coverage. HTN BP Controlled cont home med DVT proph-Heparin CODE STATUS Full Code Disposition Will discharge tomorrow Current Inpatient Medications: Current Inpatient Medications Medications (Trade) Dose Ordered Sig/Radha Route Start Time Stop Time Status Last Admin Dose Admin Heparin Sodium (Porcine) (Heparin Sq 5000 Unit/0.5ml) 5,000 unit Q8H SQ 12/03/16 07:00 01/02/17 06:59 12/04/16 14:30 5,000 UNIT Ondansetron HCl (Zofran Inj) 4 mg Q6H PRN IV 12/03/16 03:00 01/02/17 02:59 Insulin Glargine (Lantus Solostar Pen) 5 units Q12 SC 12/03/16 09:00 01/02/17 08:59 12/04/16 09:03 5 UNITS Insulin Aspart (novoLOG ASPART) SLIDING SCALE If C... ACHS SC 12/03/16 08:00 01/02/17 07:59 12/04/16 13:39 1 UNITS Glucose (Glucose 40% Gel) 15-30 GRAMS 15 GRAMS... UD PRN PO 12/03/16 03:00 01/02/17 02:59 Glucose (Glucose Chew Tab) 4-8 Tablets 4 Tabl... UD PRN PO 12/03/16 03:00 01/02/17 02:59 Dextrose (Dextrose 50% 50ML Syringe) 25-50ML OF 50% DW IV FOR... UD PRN IV 12/03/16 03:00 01/02/17 02:59 Glucagon (Glucagon Inj) 1 mg UD PRN SQ 12/03/16 03:00 01/02/17 02:59 Amlodipine Besylate (Norvasc Tab) 5 mg DAILY PO 12/03/16 09:00 01/02/17 08:59 12/04/16 08:57 5 MG Carvedilol (Coreg Tab) 12.5 mg BID PO 12/03/16 09:00 01/02/17 08:59 12/04/16 09:06 12.5 MG Levothyroxine Sodium (Synthroid Tab) 112 mcg DAILYBB PO 12/03/16 06:00 01/02/17 05:59 12/04/16 05:40 112 MCG Valsartan (Diovan Tab) 320 mg DAILY PO 12/03/16 09:00 01/02/17 08:59 12/04/16 08:57 320 MG Miscellaneous (Iv Fluids Completed) 1 ea PRN PRN N/A 12/03/16 03:45 12/03/17 03:44 Vancomycin HCl (Consult) 1 ea UD N/A 12/03/16 08:21 01/02/17 08:20 Piperacillin Sod/ Tazobactam Sod 3.375 gm/Dextrose 115 ml @ 28.75 mls/ hr Q8H IV 12/03/16 14:00 12/13/16 13:59 12/04/16 10:36 28.75 MLS/HR Piperacillin Sod/ Tazobactam Sod (Consult) 1 ea UD N/A 12/03/16 08:30 01/02/17 08:29 Vancomycin HCl 1250 mg/Sodium Chloride 275 ml @ 125 mls/hr Q24H IV 12/04/16 08:00 12/11/16 07:59 12/04/16 07:53 125 MLS/HR
[2016-12-05] MEDS: PIPERACILL/TAZOBAC IV 3.375 GM in DEXTROSE 5% 100ML IV SCH ×2 (01:46→10:51)
[2016-12-05 03:36] VITALS: BP 155/70; PULSE 55; TEMP 36.8; O2SAT 97
[2016-12-05] MEDS: LEVOTHYROXINE 112 MCG TAB PO SCH (05:36)
[2016-12-05] MEDS: HEPARIN SOD 5000 UNIT/0.5 ML CARP SQ SCH ×2 (05:36→14:51)
[2016-12-05 07:24] VITALS: BP 185/69; PULSE 51; TEMP 36.9; O2SAT 95
[2016-12-05] MEDS: AMLODIPINE BESYLATE 5 MG TAB PO SCH (07:32)
[2016-12-05] MEDS: VALSARTAN 80 MG TAB PO SCH (07:32)
[2016-12-05 08:10] LABS: HEMATOCRIT 33.5 % (37-47); MEAN CELL VOLUME 87.2 fL (80-100); MEAN CORPUSCULAR HEMOGLOBIN 28.1 pg (25-34); MEAN CORPUSCULAR HGB CONC 32.2 g/dl (32-36); MEAN PLATELET VOLUME 9.5 fL (7.4-10.4); PLATELET COUNT 188 K/uL (130-400); RED BLOOD COUNT 3.84 M/uL (4.2-5.4)
[2016-12-05 08:35] VITALS: BP 156/75; PULSE 50; O2SAT 94
[2016-12-05] MEDS: CARVEDILOL 12.5 MG TAB PO SCH (08:36)
[2016-12-05 08:54] LABS: CREATININE 1.1 mg/dl (0.60-1.20)
[2016-12-05 08:55] LABS: CALCIUM 8.5 mg/dl (8.5-10.1); POTASSIUM 3.7 mmol/L (3.5-5.1)
[2016-12-05] MEDS: INSULIN GLARGINE SOLOSTAR 100 UNITS/ML 3 ML PEN SC SCH (10:19)
[2016-12-05] MEDS: INSULIN ASPART 100 UNITS/ML 3 ML PEN SC SCH ×2 (10:19→13:52)
--- NOTE | 2016-12-05 15:03 | Progress Note ---
Medicine Progress Note Date & Time of Visit: Dec 05, 2016 at 14:55. Subjective Pt was seen and examined sitting in chair with no distress eating lunch Pt said that she feels much better today she said that she had 2 loose bowel movement today denies any chest pain, palpitation, dizziness and sob Objective Last 8 Hrs Date Time Temp Pulse Resp B/P (MAP) Pulse Ox O2 Delivery O2 Flow Rate FiO2 12/05/16 08:35 50 156/75 (102) 94 Room Air 12/05/16 07:32 Nasal Cannula 2.0 12/05/16 07:24 36.9 51 16 185/69 (107) 95 Nasal Cannula 2.0 Physical Exam: General- No acute distress Head- atraumatic Eyes- PERRL, EOMI ENT- oropharynx clear Neck- supple, NO JVD Lungs- clear to auscultation Heart- regular rhythm; no murmur Abdomen- normal bowel sounds, soft Extremities-no calf tenderness Neuro- alert, oriented x 3; PERRL, EOMI Skin- warm & dry Laboratory Results: Last 24 Hours Test 12/04/16 17:21 12/04/16 20:48 12/05/16 07:44 12/05/16 08:25 Bedside Glucose 112 mg/dl 204 mg/dl 145 mg/dl White Blood Count 4.20 K/uL Red Blood Count 3.84 M/uL Hemoglobin 10.8 g/dL Hematocrit 33.5 % Mean Corpuscular Volume 87.2 fL Mean Corpuscular Hemoglobin 28.1 pg Mean Corpuscular Hemoglobin Concent 32.2 g/dl RDW Standard Deviation 47.7 fL RDW Coefficient of Variation 15.0 % Platelet Count 188 K/uL Mean Platelet Volume 9.5 fL Sodium Level 142 mmol/L Potassium Level 3.7 mmol/L Chloride Level 109 mmol/L Carbon Dioxide Level 25 mmol/L Anion Gap 7.0 mmol/L Blood Urea Nitrogen 12 mg/dl Creatinine 1.10 mg/dl Est Creatinine Clear Calc Drug Dose 32.4 ml/min Estimated GFR () 52.6 Estimated GFR (Non- 45.4 BUN/Creatinine Ratio 11.0 Random Glucose 130 mg/dl Calcium Level 8.5 mg/dl Assessment & Plan Diarrhea Possible related to viral gastroenteritis CT abd showed no acute intra-abdominal pathology. Postsurgical changes of cholecystectomy. No postsurgical complication. Stool for C-Diff negative Vanco PO d/c D/C IVF Monitor electrolytes tolerates diet Stool is loose now might be related to the abx stable Cough/Hypoxia Possible due to aspiration pneumonia from vomiting CXR showed bibasilar airspace opacities CT showed Extensive dependent right basilar consolidation with right lower lobe volume loss On Vanco/Zosyn (MRSA coverage with recent hospitalization). Blood cx no growth Repeat CXR showed Cardiomegaly with persistent bibasilar opacities and new small pleural effusions D/C IV vanco Will change abx to doxy Afebrile Hypokalemia Stable Continue monitor BMP CKD Stage III Stable Hypothyroidism cont home Synthroid DMII HbA1c 7.4 cont ISS/Lantus with carb coverage. HTN BP Controlled cont home med DVT proph-Heparin CODE STATUS Full Code Disposition Will discharge home today Current Inpatient Medications: Current Inpatient Medications Medications (Trade) Dose Ordered Sig/Radha Route Start Time Stop Time Status Last Admin Dose Admin Heparin Sodium (Porcine) (Heparin Sq 5000 Unit/0.5ml) 5,000 unit Q8H SQ 12/03/16 07:00 01/02/17 06:59 12/05/16 05:36 5,000 UNIT Ondansetron HCl (Zofran Inj) 4 mg Q6H PRN IV 12/03/16 03:00 01/02/17 02:59 Insulin Glargine (Lantus Solostar Pen) 5 units Q12 SC 12/03/16 09:00 01/02/17 08:59 12/05/16 10:19 5 UNITS Insulin Aspart (novoLOG ASPART) SLIDING SCALE If C... ACHS SC 12/03/16 08:00 01/02/17 07:59 12/05/16 13:52 2 UNITS Glucose (Glucose 40% Gel) 15-30 GRAMS 15 GRAMS... UD PRN PO 12/03/16 03:00 01/02/17 02:59 Glucose (Glucose Chew Tab) 4-8 Tablets 4 Tabl... UD PRN PO 12/03/16 03:00 01/02/17 02:59 Dextrose (Dextrose 50% 50ML Syringe) 25-50ML OF 50% DW IV FOR... UD PRN IV 12/03/16 03:00 01/02/17 02:59 Glucagon (Glucagon Inj) 1 mg UD PRN SQ 12/03/16 03:00 01/02/17 02:59 Amlodipine Besylate (Norvasc Tab) 5 mg DAILY PO 12/03/16 09:00 01/02/17 08:59 12/05/16 07:32 5 MG Carvedilol (Coreg Tab) 12.5 mg BID PO 12/03/16 09:00 01/02/17 08:59 12/04/16 21:45 12.5 MG Levothyroxine Sodium (Synthroid Tab) 112 mcg DAILYBB PO 12/03/16 06:00 01/02/17 05:59 12/05/16 05:36 112 MCG Valsartan (Diovan Tab) 320 mg DAILY PO 12/03/16 09:00 01/02/17 08:59 12/05/16 07:32 320 MG Miscellaneous (Iv Fluids Completed) 1 ea PRN PRN N/A 12/03/16 03:45 12/03/17 03:44 Piperacillin Sod/ Tazobactam Sod 3.375 gm/Dextrose 115 ml @ 28.75 mls/ hr Q8H IV 12/03/16 14:00 12/13/16 13:59 12/05/16 10:51 28.75 MLS/HR Piperacillin Sod/ Tazobactam Sod (Consult) 1 ea UD N/A 12/03/16 08:30 01/02/17 08:29
[2016-12-05] MEDS ORDERED: DOXY-300 PO (15:12)
[2016-12-05 15:16] VITALS: BP_SYST 162; BP_SYST 169; BP_DIAS 65; BP_DIAS 74; PULSE 59; TEMP 37; O2SAT 94
--- NOTE | 2016-12-05 15:23 | Discharge Instructions ---
Discharge Instructions Date of Service Dec 05, 2016. Admission Reason for Admission: Diarrhea Discharge Discharge Diagnosis / Problem: Diarrhea, Cough/Hypoxia, Pneumonia, Hypokalemia Discharge Goals Goal(s): Decrease discomfort, Improve function, Improve disease control Activity Recommendations Activity Limitations: resume your previous activity (as tolerated) . Instructions / Follow-Up Instructions / Follow-Up Call your primary care provider to schedule a follow up appointment within 1 week Complete the course of the antibiotic Fall precaution Current Hospital Diet Patient's current hospital diet: AHA Diet (Heart Healthy), Diabetes Type 2 Diet Discharge Diet Recommended Diet: AHA Diet (Heart Healthy), Diabetes Type 2 Diet Pending Studies Studies pending at discharge: no Laboratory Results Hemoglobin A1c Test 12/03/16 05:25 Range/Units Estimated Average Glucose 166 mg/dl Hemoglobin A1c 7.4 H 4.5-5.6 % Medical Emergencies . Who to Call and When: Medical Emergencies: If at any time you feel your situation is an emergency, please call 911 immediately. . Non-Emergent Contact Non-Emergency issues call your: Primary Care Provider Call Non-Emergent contact if: you have a fever, you have any medication questions . . "Provider Documentation" section prepared by Gilbert Granda. . VTE Core Measure Inpt VTE Proph given/why not?: Unfractionated heparin SQ
[2016-12-05 17:29] VITALS: BP 162/65; PULSE 59; TEMP 37; O2SAT 94
[2016-12-06] MEDS ORDERED: VANCOMYCIN TROUGH ONE (07:30)
--- NOTE | 2016-12-06 07:53 | Discharge Summary ---
Discharge Summary Date of Service Dec 06, 2016. Discharge Summary Admission Date: Dec 03, 2016 at 01:11 Discharge Date: Dec 05, 2016 Discharge Disposition: Home Principal Diagnosis: Diarrhea Secondary Diagnoses/Problems: Cough/Hypoxia Pneumonia Hypokalemia CKD stage 3 Hypothyroidism HTN DM II Procedures: CHEST ONE VIEW PORTABLE CLINICAL HISTORY: 86 years-old Female presenting with f/u. TECHNIQUE: Portable upright AP view of the chest was obtained. COMPARISON: 12/03/2016. FINDINGS: Atherosclerosis of aortic arch. Cardiac silhouette remains enlarged. Bibasilar hazy opacities not significantly changed. Interval development of small bilateral pleural effusions. No pneumothorax. Degenerative changes of the thoracic spine. Moderate hiatal hernia and/or elevation of the left hemidiaphragm. IMPRESSION: 1. Cardiomegaly with persistent bibasilar opacities and new small pleural effusions. This is most consistent with mild pulmonary edema, although aspiration cannot be excluded. Electronically signed by: Andrew Ho M.D. 12/04/2016 1:50 PM Dictated Date/Time: 12/04/2016 1:48 PM ABD/PELVIS NO IV OR ORAL CONT CLINICAL HISTORY: 86 years-old Female presenting with acute abdominal pain. TECHNIQUE: Multidetector CT of the abdomen and pelvis was performed without the use of intravenous contrast. IV contrast: None. A dose lowering technique was used consistent with the principles of ALARA (as low as reasonably achievable). COMPARISON: HIDA scan from 11/07/2016 and ultrasound from 11/07/2016. CT DOSE (mGy.cm): The estimated cumulative dose is 433.94 mGy.cm. FINDINGS: Separations Scientist topogram: Cholecystectomy clips noted. Lung bases: Extensive dependent right basilar consolidation with right lower lobe volume loss, likely extensive passive atelectasis. Mild multichamber enlargement of the heart. Coronary artery and aortic valve calcification. Small right pleural effusion. Liver: Normal morphology. Normal density. Biliary: Mild intrahepatic and extrahepatic biliary ductal prominence, likely a reservoir effect in the post cholecystectomy state. Gallbladder surgically absent. Pancreas: Severe parenchymal atrophy. Spleen: Normal. Adrenal glands: Nodular thickening of the left adrenal gland, nonspecific. Right adrenal gland normal. Kidneys and ureters: Normal noncontrast appearance. No hydronephrosis. Bladder: Incompletely evaluated secondary to underdistention. Pelvic organs: Uterus surgically absent. No adnexal masses. Bowel: Diverticulosis of the sigmoid colon with chronic diverticular disease. Artifact noted across the left hemipelvis. Few diverticula in the descending colon. No bowel obstruction. Large hiatal hernia with the majority of the stomach above the diaphragm. No obstruction or volvulus. Peritoneal cavity: No free fluid or intraperitoneal gas. Lymph nodes: No gross lymphadenopathy allowing for noncontrast technique. Vasculature: Atherosclerosis of the normal caliber abdominal aorta. Abdominal wall: Infiltration over the subcutaneous tissue of the lower ventral right abdominal wall. Musculoskeletal: Degenerative changes of the spine. IMPRESSION: 1. No acute intra-abdominal pathology. 2. Postsurgical changes of cholecystectomy. No postsurgical complication. 3. Chronic diverticular disease of the sigmoid colon. No diverticulitis. 4. Extensive right basilar atelectasis with small right pleural effusion. 5. Large hiatal hernia. 6. Infiltration of the superficial right ventral abdominal wall, possibly postsurgical or related to medication administration. Correlate clinically to exclude cellulitis. Electronically signed by: Andrew Ho M.D. 12/02/2016 10:52 PM Dictated Date/Time: 12/02/2016 10:43 PM Medication Reconciliation New Medications: Doxycycline (Monohydrate) (Doxycycline) 100 Mg Cap 1 CAP PO BID for 4 Days Continued Medications: Amlodipine (Norvasc) 5 Mg Tab 5 MG PO DAILY, TAB Calcium Carbonate-Vitamin D (Calcium 600 + D) 1 Tab Tab 1 TAB PO DAILY Carvedilol (Coreg) 12.5 Mg Tab 1 TAB PO BID, TAB Ethacrynic Acid (Edecrin) 25 Mg Tab 25 MG PO BID AFTER MEALS Ibandronate Sodium (Boniva) 150 Mg Tab 1 TAB PO MONTHLY, TAB Levothyroxine Sodium (Levothyroxine Sodium) 112 Mcg Tab 1 TAB PO DAILY, TAB Metformin Hcl (Glucophage) 500 Mg Tab 500 MG PO BID, TAB Multiple Vitamins W/ Minerals (Centrum Silver 50+Women) 1 Tab Tab 1 TAB PO DAILY Valsartan (Diovan) 320 Mg Tab 320 MG PO DAILY, TAB Admission Information HPI (per Admitting provider): 86 yo F with recent cholecystectomy 2 weeks ago presents with excessive nonbloody diarrhea that began 24 hours ago and had a few episodes of nausea w vomiting, also, today. She was recently admitted to this hospital and treated for cholecystitis. She went home, became worse within a day or so and went to [facility] where she had her gallbladder removed. In that time, however, she was on multiple antibiotics. She denies any fevers but does report some chills which she says is common for her after any surgery involving anesthesia, and the chills will last up to 6 weeks. She reports an uneventful post-operative course and was feeling well, tolerating PO up until last night when this began. She only reports some abdominal cramping just prior to any diarrhea, but there is no severe abdominal pain. She denies any chest pain or shortness of breath. She is wearing oxygen for comfort right now, and does report some slight coughing that just began today. Otherwise she is feeling well without symptoms. Up until today she reports tolerating food well and drinking lots of gingerale and water at home. Also she denies eating any strange foods from buffets or potlucks, and denies any handling of raw chicken. Physical Exam (per Admitting): General Appearance: WD/WN, no apparent distress Head: normocephalic, atraumatic Eyes: normal inspection, sclerae normal ENT: hearing grossly normal, + pertinent finding (mucous membranes are dry) Neck: trachea midline Respiratory/Chest: lungs clear, normal breath sounds, no respiratory distress, no accessory muscle use Cardiovascular: regular rate, rhythm, no edema, no gallop, no JVD, no murmur , normal peripheral pulses Abdomen/GI: normal bowel sounds, soft, + tenderness (slight TTP generally with some guarding.) Back: normal inspection Extremities/Musculoskelatal: normal inspection, no calf tenderness, no pedal edema Neurologic/Psych: 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 Postsurgical changes of cholecystectomy. No postsurgical complication. Stool for C-Diff negative Vanco PO d/c D/C IVF Monitor electrolytes tolerates diet Stool is loose now might be related to the abx stable Cough/Hypoxia Possible due to aspiration pneumonia from vomiting CXR showed bibasilar airspace opacities CT showed Extensive dependent right basilar consolidation with right lower lobe volume loss On Vanco/Zosyn (MRSA coverage with recent hospitalization). Blood cx no growth Repeat CXR showed Cardiomegaly with persistent bibasilar opacities and new small pleural effusions D/C IV vanco Will change abx to doxy Afebrile Hypokalemia Stable Continue monitor BMP CKD Stage III Stable Hypothyroidism cont home Synthroid DMII HbA1c 7.4 cont ISS/Lantus with carb coverage. HTN BP Controlled cont home med DVT proph-Heparin CODE STATUS Full Code Disposition Will discharge home today Total time spent on discharge = 35 minutes This includes examination of the patient, discharge planning, medication reconciliation, and communication with other providers. Discharge Instructions Discharge Instructions Date of Service Dec 05, 2016. Admission Reason for Admission: Diarrhea Discharge Discharge Diagnosis / Problem: Diarrhea, Cough/Hypoxia, Pneumonia, Hypokalemia Discharge Goals Goal(s): Decrease discomfort, Improve function, Improve disease control Activity Recommendations Activity Limitations: resume your previous activity (as tolerated) . Instructions / Follow-Up Instructions / Follow-Up Call your primary care provider to schedule a follow up appointment within 1 week Complete the course of the antibiotic Fall precaution Current Hospital Diet Patient's current hospital diet: AHA Diet (Heart Healthy), Diabetes Type 2 Diet Discharge Diet Recommended Diet: AHA Diet (Heart Healthy), Diabetes Type 2 Diet Pending Studies Studies pending at discharge: no Laboratory Results Hemoglobin A1c Test 12/03/16 05:25 Range/Units Estimated Average Glucose 166 mg/dl Hemoglobin A1c 7.4 H 4.5-5.6 % Medical Emergencies . Who to Call and When: Medical Emergencies: If at any time you feel your situation is an emergency, please call 911 immediately. . Non-Emergent Contact Non-Emergency issues call your: Primary Care Provider Call Non-Emergent contact if: you have a fever, you have any medication questions . . "Provider Documentation" section prepared by Gilbert Granda. . VTE Core Measure Inpt VTE Proph given/why not?: Unfractionated heparin SQ Additional Copies To Tony Tracy M.D.
[2016-12-06 16:28] LABS: NOROVIRUS RNA** TC 19098X NOT DETECTED; O&P GIARDIA AG NOT DETECTED (NOT DETECTED)
== END 2016-12-05 17:45 | disposition home or self-care (01) ==
LOC: EDBD 20:08 → C.EDC 20:10 → C.MSN 12-03 01:11 → ENRESERV 12-03 01:40
PROVIDERS: ADMIT Hospitalist; ATTEND Internal Medicine
DX: R19.7 Diarrhea, unspecified (principal); J18.9 Pneumonia, unspecified organism; E11.22 Type 2 diabetes mellitus with diabetic chronic kidney disease; I12.9 Hypertensive chronic kidney disease with stage 1 through stage 4 chronic kidney disease, or unspecified chronic kidney disease; N18.3 Chronic kidney disease, stage 3 (moderate); E78.5 Hyperlipidemia, unspecified; E03.9 Hypothyroidism, unspecified; M81.0 Age-related osteoporosis without current pathological fracture; E87.6 Hypokalemia; Z86.711 Personal history of pulmonary embolism; Z79.84 Long term (current) use of oral hypoglycemic drugs; Z79.899 Other long term (current) drug therapy